=== PATIENT | female | born 1950 | race Caucasian/White ===

== ENCOUNTER 2017-01-29 11:48 | Emergency (ER) | payer OTHER ==
[~2017-01-29] VITALS: Ht 152.4 cm; Wt 36.3 kg
[~2017-01-29 11:48] MED LIST: /METO25TAB PO; /PANT40TA OR; /SUCR1TA OR; /WARF25TA PO; ACET50TAOT PO; AMLO5TAB2 PO; AVEL1TAB PO; CALC PO; CALC20SPR; COLA100C3 PO; COZA50TA18 OR; FLAG500T OR; KETO10TAB PO; LEVOXYL25 MCG OR; LOPR50TA OR; METO25TAB PO; MILKSUS PO; MIRA255PW PO; NORCOTAB PO; OMEP40CA2 PO; PAIN325T OR; PERCOCET PO; PREV30CA6 PO; STOMACH PILL PO; SUCR1TA PO; SYNT112T2 PO; TRAM50TA2 PO; TRAN1.5D2 TOP; ZOFR20TA PO; [UNRECOGNIZED DRUG - CODE] PO; [UNRECOGNIZED DRUG - OTHER] PO
[2017-01-29] MEDS ORDERED: TRAM50TA2 PO (12:06)
[2017-01-29] MEDS ORDERED: LEVO88TA3 PO (12:06)
[2017-01-29] MEDS ORDERED: NS 1,000 ML IV ONE (12:15)
[2017-01-29] MEDS ORDERED: FAMOTIDINE IV BAG 20 MG in APPROPRIATE DILUENT 1 EA IV ONE (12:15)
[2017-01-29] MEDS ORDERED: ONDANSETRON 4MG/2ML VIAL (J2405) IV ONE (12:15)
[2017-01-29 12:43] LABS: BASO % 0.3 % (0.0-1.0); EOS # 0.2 K/mm3 (0.0-0.50); EOS % 1.1 % (0.0-3.0); LARGE UNSTAINED CELL # 0.1 K/mm3 (0.0-0.4); LARGE UNSTAINED CELL % 0.8 % (0.0-4.0); LYMPH % 7.2 % (24.0-44.0); MEAN CORPUSCULAR HEMOGLOBIN 30.4 pg (27.0-33.0); MEAN CORPUSCULAR HGB CONC 33.1 g/dl (32.0-36.5); MEAN CORPUSCULAR VOLUME 91.8 fl (80.0-96.0); MONO # 0.6 K/mm3 (0.0-0.8); MONO % 3.9 % (0.0-5.0); NEUTROPHILS # 12.2 K/mm3 (1.8-7.7); NEUTROPHILS % 86.7 % (36.0-66.0); PLATELET COUNT, AUTOMATED 248 k/mm3 (150-450); RED CELL DISTRIBUTION WIDTH 11.9 % (11.5-14.5); WHITE BLOOD COUNT 14.1 K/mm3 (4.0-10.0)
--- NOTE | 2017-01-29 12:50 | REP ---
Clinical: Abdominal pain. Technique: Upright view of the chest with supine and upright views of the abdomen and pelvis. Comparison: 05/17/2016. Findings: Frontal view of the chest demonstrates chronic changes without free air below the diaphragm to suspect pneumoperitoneum. Supine and upright views of the abdomen and pelvis demonstrate surgical changes. Nonspecific bowel gas pattern without obstruction or perforation. No organomegaly. Skeletal structures demonstrate osteopenia and degenerative change. Right hip replacement. Impression: Nonspecific bowel gas pattern. Signed by Dejan Ledbetter MD 01/29/2017 12:41 P
[2017-01-29 12:51] LABS: INR 1.01
[2017-01-29 13:04] LABS: ALBUMIN 3.6 GM/DL (3.2-5.2); ALBUMIN/GLOBULIN RATIO 1.29 (1.00-1.93); ALKALINE PHOSPHATASE 106 U/L (45-117); ALT/SGPT 22 U/L (12-78); ANION GAP 8 MEQ/L (8-16); AST/SGOT 25 U/L (15-37); BILIRUBIN,DIRECT 0.1 MG/DL (0.0-0.2); BILIRUBIN,TOTAL 0.5 MG/DL (0.2-1.0); BLOOD UREA NITROGEN 13 MG/DL (7-18); CALCIUM LEVEL 8.2 MG/DL (8.8-10.2); CARBON DIOXIDE LEVEL 29 MEQ/L (21-32); CHLORIDE LEVEL 103 MEQ/L (98-107); CREATININE FOR GFR 0.71 MG/DL (0.55-1.02); GLOMERULAR FILTRATION RATE > 60.0 (>45); GLUCOSE, FASTING 101 MG/DL (80-110); SODIUM LEVEL 140 MEQ/L (136-145); TOTAL PROTEIN 6.4 GM/DL (6.4-8.2)
[2017-01-29] MEDS ORDERED: NORC1TAB4 PO (14:24)
[2017-01-29] MEDS ORDERED: ASAC800T2 PO (14:24)
[2017-01-29 14:34] VITALS: BP 140/76
== END 2017-01-29 14:45 | disposition home or self-care (01) ==
LOC: EDBD 11:48 → M ED 12:40
DX: K52.9 Noninfective gastroenteritis and colitis, unspecified (principal); Z87.891 Personal history of nicotine dependence; Z88.8 Allergy status to other drugs, medicaments and biological substances; Z79.899 Other long term (current) drug therapy
CPT/HCPCS: 74022; 80048; 80076; 83690; 85025; 85610; 96365; 96375; 99282; J2405

== ENCOUNTER → 2017-02-11 | Outpatient (REF) | payer OTHER ==
[~2017-02-11] MED LIST changes: +ASAC800T2 PO; +LEVO88TA3 PO; +NORC1TAB4 PO
== END ==
LOC: M LAB REF 09:59
PROVIDERS: ATTEND Physician Assistant Medical
DX: R19.7 Diarrhea, unspecified (principal)

== ENCOUNTER → 2017-03-01 | Outpatient (CLI) | payer OTHER ==
[~2017-03-01] VITALS: Ht 152.4 cm; Wt 36.3 kg
[~2017-03-01] MED LIST changes: +LIDOCAINE 2% INJ 100 MG/5 ML SDV (FOR ANES.) As Ordered ONE; +MESA800T PO; +METO12TA PO; +NS 1,000 ML IV SCH; +PROM25TA GT; +PROPOFOL 200 MG/20 ML VIAL As Ordered ONE; +fentaNYL 100 MCG/2 ML INJECTION (J3010) As Ordered ONE
--- NOTE | 2017-03-01 13:20 | ROOR ---
Patient Name: Kelli Garibay Procedure Date: 03/01/2017 1:02 PM Date of : 1950 Age: 66 Room: [facility] Gender: Female Note Status: Finalized Procedure: Upper GI endoscopy Indications: Nausea with vomiting Providers: Chirag GRIER MD Referring MD: VENUS TABOR MD Requesting Provider: Medicines: Monitored Anesthesia Care Complications: No immediate complications. Procedure: Pre-Anesthesia Assessment: - The heart rate, respiratory rate, oxygen saturations, blood pressure, adequacy of pulmonary ventilation, and response to care were monitored throughout the procedure. The Endoscope was introduced through the mouth, and advanced to the jejunum. The upper GI endoscopy was accomplished without difficulty. The patient tolerated the procedure well. Findings: The examined esophagus was normal. 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 The gastrojejunal anastomosis was characterized by healthy appearing mucosa. This was traversed. The ncohrjdm-bc-zjlwarl limb was examined. The exam of the stomach was otherwise normal. The cardia and gastric fundus were normal on retroflexion. The examined jejunum was normal. Impression: - Normal esophagus. - Chacho-en-Y gastrojejunostomy with gastrojejunal anastomosis characterized by healthy appearing mucosa. - Normal examined jejunum. - No specimens collected. Recommendation: - Observe patient's clinical course. - Gastroparesis diet: - Eat smaller, more frequent meals throughout the day. - Low fat diet. - Liquid/soft foods are tolerated better than solid foods. - Low fiber/well cooked vegetables are tolerated better than high fiber/fibrous foods/raw vegetables. - Avoid medications that inhibit gastric/intestinal motility such as narcotic medications. Chirag Grier MD Chirag GRIER MD 03/01/2017 1:20:43 PM This report has been signed electronically. Number of Addenda: 0 Note Initiated On: 03/01/2017 1:02 PM Estimated Blood Loss: Estimated blood loss: none.
--- NOTE | 2017-03-01 13:42 | ROOR ---
Patient Name: Kelli Garibay Procedure Date: 03/01/2017 1:02 PM Date of : 1950 Age: 66 Room: [facility] Gender: Female Note Status: Finalized Procedure: Colonoscopy Indications: Generalized abdominal pain, Change in bowel habits Providers: Chirag GRIER MD Referring MD: VENUS TABOR MD Requesting Provider: Medicines: Monitored Anesthesia Care Complications: No immediate complications. Procedure: Pre-Anesthesia Assessment: - The heart rate, respiratory rate, oxygen saturations, blood pressure, adequacy of pulmonary ventilation, and response to care were monitored throughout the procedure. The Colonoscope was introduced through the anus and advanced to the cecum, identified by appendiceal orifice and ileocecal valve. The colonoscopy was performed without difficulty. The patient tolerated the procedure well. The quality of the bowel preparation was good. Findings: The perianal and digital rectal examinations were normal. Two sessile polyps were found in the ascending colon and cecum. The polyps were diminutive in size. These polyps were removed with a jumbo cold forceps. Resection and retrieval were complete. A localized area of granular mucosa was found at the anus. Biopsies were taken with a cold forceps for histology. The exam was otherwise without abnormality on direct and retroflexion views. Biopsies for histology were taken with a cold forceps from the entire colon for evaluation of microscopic colitis. Impression: - Two diminutive polyps in the ascending colon and in the cecum, removed with a jumbo cold forceps. Resected and retrieved. - Granular mucosa at the anal verge near small internal hemorrhoids. Biopsied. - The colonoscopy was otherwise normal on direct and retroflexion views. - Biopsies were taken with a cold forceps from the entire colon for evaluation of microscopic colitis. Recommendation: - Telephone endoscopist for pathology results in 2 weeks. - If the pathology report reveals adenomatous tissue, then repeat the colonoscopy for surveillance in 5 years. - Await pathology results. Chirag Grier MD Chirag GRIER MD 03/01/2017 1:42:25 PM This report has been signed electronically. Number of Addenda: 0 Note Initiated On: 03/01/2017 1:02 PM Estimated Blood Loss: Estimated blood loss: none.
[2017-03-01 14:20] VITALS: BP 133/81
== END ==
LOC: M OPP 10:41
PROVIDERS: ATTEND Internal Medicine Gastroenterology
DX: R10.84 Generalized abdominal pain (principal); R19.4 Change in bowel habit; Z12.11 Encounter for screening for malignant neoplasm of colon; D12.0 Benign neoplasm of cecum; D12.2 Benign neoplasm of ascending colon; K62.89 Other specified diseases of anus and rectum; R11.2 Nausea with vomiting, unspecified; Z98.0 Intestinal bypass and anastomosis status; E07.9 Disorder of thyroid, unspecified; I10 Essential (primary) hypertension; K31.84 Gastroparesis; K52.9 Noninfective gastroenteritis and colitis, unspecified; Z87.442 Personal history of urinary calculi; Z79.899 Other long term (current) drug therapy
CPT/HCPCS: 43235; 45380; 88305; 99156; 99157; J3010

== ENCOUNTER 2017-03-21 07:01 | Emergency (ER) | payer OTHER ==
[~2017-03-21] VITALS: Ht 152.4 cm; Wt 36.3 kg
[~2017-03-21 07:01] MED LIST changes: -LIDOCAINE 2% INJ 100 MG/5 ML SDV (FOR ANES.) As Ordered ONE; -NS 1,000 ML IV SCH; -PROPOFOL 200 MG/20 ML VIAL As Ordered ONE; -fentaNYL 100 MCG/2 ML INJECTION (J3010) As Ordered ONE
[2017-03-21 08:11] LABS: BASO % 0.6 % (0.0-1.0); EOS # 0.4 K/mm3 (0.0-0.50); LARGE UNSTAINED CELL # 0.1 K/mm3 (0.0-0.4); LARGE UNSTAINED CELL % 1.1 % (0.0-4.0); LYMPH # 0.9 K/mm3 (1.5-4.5); MEAN CORPUSCULAR HEMOGLOBIN 31.2 pg (27.0-33.0); MEAN CORPUSCULAR VOLUME 91.9 fl (80.0-96.0); MONO # 0.4 K/mm3 (0.0-0.8); MONO % 4.3 % (0.0-5.0); NEUTROPHILS # 7.3 K/mm3 (1.8-7.7); NEUTROPHILS % 80.9 % (36.0-66.0); PLATELET COUNT, AUTOMATED 270 k/mm3 (150-450); RED CELL DISTRIBUTION WIDTH 12.4 % (11.5-14.5)
[2017-03-21 08:16] LABS: INR 0.96
--- NOTE | 2017-03-21 08:23 | REP ---
Clinical: Shortness of breath . Comparison: 01/29/2017 . Findings: The mediastinum and cardiac silhouette are stable and within normal limits for portable technique. The lung cash demonstrate chronic changes without acute consolidation, effusion, or pneumothorax. Skeletal structures are intact. Impression: Chronic stable changes. No acute cardiopulmonary process. Signed by Dejan Ledbetter MD 03/21/2017 08:14 A
[2017-03-21 08:27] LABS: ALBUMIN 3.4 GM/DL (3.2-5.2); ALBUMIN/GLOBULIN RATIO 0.87 (1.00-1.93); ALKALINE PHOSPHATASE 110 U/L (45-117); ALT/SGPT 19 U/L (12-78); ANION GAP 5 MEQ/L (8-16); AST/SGOT 20 U/L (15-37); BILIRUBIN,DIRECT 0.1 MG/DL (0.0-0.2); BILIRUBIN,TOTAL 0.4 MG/DL (0.2-1.0); BLOOD UREA NITROGEN 11 MG/DL (7-18); CALCIUM LEVEL 8.7 MG/DL (8.8-10.2); CARBON DIOXIDE LEVEL 32 MEQ/L (21-32); CHLORIDE LEVEL 103 MEQ/L (98-107); CREATININE FOR GFR 0.69 MG/DL (0.55-1.02); GLOMERULAR FILTRATION RATE > 60.0 (>45); GLUCOSE, FASTING 114 MG/DL (80-110); POTASSIUM SERUM 3.8 MEQ/L (3.5-5.1); SODIUM LEVEL 140 MEQ/L (136-145); TOTAL PROTEIN 7.3 GM/DL (6.4-8.2)
[2017-03-21] MEDS ORDERED: ISOVUE-370 76% 100ML VIAL (Q9967) As Ordered ONE (09:03)
--- NOTE | 2017-03-21 09:45 | REP ---
Clinical: Acute chest pain and shortness of breath. Technique: Axial contrast enhanced images from the thoracic inlet to the upper abdomen using 100 ml Isovue 370 intravenous contrast material with coronal and sagittal re-formations. Findings: Satisfactory enhancement of the pulmonary vasculature is achieved and no filling defects are identified to suggest pulmonary embolus. The lung cash demonstrate chronic COPD and emphysematous changes as well as moderate bronchiectasis and scattered scarring. Nodular densities at the base of the right middle lobe remains stable compared to 2015. A 9 mm non solid density in the periphery of the right middle lobe (image 50) as well as small presumed area of atelectasis/pneumonia involving the right lower lobe represent change from prior examination and warrants followup. No effusion. No pneumothorax. Atherosclerotic changes to the thoracic aorta and coronary arteries noted without aortic aneurysm/dissection or cardiomegaly. No pericardial effusion is appreciated. No obvious adenopathy. Surgical clips at the gastroesophageal junction and evidence of prior gastric bypass surgery noted. Musculoskeletal structures demonstrate age-related degenerative changes without focal osseous abnormality. Impression: 1. No evidence for pulmonary embolus. 2. Small areas of right lower lobe atelectasis/pneumonia identified. 3. Chronic COPD/emphysematous changes and bronchiectasis with mild scattered scarring. 4. A 9 mm non solid opacities in the periphery of the right middle lobe warrants followup in 3 months. Signed by Dejan Ledbetter MD 03/21/2017 09:37 A
[2017-03-21] MEDS ORDERED: MOXIFLOXACIN 400 MG TAB PO ONE (10:00)
[2017-03-21] MEDS ORDERED: AVEL1TAB PO ×2 (12:28→12:43)
[2017-03-21] MEDS ORDERED: ZOFR4TAB3 PO (12:29)
[2017-03-21 12:35] VITALS: BP 141/85
--- NOTE | 2017-03-21 21:08 | ECGEPIP ---
Stationary ECG Study 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
--- NOTE | 2017-03-22 06:32 | ECGEPIP ---
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
--- NOTE | 2017-03-22 17:24 | ED PDOC ---
Post-Departure Follow-Up dr dinero faxed formal report of cta for fu Farrah Lazo MD March 22, 2017 17:24
== END 2017-03-21 12:48 | disposition home or self-care (01) ==
LOC: M ED 07:40
DX: R06.00 Dyspnea, unspecified (principal); J18.9 Pneumonia, unspecified organism; R07.89 Other chest pain; R91.8 Other nonspecific abnormal finding of lung field; J47.9 Bronchiectasis, uncomplicated; I10 Essential (primary) hypertension; Z87.19 Personal history of other diseases of the digestive system; E03.9 Hypothyroidism, unspecified; D64.9 Anemia, unspecified; Z79.899 Other long term (current) drug therapy; Z88.8 Allergy status to other drugs, medicaments and biological substances
CPT/HCPCS: 71010; 71275; 80048; 80076; 82550; 82553; 83880; 84484; 85025; 85610; 85730; 93005; 93041; 94760; 99285; Q9967

== ENCOUNTER → 2017-04-07 | Outpatient (REF) | payer OTHER ==
[~2017-04-07] MED LIST changes: +ZOFR4TAB3 PO
== END ==
LOC: M LAB REF 10:45
PROVIDERS: ATTEND Internal Medicine
DX: A09 Infectious gastroenteritis and colitis, unspecified (principal)

== ENCOUNTER → 2018-01-11 | Outpatient (REF) | payer OTHER | LOC: M LAB REF 16:15 | DX: N39.0 Urinary tract infection, site not specified (principal) | CPT/HCPCS: 87088; 87186 ==

== ENCOUNTER → 2018-03-29 | Outpatient (CLI) | payer OTHER | LOC: M WHC 14:42 | DX: Z12.31 Encounter for screening mammogram for malignant neoplasm of breast (principal) | CPT/HCPCS: 77067 ==

== ENCOUNTER → 2018-06-10 | Outpatient (REF) | payer OTHER | LOC: M LAB REF 10:23 | DX: R30.0 Dysuria (principal) | CPT/HCPCS: 87186 ==

== ENCOUNTER → 2018-09-23 | Outpatient (CLI) | payer OTHER | LOC: M WUC 11:24 | DX: J18.1 Lobar pneumonia, unspecified organism (principal); J90 Pleural effusion, not elsewhere classified; R07.1 Chest pain on breathing; R05 Cough | CPT/HCPCS: 71046 ==

== ENCOUNTER → 2018-10-27 | Outpatient (CLI) | payer OTHER ==
[~2018-10-27] MED LIST changes: +ACET500T15 PO; -ACET50TAOT PO; -AMLO5TAB2 PO; +AMLO5TAB6 PO; -ASAC800T2 PO; +ASAC800T3 PO; -AVEL1TAB PO; +AVEL1TAB3 PO; -COLA100C3 PO; +COLA100C5 PO; -METO12TA PO; +METO1TAB87 PO; +MILK120011 PO; -MILKSUS PO; -PROM25TA GT; +PROM25TA12 GT; -ZOFR20TA PO; +ZOFR4TAB14 PO; +ZOFR4TAB16 PO; -ZOFR4TAB3 PO
--- NOTE | 2018-10-27 12:07 | REP ---
Chest two views HISTORY: Pneumonia Comparison: 09/23/2018 The lungs are hyperinflated. The lungs are clear. The heart is normal in size. The pulmonary vasculature is normal in appearance. The bony structure is intact. IMPRESSION: No acute disease. Electronically Signed by Johan Collado MD 10/27/2018 11:59 A
== END ==
LOC: M WUC 10:41
PROVIDERS: ATTEND Internal Medicine
DX: J18.9 Pneumonia, unspecified organism (principal)

== ENCOUNTER 2019-01-20 12:31 | Inpatient (IN) | payer MEDICARE, OTHER ==
[~2019-01-20] VITALS: Ht 152.4 cm; Wt 48.8 kg
[2019-01-20] MEDS ORDERED: AMIT25TA PO (12:50)
[2019-01-20] MEDS ORDERED: PARO1TAB33 PO (12:51)
[2019-01-20] MEDS ORDERED: NS 500 ML IV ONE (13:00)
[2019-01-20] MEDS ORDERED: ONDANSETRON 4MG/2ML VIAL (J2405) IV ONE (13:00)
[2019-01-20] MEDS ORDERED: MORPHINE 4 MG/ML 1ML VIAL/SYRINGE (J2270) IV ONE (13:15)
[2019-01-20 13:49] LABS: BASO % 0.2 % (0.0-1.0); EOS % 0.2 % (0.0-3.0); HEMATOCRIT 39.6 % (36.0-47.0); HEMOGLOBIN 13.3 g/dl (12.0-15.5); LYMPH # 0.7 10^3/uL (1.5-4.5); LYMPH % 5.8 % (24.0-44.0); MEAN CORPUSCULAR HEMOGLOBIN 29.4 pg (27.0-33.0); MEAN CORPUSCULAR HGB CONC 33.6 g/dl (32.0-36.5); MEAN CORPUSCULAR VOLUME 87.4 fl (80.0-96.0); MONO # 0.9 10^3/uL (0.0-0.8); MONO % 6.9 % (0.0-5.0); NEUTROPHILS # 10.8 10^3/uL (1.8-7.7); NEUTROPHILS % 86.2 % (36.0-66.0); PLATELET COUNT, AUTOMATED 178 10^3/uL (150-450); RED BLOOD COUNT 4.53 10^6/uL (4.00-5.40); WHITE BLOOD COUNT 12.5 10^3/uL (4.0-10.0)
[2019-01-20 14:23] LABS: ALBUMIN 3.3 GM/DL (3.2-5.2); ALT/SGPT 11 U/L (12-78); BILIRUBIN,DIRECT 0.3 MG/DL (0.0-0.2); BILIRUBIN,TOTAL 0.9 MG/DL (0.2-1.0); BLOOD UREA NITROGEN 9 MG/DL (7-18); CARBON DIOXIDE LEVEL 26 MEQ/L (21-32); CHLORIDE LEVEL 100 MEQ/L (98-107); CPK CREATINE PHOSPHOKINASE 84 U/L (26-192); CREATININE FOR GFR 0.72 MG/DL (0.55-1.30); GLOMERULAR FILTRATION RATE > 60.0 (>45); GLUCOSE, FASTING 104 MG/DL (70-100); LIPASE 59 U/L (73-393); MB/CK RELATIVE INDEX 4.29 (< OR =4); POTASSIUM SERUM 2.8 MEQ/L (3.5-5.1); SODIUM LEVEL 136 MEQ/L (136-145); TOTAL PROTEIN 7.3 GM/DL (6.4-8.2); TROPONIN I < 0.02 NG/ML (< 0.10)
[2019-01-20] MEDS ORDERED: POTASSIUM CHLORIDE 10 MEQ SR TABLET PO ONE (14:30)
--- NOTE | 2019-01-20 14:33 | REP ---
Abdomen flat upright PA chest three views History: Abdominal pain Comparison: 01/29/2017 Air is present in small and large intestine. There are no air-fluid levels or dilated loops of intestine. There is no pneumoperitoneum. The lungs are clear. Impression: Nonspecific bowel gas pattern. Electronically Signed by Johan Collado MD 01/20/2019 02:25 P
[2019-01-20] MEDS ORDERED: BACTRIM 160MG/800MG DS TAB PO ONE (15:00)
[2019-01-20] MEDS ORDERED: BACT800T5 PO (15:04)
[2019-01-20] MEDS ORDERED: methylPREDNISolone INJ 125 MG/2 ML VIAL (J2930) IV ONE (15:15)
[2019-01-20] MEDS ORDERED: ACETAMINOPHEN 325 MG TAB PO ONE (16:15)
[2019-01-20] MEDS ORDERED: LEVALBUTEROL 1.25 MG/0.5 ML CONCENTRATE NEB NEB ONE (17:30)
[2019-01-20] MEDS ORDERED: LEVO100T54 PO (17:59)
[2019-01-20] MEDS ORDERED: ONDA4TAB6 PO (17:59)
[2019-01-20] MEDS ORDERED: ONDANSETRON 4MG/2ML VIAL (J2405) IV PRN (19:00)
[2019-01-20] MEDS ORDERED: traMADol 50 MG TAB PO PRN (19:00)
[2019-01-20] MEDS ORDERED: ACETAMINOPHEN 500 MG TAB PO PRN (19:00)
[2019-01-20] MEDS: NS 1,000 ML IV SCH (19:31)
--- NOTE | 2019-01-20 20:09 | HPE ---
DATE OF ADMISSION: 01/20/2019 A 68-year-old female with past medical history of chronic gastric ulcers status post partial gastrectomy with Billroth II anastomosis, history of hypertension, hypothyroidism, and a remote history of chronic active tobacco abuse presents to the emergency room with nausea, vomiting, and diarrhea which began last that continued into Tuesday and on into the day of admission today, so she came to the emergency room (ER) for evaluation. In the ER she was found to be hypokalemic and had a potassium of 40 mEq for repletion. Was started on intravenous (IV) fluids. Patient was noted to have a fever of 102. Was given Tylenol and was found to also be hypoxic on room air. Was saturating in the 86th percentile and was started on 2 liters nasal cannula. She was given nebulizer treatment and 125 of Solu-Medrol. She denied any shortness of breath or any upper respiratory symptoms, only the diarrhea and nausea and vomiting. She had no dysuria or frequency or urgency; however, the urinalysis did reveal that she had a urinary tract infection (UTI). Patient was started on intravenous (IV) Cipro. She has never had a history of pulmonary function tests (PFTs), though. She has a 25-year history of tobacco abuse; quit in 1993. She will be admitted for further management. PAST MEDICAL HISTORY: 1. Hypertension. 2. Hypothyroidism. 3. History of intractable ulcers, status post partial gastrectomy with Billroth II anastomosis. 4. History of gastroesophageal reflux disease (GERD). 5. Depression. ALLERGIES: NONSTEROIDAL ANTI-INFLAMMATORY DRUGS (NSAIDS). FAMILY HISTORY: Noncontributory. SOCIAL HISTORY: Patient denies tobacco, alcohol, or illicit drugs. Does have a 25-pack year history. She quit in 1993, though. HOME MEDICATIONS: - Tylenol as needed - amitriptyline 25 mg orally at bedtime - amlodipine 5 mg orally daily - Synthroid 100 mcg orally daily - metoprolol 25 mg orally twice daily - omeprazole 40 mg orally at bedtime - Zofran 4 mg orally every 4 hours as needed - paroxetine 20 mg orally daily - tramadol 50 mg orally three times a day as needed REVIEW OF SYSTEMS: Negative for [id number]-budsm systems except what is mentioned in the history of present illness (HPI). VITAL SIGNS: Blood pressure is 154/80, heart rate is 114, regular, respiratory rate is 20, temperature is currently 98.3, but it was as high as 102.2, oxygen saturation is 92% on 1 liter nasal cannula. HEAD: Atraumatic, normocephalic. NECK: Supple. No jugular venous distention (JVD). LUNGS: Diminished breath sounds bilaterally. HEART: S1, S2 audible. No murmurs appreciated. ABDOMEN: Soft. Positive bowel sounds. No pedal edema. SKIN: Intact. NEUROLOGIC: Patient awake, alert, oriented times three. LABORATORY DATA: WBC 12.5, hemoglobin 13.3, hematocrit 39.6, platelets are 178,000. Sodium 136, potassium 2.8, chloride 100, CO2 of 26, BUN is 9, creatinine 0.72. AST 16, ALT 11, lipase 59. Urinalysis is suggestive of a UTI. IMPRESSION: 1. Urinary tract infection (UTI) 2. Chronic obstructive pulmonary disease (COPD) exacerbation. 3. Hyperkalemia. 4. Viral gastroenteritis. PLAN: Patient will be admitted to the medical/surgical floor. We will continue the patient on intravenous (IV) Zofran for symptomatic relief. We will also start her on IV fluids with normal saline 100 mL an hour. I will put her on IV Cipro 400 every 12 until urine cultures come back and will give her DuoNeb and Solu-Medrol IV 40 mg every 8. She definitely has COPD, but it has not been diagnosed yet through PFTs. Recommending PFTs ordered as an outpatient for further diagnosis and severity of obstruction. Chest x-ray was negative for consolidation, so no antibiotics are necessary for an infectious etiology for the COPD exacerbation. Will continue following her care in the medical/surgical floor.
[2019-01-20 20:45] VITALS: BP 131/66
[2019-01-20] MEDS: METOPROLOL TART 25 MG TABLET PO SCH (21:54)
[2019-01-20] MEDS: AMITRIPTYLINE 25 MG TAB PO SCH (21:54)
[2019-01-20] MEDS: OMEPRAZOLE 20 MG CAP PO SCH (21:54)
[2019-01-20] MEDS: methylPREDNISolone INJ 125 MG/2 ML VIAL (J2930) IV SCH (23:25)
[2019-01-21] MEDS: NS 1,000 ML IV SCH ×3 (05:25→22:30)
[2019-01-21 06:00] VITALS: BP 101/67
[2019-01-21 06:57] LABS: BASO % 0.1 % (0.0-1.0); HEMATOCRIT 37.6 % (36.0-47.0); LYMPH # 0.6 10^3/uL (1.5-4.5); LYMPH % 5.7 % (24.0-44.0); MEAN CORPUSCULAR HEMOGLOBIN 28.7 pg (27.0-33.0); MEAN CORPUSCULAR HGB CONC 31.9 g/dl (32.0-36.5); MONO # 0.4 10^3/uL (0.0-0.8); MONO % 4.2 % (0.0-5.0); NEUTROPHILS # 9.4 10^3/uL (1.8-7.7); PLATELET COUNT, AUTOMATED 179 10^3/uL (150-450); RED BLOOD COUNT 4.18 10^6/uL (4.00-5.40); WHITE BLOOD COUNT 10.5 10^3/uL (4.0-10.0)
[2019-01-21 07:25] LABS: BLOOD UREA NITROGEN 9 MG/DL (7-18); CARBON DIOXIDE LEVEL 27 MEQ/L (21-32); CHLORIDE LEVEL 107 MEQ/L (98-107); CREATININE FOR GFR 0.64 MG/DL (0.55-1.30); GLOMERULAR FILTRATION RATE > 60.0 (>45); GLUCOSE, FASTING 163 MG/DL (70-100); POTASSIUM SERUM 3.8 MEQ/L (3.5-5.1); SODIUM LEVEL 139 MEQ/L (136-145)
[2019-01-21] MEDS: methylPREDNISolone INJ 125 MG/2 ML VIAL (J2930) IV SCH ×2 (08:29→17:29)
[2019-01-21] MEDS: amLODIPine 5 MG TAB PO SCH (08:31)
[2019-01-21] MEDS: METOPROLOL TART 25 MG TABLET PO SCH ×2 (08:31→21:30)
[2019-01-21] MEDS: LEVOTHYROXINE 100MCG TABLET (0.1MG) PO SCH (08:31)
[2019-01-21] MEDS ORDERED: FLUBLOK(EGG FREE)(QUAD)INFLUENZA VACC 0.5ML SYRINGE (90682)18YRS&OLDER IM ONE (09:00)
[2019-01-21 14:00] VITALS: BP 132/83
[2019-01-21] MEDS: ONDANSETRON 4 MG ORAL DISINTEGRATING TAB (Q0162 PER 1MG) PO PRN (14:37)
[2019-01-21] MEDS: LEVALBUTEROL 1.25 MG/0.5 ML CONCENTRATE NEB NEB PRN ×2 (17:28→21:30)
[2019-01-21] MEDS: BENZONATATE 100 MG CAP PO SCH (17:28)
[2019-01-21] MEDS: PARoxetine 20 MG TAB PO SCH (18:02)
--- NOTE | 2019-01-21 18:39 | ECGEPIP ---
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
--- NOTE | 2019-01-21 20:57 | IPN ---
DATE: 01/21/2019 SUBJECTIVE: Patient seen and examined in the room today. Patient states since admission her diarrhea has been improving. No recurrence of diarrhea. At baseline, patient had loose stool approximately three times a day. Prior to admission, patient had severe nausea, vomiting and diarrhea that she says stool streamed out of her. Patient also noted to have increased cough. Patient stated she has never had pulmonary function tests in the past. She did feel some improvement since admission. OBJECTIVE: VITAL SIGNS: Temperature 97.1, pulse 74, respirations 18, blood pressure 101/62, pulse oximetry 96% on 2 liters nasal cannula. GENERAL: Patient is alert and awake, fatigued. HEENT: Normocephalic, atraumatic. CARDIOVASCULAR: Positive S1, S2. Regular rate. LUNGS: Decreased breath sounds bilaterally. I cannot appreciate any significant crackles. No wheezes appreciated at the time of the encounter. ABDOMEN: Soft, nontender. Bowel sounds present. EXTREMITIES: No significant edema appreciated. LABORATORY DATA: WBC 10.5, hemoglobin 12, hematocrit 37.6, platelet count is 179. Sodium is 139, potassium 3.8, chloride 107, carbon dioxide is 27, BUN is 9, creatinine 0.86, GFR greater than 60. Microbiology: Urine culture shows contamination. ASSESSMENT AND PLAN: 1. Severe diarrhea. Gastrointestinal (GI) panel ordered; however, since admission, patient does not have any significant stool output. Continue intravenous (IV) fluids. Continue to monitor patient's GI symptoms. 2. Acute respiratory distress with increased cough. Patient does have a significant smoking history; however, patient never had a pulmonary function test performed in the past. Patient had a chest x-ray on admission. No significant findings noted on the x-ray. Will also follow with a respiratory panel. Empirically, patient was started on ciprofloxacin. It was thought that patient may have chronic obstructive pulmonary disease (COPD) exacerbation. Will continue the steroids and as needed nebulizers this morning. 3. History of intractable ulcer status post partial gastrostomy. Since the procedure, patient has had loose stool and patient has 3-4 loose bowel movements; however, patient stated her current severity and frequency of the diarrhea is not her baseline. 4. Hypothyroidism. On Synthroid. 5. Hypokalemia. Presented with potassium level of 3.8. Most likely due to the severe GI loss. Supplement was given to the patient. Currently, the potassium is in the normal range. Continue to monitor. 6. On amitriptyline and Paxil. 7. Hypertension. On Norvasc. On Lopressor. 8. Deep venous thrombosis (DVT) prophylaxis. On thromboembolitic deterrents (TEDs) and sequentials. MTDD
[2019-01-21] MEDS: OMEPRAZOLE 20 MG CAP PO SCH (21:29)
[2019-01-21] MEDS: CIPROFLOXACIN 400 MG in APPROPRIATE DILUENT 1 EA IV SCH (21:29)
[2019-01-21] MEDS: AMITRIPTYLINE 25 MG TAB PO SCH (21:29)
[2019-01-21 22:00] VITALS: BP 146/70
[2019-01-22] MEDS: methylPREDNISolone INJ 125 MG/2 ML VIAL (J2930) IV SCH ×4 (00:25→23:15)
[2019-01-22] MEDS: BENZONATATE 100 MG CAP PO SCH ×4 (00:26→23:15)
[2019-01-22] MEDS: LEVALBUTEROL 1.25 MG/0.5 ML CONCENTRATE NEB NEB PRN ×4 (04:49→20:54)
[2019-01-22 06:00] VITALS: BP 142/74
[2019-01-22 06:48] LABS: HEMATOCRIT 33.3 % (36.0-47.0); MEAN CORPUSCULAR HEMOGLOBIN 29.4 pg (27.0-33.0); PLATELET COUNT, AUTOMATED 183 10^3/uL (150-450); RED BLOOD COUNT 3.74 10^6/uL (4.00-5.40); WHITE BLOOD COUNT 11.7 10^3/uL (4.0-10.0)
[2019-01-22 07:10] LABS: BLOOD UREA NITROGEN 7 MG/DL (7-18); CALCIUM LEVEL 7.9 MG/DL (8.8-10.2); CARBON DIOXIDE LEVEL 25 MEQ/L (21-32); CHLORIDE LEVEL 112 MEQ/L (98-107); CREATININE FOR GFR 0.64 MG/DL (0.55-1.30); GLOMERULAR FILTRATION RATE > 60.0 (>45); GLUCOSE, FASTING 154 MG/DL (70-100); MAGNESIUM LEVEL 1.8 MG/DL (1.8-2.4); POTASSIUM SERUM 3.1 MEQ/L (3.5-5.1); SODIUM LEVEL 143 MEQ/L (136-145)
[2019-01-22] MEDS ORDERED: POTASSIUM CHLORIDE 10 MEQ SR TABLET PO ONE (07:45)
[2019-01-22] MEDS: LEVOTHYROXINE 100MCG TABLET (0.1MG) PO SCH (08:03)
[2019-01-22] MEDS: amLODIPine 5 MG TAB PO SCH (08:03)
[2019-01-22] MEDS: PARoxetine 20 MG TAB PO SCH (08:03)
[2019-01-22] MEDS: CIPROFLOXACIN 400 MG in APPROPRIATE DILUENT 1 EA IV SCH (08:04)
[2019-01-22] MEDS: NS 1,000 ML IV SCH ×2 (08:04→21:01)
[2019-01-22] MEDS: METOPROLOL TART 25 MG TABLET PO SCH ×2 (08:04→21:00)
[2019-01-22 14:00] VITALS: BP 144/68
[2019-01-22 20:00] VITALS: BP 157/74
--- NOTE | 2019-01-22 20:06 | IPNPDOC ---
Text Note Date of Service The patient was seen on 01/22/19. NOTE SUBJECTIVE: Patient is seen and examined in the room today. Patient states nausea, vomiting and diarrhea improved. Patient notices increased cough with sputum color change especially in the last several days. OBJECTIVE: VITAL SIGNS: Listed below. GENERAL: Patient is alert and awake, fatigued. HEENT: Normocephalic, atraumatic. CARDIOVASCULAR: Positive S1, S2. Regular rate. LUNGS: Decreased breath sounds bilaterally. No significant crackles. No wheezes appreciated at the time of the encounter. ABDOMEN: Soft, nontender. Bowel sounds present. EXTREMITIES: No significant edema appreciated. LABORATORY DATA: Listed below. Microbiology: Urine culture shows contamination. ASSESSMENT AND PLAN: #. Acute respiratory distress with increased cough. - Patient has a significant smoking history. Never had PFT performed. CXR did not show significant finding. - Respiratory panel ordered previously but it was not performed. Will re-order the panel. Will order sputum culture. - Patient complains about increased cough and sputum color change. Breathing is improved with neb treatment. Continue with steroid, Levaquin and PRN neb #. Severe diarrhea. - Gastrointestinal (GI) panel ordered; however, since admission, patient does not have any significant stool output. - Continue intravenous (IV) fluids. Continue to monitor patient's GI symptoms. #. History of gastric ulcer status post partial gastrostomy. - Since the procedure, patient has had loose stool and patient has 3-4 loose bowel movements; however, patient stated her current severity and frequency of the diarrhea is not her baseline. - On PPI. #. Hypokalemia. - Presented with potassium level of 2.8. Most likely due to the severe GI loss prior to admission. Supplement was given to the patient. Will supplement if needed. #. Hypothyroidism. - On Synthroid. #. Depression. - On amitriptyline and Paxil. #. Hypertension. - On Norvasc. On Lopressor. #. Deep venous thrombosis (DVT) prophylaxis. - On thromboembolitic deterrents (TEDs) and sequentials. VS,Fishbone, I+O VS, Fishbone, I+O Laboratory Tests 01/22/19 06:32 Red Blood Count 3.74 L, Mean Corpuscular Volume 89.0, Mean Corpuscular Hemoglobin 29.4, Mean Corpuscular Hemoglobin Concent 33.0, Red Cell Distribution Width 13.3, Calcium Level 7.9 L Vital Signs Date Time Temp Pulse Resp B/P (MAP) Pulse Ox O2 Delivery O2 Flow Rate FiO2 01/22/19 14:00 98.4 115 18 144/68 (93) 94 01/21/19 08:15 2.0 01/20/19 18:16 Nasal Cannula I&O- Last 24 Hours up to 6 AM 01/22/19 06:00 Intake Total 780 ml Output Total 1200 ml Balance -420 ml LIVAN GREY DO Jan 22, 2019 20:06
[2019-01-22] MEDS: AMITRIPTYLINE 25 MG TAB PO SCH (21:00)
[2019-01-22] MEDS: OMEPRAZOLE 20 MG CAP PO SCH (21:00)
[2019-01-23 05:00] VITALS: BP 166/87
[2019-01-23] MEDS: LevoFLOXacin 750 MG TABLET PO SCH (05:17)
[2019-01-23] MEDS: LEVOTHYROXINE 100MCG TABLET (0.1MG) PO SCH (05:17)
[2019-01-23] MEDS: LEVALBUTEROL 1.25 MG/0.5 ML CONCENTRATE NEB NEB PRN ×4 (05:26→20:12)
[2019-01-23] MEDS: NS 1,000 ML IV SCH (06:14)
[2019-01-23 07:04] LABS: HEMATOCRIT 35.3 % (36.0-47.0); HEMOGLOBIN 11.5 g/dl (12.0-15.5); MEAN CORPUSCULAR HEMOGLOBIN 28.8 pg (27.0-33.0); MEAN CORPUSCULAR HGB CONC 32.6 g/dl (32.0-36.5); MEAN CORPUSCULAR VOLUME 88.3 fl (80.0-96.0); PLATELET COUNT, AUTOMATED 222 10^3/uL (150-450); WHITE BLOOD COUNT 12.2 10^3/uL (4.0-10.0)
[2019-01-23 07:25] LABS: BLOOD UREA NITROGEN 5 MG/DL (7-18); CALCIUM LEVEL 7.9 MG/DL (8.8-10.2); CARBON DIOXIDE LEVEL 26 MEQ/L (21-32); CHLORIDE LEVEL 108 MEQ/L (98-107); CREATININE FOR GFR 0.65 MG/DL (0.55-1.30); GLOMERULAR FILTRATION RATE > 60.0 (>45); GLUCOSE, FASTING 124 MG/DL (70-100); MAGNESIUM LEVEL 2.1 MG/DL (1.8-2.4); SODIUM LEVEL 142 MEQ/L (136-145)
[2019-01-23] MEDS: BENZONATATE 100 MG CAP PO SCH ×3 (08:42→23:37)
[2019-01-23] MEDS: PARoxetine 20 MG TAB PO SCH (08:43)
[2019-01-23] MEDS: amLODIPine 5 MG TAB PO SCH (08:43)
[2019-01-23] MEDS ORDERED: POTASSIUM CHLORIDE 10 MEQ SR TABLET PO ONE ×2 (08:45→18:00)
[2019-01-23] MEDS: METOPROLOL TART 25 MG TABLET PO SCH ×2 (08:46→20:43)
[2019-01-23] MEDS: methylPREDNISolone INJ 125 MG/2 ML VIAL (J2930) IV SCH (08:47)
[2019-01-23 14:00] VITALS: BP 148/78
[2019-01-23] MEDS: ONDANSETRON 4 MG ORAL DISINTEGRATING TAB (Q0162 PER 1MG) PO PRN (15:04)
[2019-01-23] MEDS: predniSONE 20 MG TAB PO SCH (16:02)
--- NOTE | 2019-01-23 18:02 | IPNPDOC ---
Subjective Date Seen The patient was seen on 01/23/19. Subjective Chief Complaint/HPI Patient seen and examined at bedside. Reports continued improvement of her respiratory status. Her IV steroids have been transitioned to by mouth. Objective Physical Examination General Exam: Positive: Alert, Cooperative, No Acute Distress ENT Exam: Positive: Atraumatic, Mucous membr. moist/pink Neck Exam: Negative: JVD Chest Exam: Positive: Diminished Heart Exam: Positive: Rate Normal, Normal S1, Normal S2 Abdomen Exam: Positive: Soft; Negative: Tenderness Extremity Exam: Negative: Tenderness, Swelling Psych Exam: Positive: Oriented x 3 Assessment /Plan Plan/VTE VTE Prophylaxis Ordered?: Yes Plan Acute Respiratory Distress possibly 2/2 Pneumonia, underlying COPD CXR did not show significant finding. Respiratory panel negative Patient reports smoking 1.5 PPD of Tobacco for 40+ years, quit 20+ years ago. However denies ever having formal PFTs done Symptoms have improved with Xopenex therapy, Steroids, and Levaquin--we will cont to monitor Patient advised to follow-up as an outpatient for PFTs once she is over her respiratory illness Severe Diarrhea, resolved Gastrointestinal (GI) panel ordered; however, since admission, patient does not have any significant stool output. History of gastric ulcer status post partial gastrostomy. Continue PPI. Hypothyroidism. On Synthroid. Depression. On amitriptyline and Paxil. Hypertension. Continue Norvasc, Lopressor. Deep venous thrombosis (DVT) prophylaxis. (TEDs) and sequentials. Disposition-pending continued clinical improvement. IV SoluMedrol transitioned to by mouth prednisone. Anticipate discharge in 24-48 hours. VS, I&O, 24H, Fishbone Vital Signs/I&O Vital Signs Date Time Temp Pulse Resp B/P (MAP) Pulse Ox O2 Delivery O2 Flow Rate FiO2 01/23/19 14:00 97.8 76 18 148/78 (101) 97 01/21/19 08:15 2.0 01/20/19 18:16 Nasal Cannula I&O- Last 24 Hours up to 6 AM 01/23/19 06:00 Intake Total 2040 ml Output Total 1000 ml Balance 1040 ml Laboratory Data 24H LABS Laboratory Tests 2 01/23/19 06:26: Nucleated Red Blood Cells % (auto) 0.0, Anion Gap 8, Glomerular Filtration Rate > 60.0, Blood Urea Nitrogen 5L, Creatinine 0.65, Sodium Level 142, Potassium Level 3.0L, Chloride Level 108H, Carbon Dioxide Level 26, Calcium Level 7.9L, Magnesium Level 2.1 CBC/BMP Laboratory Tests 01/23/19 06:26 Red Blood Count 4.00, Mean Corpuscular Volume 88.3, Mean Corpuscular Hemoglobin 28.8, Mean Corpuscular Hemoglobin Concent 32.6, Red Cell Distribution Width 13.4, Calcium Level 7.9 L Microbiology Microbiology 01/20/19 Blood Culture - Preliminary, Resulted No Growth after 72 hours. All specime... 01/20/19 Blood Culture - Preliminary, Resulted No Growth after 72 hours. All specime... 01/23/19 Gram Stain - Final, Resulted 01/23/19 Sputum Culture, Resulted Pending 01/22/19 Respiratory Virus Panel (PCR) (KRISTEN) - Final, Complete 01/20/19 Urine Culture - Final, Complete CARRIE ANDINO MD Jan 23, 2019 18:02
[2019-01-23] MEDS: OMEPRAZOLE 20 MG CAP PO SCH (20:43)
[2019-01-23] MEDS: AMITRIPTYLINE 25 MG TAB PO SCH (20:43)
[2019-01-23 22:00] VITALS: BP 144/73
[2019-01-24 06:00] VITALS: BP 140/85
[2019-01-24] MEDS: LevoFLOXacin 750 MG TABLET PO SCH (06:13)
[2019-01-24] MEDS: LEVOTHYROXINE 100MCG TABLET (0.1MG) PO SCH (06:13)
[2019-01-24 07:13] LABS: HEMATOCRIT 39.3 % (36.0-47.0); HEMOGLOBIN 12.7 g/dl (12.0-15.5); MEAN CORPUSCULAR HEMOGLOBIN 28.8 pg (27.0-33.0); MEAN CORPUSCULAR HGB CONC 32.3 g/dl (32.0-36.5); MEAN CORPUSCULAR VOLUME 89.1 fl (80.0-96.0); PLATELET COUNT, AUTOMATED 232 10^3/uL (150-450); RED BLOOD COUNT 4.41 10^6/uL (4.00-5.40); WHITE BLOOD COUNT 13.6 10^3/uL (4.0-10.0)
[2019-01-24 07:45] LABS: BLOOD UREA NITROGEN 8 MG/DL (7-18); CALCIUM LEVEL 8.6 MG/DL (8.8-10.2); CARBON DIOXIDE LEVEL 32 MEQ/L (21-32); CHLORIDE LEVEL 101 MEQ/L (98-107); CREATININE FOR GFR 0.59 MG/DL (0.55-1.30); GLOMERULAR FILTRATION RATE > 60.0 (>45); GLUCOSE, FASTING 100 MG/DL (70-100); MAGNESIUM LEVEL 1.8 MG/DL (1.8-2.4); POTASSIUM SERUM 3.3 MEQ/L (3.5-5.1); SODIUM LEVEL 140 MEQ/L (136-145)
[2019-01-24] MEDS: LEVALBUTEROL 1.25 MG/0.5 ML CONCENTRATE NEB NEB PRN (08:08)
[2019-01-24 08:49] VITALS: BP 140/85
[2019-01-24] MEDS: PARoxetine 20 MG TAB PO SCH (08:49)
[2019-01-24] MEDS: predniSONE 20 MG TAB PO SCH (08:49)
[2019-01-24] MEDS: amLODIPine 5 MG TAB PO SCH (08:49)
[2019-01-24] MEDS: METOPROLOL TART 25 MG TABLET PO SCH (08:49)
[2019-01-24] MEDS: BENZONATATE 100 MG CAP PO SCH (08:49)
[2019-01-24] MEDS ORDERED: PROAAER10 INH (10:24)
[2019-01-24] MEDS ORDERED: PRED10TA2 PO (10:24)
[2019-01-24] MEDS ORDERED: LEVA750T7 PO (10:24)
--- NOTE | 2019-01-24 16:29 | DS.PDOC ---
Discharge Summary General Date of Admission Jan 22, 2019 at 07:36 Date of Discharge 01/24/19 Discharge Summary PROCEDURES PERFORMED DURING STAY: None. ADMITTING/DISCHARGE DIAGNOSES: Acute Respiratory Distress possibly 2/2 Pneumonia, underlying COPD Hypertension. Hypothyroidism. History of intractable ulcers, status post partial gastrectomy with Billroth II anastomosis. History of gastroesophageal reflux disease (GERD). Depression ?COPD COMPLICATIONS/CHIEF COMPLAINT: Hypokalemia, Uti. HISTORY OF PRESENT ILLNESS: . 68-year-old female with past medical history of hypertension, hypothyroidism, GERD, ?COPD, and depression presented to the ER with a chief complaint of worsening shortness of breath. The patient stated that she was having fevers, chills, and a productive cough at home. She denied any complaints of chest pain, palpitations, abdominal pain, or any nausea/vomiting/diarrhea. The patient was admitted to the hospitalist service with a diagnosis of community-acquired pneumonia and possible underlying COPD exacerbation. During hospitalization, the patient was treated with antibiotic therapy and steroids. The patient's respiratory status significantly improved thereafter. The patient has been transitioned to by mouth antibiotic therapy and a prednisone taper. The patient states that she is feeling much better and is eager to return home. I have advised the patient to follow-up with her primary care physician within 7 days. The patient is also to get PFTs done once her respiratory status is optimized. Lastly, the patient is to return to the ER for any acute emergencies. DISCHARGE MEDICATIONS: Please see below. ALLERGIES: Please see below. PHYSICAL EXAMINATION ON DISCHARGE: VITAL SIGNS: Please see below. General Exam: Positive: Alert, Cooperative, No Acute Distress ENT Exam: Positive: Atraumatic, Mucous membr. moist/pink Neck Exam: Negative: JVD Chest Exam: Positive: Diminished Heart Exam: Positive: Rate Normal, Normal S1, Normal S2 Abdomen Exam: Positive: Soft; Negative: Tenderness Extremity Exam: Negative: Tenderness, Swelling Psych Exam: Positive: Oriented x 3 LABORATORY DATA: Please see below. IMAGING: Abdomen flat upright PA chest three views History: Abdominal pain Comparison: 01/29/2017 Air is present in small and large intestine. There are no air-fluid levels or dilated loops of intestine. There is no pneumoperitoneum. The lungs are clear. Impression: Nonspecific bowel gas pattern. PROGNOSIS: Fair ACTIVITY: As tolerated. DIET: 2gm low sodium diet DISCHARGE PLAN: DISPOSITION: 01 Home, Self-Care. DISCHARGE INSTRUCTIONS: I have advised the patient to follow-up with her primary care physician within 7 days. The patient is also to get PFTs done once her respiratory status is optimized. Lastly, the patient is to return to the ER for any acute emergencies. DISCHARGE CONDITION: Stable. TIME SPENT ON DISCHARGE: Greater than 30 minutes. Vital Signs/I&Os Vital Signs Date Time Temp Pulse Resp B/P (MAP) Pulse Ox O2 Delivery O2 Flow Rate FiO2 01/24/19 08:49 99 140/85 01/24/19 06:00 96.9 19 91 01/21/19 08:15 2.0 01/20/19 18:16 Nasal Cannula I&O- Last 24 Hours up to 6 AM 01/24/19 06:00 Intake Total 1110 ml Output Total 1750 ml Balance -640 ml Laboratory Data Labs 24H Laboratory Tests 2 01/24/19 06:32: Nucleated Red Blood Cells % (auto) 0.0, Anion Gap 7L, Glomerular Filtration Rate > 60.0, Blood Urea Nitrogen 8#, Creatinine 0.59, Sodium Level 140, Potassium Level 3.3L, Chloride Level 101, Carbon Dioxide Level 32, Calcium Level 8.6L, Magnesium Level 1.8 CBC/BMP Laboratory Tests 01/24/19 06:32 Red Blood Count 4.41, Mean Corpuscular Volume 89.1, Mean Corpuscular Hemoglobin 28.8, Mean Corpuscular Hemoglobin Concent 32.3, Red Cell Distribution Width 13.3, Calcium Level 8.6 L Microbiology Microbiology 01/20/19 Blood Culture - Preliminary, Resulted No Growth after 72 hours. All specime... 01/20/19 Blood Culture - Preliminary, Resulted No Growth after 72 hours. All specime... 01/23/19 Gram Stain - Final, Resulted 01/23/19 Sputum Culture, Resulted Pending 01/22/19 Respiratory Virus Panel (PCR) (KRISTEN) - Final, Complete 01/20/19 Urine Culture - Final, Complete Discharge Medications Scheduled Amitriptyline HCl (Amitriptyline HCl) 25 Mg Tab, 25 MG PO QHS, (Reported) Amlodipine Besylate (Amlodipine Besylate) 5 Mg Tab, 5 MG PO DAILY, (Reported) Levofloxacin Hemihydrate (Levaquin) 750 Mg Tab, 750 MG PO DAILY@06 Levothyroxine Sodium (Levoxyl) 100 Mcg Tab, 100 MCG PO DAILY, (Reported) Metoprolol Tartrate (Metoprolol Tartrate) 25 Mg Tab, 25 MG PO BID, (Reported) Omeprazole (Omeprazole) 40 Mg Cap, 40 MG PO QHS, (Reported) Paroxetine Hydrochloride (Paroxetine Hydrochloride) 20 Mg Tab, 20 MG PO DAILY, (Reported) Prednisone (Prednisone) 10 Mg Tab, 10 MG PO TAPER Take 4 tabs daily x 3 days, then 3 tabs daily x 3 days, then 2 tabs daily x 3 days, then 1 tab daily x 3 days and stop Scheduled PRN Acetaminophen (Acetaminophen) 500 Mg Tab, 1,000 MG PO Q6H PRN for PAIN OR FEVER, (Reported) Albuterol Sulfate (Proair Hfa) 108 Mcg/Act Aer, 2 PUFF INH Q4-6HP PRN for wheezing Ondansetron (Ondansetron Odt) 4 Mg Tab, 4 MG PO Q4H PRN for NAUSEA OR VOMITING, (Reported) Tramadol HCl (Tramadol HCl) 50 Mg Tab, 50 MG PO TID PRN for PAIN, (Reported) Allergies Coded Allergies: NSAIDs (Verified Adverse Reaction, Intermediate, Hx of Gastric Ulcers and Gastrectomy, 01/29/17) CARRIE ANDINO MD Jan 24, 2019 16:29
== END 2019-01-24 11:29 | disposition home or self-care (01) | DRG 392 ==
LOC: EDBD 12:31 → M ED 12:31 → M ED INP 18:49 → M MS4PR 21:05 → OBSVTOIN 01-22 07:36 → M MS4PR 01-23 12:40
PROVIDERS: ADMIT Internal Medicine; ATTEND Internal Medicine
DX: A08.4 Viral intestinal infection, unspecified (principal); J44.1 Chronic obstructive pulmonary disease with (acute) exacerbation; I10 Essential (primary) hypertension; E03.9 Hypothyroidism, unspecified; K21.9 Gastro-esophageal reflux disease without esophagitis; F32.9 Major depressive disorder, single episode, unspecified; E87.5 Hyperkalemia; Z90.49 Acquired absence of other specified parts of digestive tract; Z88.8 Allergy status to other drugs, medicaments and biological substances; Z98.0 Intestinal bypass and anastomosis status; Z87.891 Personal history of nicotine dependence; Z79.891 Long term (current) use of opiate analgesic; Z79.899 Other long term (current) drug therapy

== ENCOUNTER → 2019-02-08 | Outpatient (CLI) | payer MEDICARE ==
[~2019-02-08] MED LIST changes: -/METO25TAB PO; -/PANT40TA OR; -/SUCR1TA OR; -/WARF25TA PO; +AMIT25TA PO; +BACT800T5 PO; -CALC PO; +COUM1TAB18 PO; +HYDR-3715 PO; +LEVA750T7 PO; +LEVO100T54 PO; -MESA800T PO; +MESA800T8 PO; +METO1TAB63 PO; -METO25TAB PO; -MIRA255PW PO; -NORC1TAB4 PO; +NORC1TAB7 PO; -NORCOTAB PO; +ONDA4TAB6 PO; +OXYC1TAB23 PO; +OYST1TAB PO; +PARO1TAB33 PO; -PERCOCET PO; +POLY1POW4 PO; +PRED10TA2 PO; +PROAAER10 INH; +PROT1TAB2 OR; +SCOP1PAT2 TOP; +SUCR1TAB56 OR; -TRAN1.5D2 TOP
--- NOTE | 2019-02-08 15:21 | REP ---
Clinical: Chest pain. Technique: PA and lateral. Comparison: 10/27/2018. Findings: Mediastinum and cardiac silhouette are within normal limits and stable. Lung cash demonstrate stable chronic COPD/emphysematous changes. No acute consolidation, effusion, or pneumothorax. Skeletal structures demonstrate osteopenia and degenerative change. Impression: Chronic COPD and interstitial changes. No acute cardiopulmonary process or focal consolidation. Electronically Signed by Dejan Ledbetter MD 02/08/2019 03:13 P
== END ==
LOC: M WUC 14:41
PROVIDERS: ATTEND Internal Medicine
DX: J44.9 Chronic obstructive pulmonary disease, unspecified (principal); M85.88 Other specified disorders of bone density and structure, other site; R07.89 Other chest pain

== ENCOUNTER 2019-02-25 09:23 | Inpatient (IN) | payer MEDICARE ==
[~2019-02-25] VITALS: Ht 152.4 cm; Wt 46.1 kg
[~2019-02-25 09:23] MED LIST changes: +PARoxetine 20 MG TAB PO SCH
[2019-02-25] MEDS ORDERED: ONDANSETRON 4MG/2ML VIAL (J2405) IV ONE (10:00)
[2019-02-25] MEDS ORDERED: MORPHINE 2 MG/ML 1ML SYRINGE (J2270) IV PRN (10:00)
[2019-02-25 10:42] LABS: BASO % 0.2 % (0.0-1.0); EOS % 0.1 % (0.0-3.0); HEMATOCRIT 39.3 % (36.0-47.0); HEMOGLOBIN 12.9 g/dl (12.0-15.5); LYMPH # 0.8 10^3/uL (1.5-4.5); LYMPH % 6.1 % (24.0-44.0); MEAN CORPUSCULAR HEMOGLOBIN 29.5 pg (27.0-33.0); MEAN CORPUSCULAR HGB CONC 32.8 g/dl (32.0-36.5); MEAN CORPUSCULAR VOLUME 89.7 fl (80.0-96.0); MONO # 1.8 10^3/uL (0.0-0.8); MONO % 13.3 % (0.0-5.0); NEUTROPHILS # 10.8 10^3/uL (1.8-7.7); NEUTROPHILS % 79.7 % (36.0-66.0); PLATELET COUNT, AUTOMATED 216 10^3/uL (150-450); RED BLOOD COUNT 4.38 10^6/uL (4.00-5.40); WHITE BLOOD COUNT 13.6 10^3/uL (4.0-10.0)
--- NOTE | 2019-02-25 10:53 | REP ---
REASON: Pain. PRIORS: None. There are calcifications seen in both medial and lateral compartments. There is no acute fracture, dislocation, or subluxation. IMPRESSION: Meniscal calcifications likely secondary to either calcified degenerative meniscal changes or calcium pyrophosphate deposition disorder. The distinction needs to be made on a clinical basis. There does appear to be a suprapatellar bursal effusion. Electronically Signed by Bertin Rincon DO 02/25/2019 01:52 P
[2019-02-25] MEDS ORDERED: ACETAMINOPHEN TAB 650MG DOSE (2X325MG) PO ONE (11:00)
[2019-02-25 11:04] LABS: BLOOD UREA NITROGEN 11 MG/DL (7-18); CALCIUM LEVEL 8.2 MG/DL (8.8-10.2); CARBON DIOXIDE LEVEL 29 MEQ/L (21-32); CHLORIDE LEVEL 99 MEQ/L (98-107); CREATININE FOR GFR 0.89 MG/DL (0.55-1.30); GLOMERULAR FILTRATION RATE > 60.0 (>45); GLUCOSE, FASTING 112 MG/DL (70-100); POTASSIUM SERUM 3.7 MEQ/L (3.5-5.1); SODIUM LEVEL 134 MEQ/L (136-145); URIC ACID 4.3 MG/DL (2.6-6.0)
[2019-02-25 13:10] LABS: MUCIN CLOT TEST 4+ (4+)
[2019-02-25 13:14] LABS: BODY FLUID RHEUMATOID SCREEN NEGATIVE (NEGATIVE)
[2019-02-25 13:23] LABS: CRYSTALS, BODY FLUID NONE SEEN (NONE SEEN); SOURCE, BODY FLUID CRYSTALS RT KNEE
[2019-02-25 13:39] LABS: SOURCE, BODY FLUID GLUCOSE RT KNEE; SOURCE, BODY FLUID URIC ACID RT KNEE; URIC ACID, BODY FLUID 4.2 MG/DL (NOT ESTABLISHED)
[2019-02-25 13:57] LABS: SOURCE, BODY FLUID RT KNEE
[2019-02-25 13:58] LABS: SYNOVIAL FLUID COLOR YELLOW (YELLOW)
[2019-02-25] MEDS ORDERED: NS 1,000 ML IV SCH (14:30)
[2019-02-25] MEDS ORDERED: PROAAER10 INH (14:51)
[2019-02-25] MEDS ORDERED: ceFAZolin 1GM INJ (J0690 PER 500MG) As Ordered ONE (15:01)
--- NOTE | 2019-02-25 15:14 | HPEPDOC ---
[facility] Medical History & Physical Date of Admission Feb 25, 2019 History and Physical CHIEF COMPLAINT: Knee pain HISTORY OF PRESENT ILLNESS: 68 yo female presents with 3 day history of worsening knee pain. Denies any falls or trauma to the knee. Denies chest pain, shortness of breath, dyspnea on exertion, headaches, N/V/D. Denies ever having chest pain or any cardiac history. PAST MEDICAL HISTORY: 1. HTN 2. Hypothyroidism secondary to radioactive iodine treatment for hyperparathyroidism 3. Gastric ulcer s/p partial gastrectomy and Biliroth II anastomosis 4. GERD 5. Depression PAST SURGICAL HISTORY: 1. partial gastrectomy, biliroth II anastomosis - 1993 Dr. Gaona 2. subtotal parathyroidectomy 2007 3. right hip fx repair 2012? 4. several upper/lower endoscopies SOCIAL HISTORY: Tobacco use: one ppd/28 years, quit 1993 Lives with daughter ALLERGIES: Please see below. REVIEW OF SYSTEMS: Negative except as per HPI. HOME MEDICATIONS: Please see below. PHYSICAL EXAMINATION: VSS General: NAD, lying comfortably in bed HEENT: NC/AT, EOMI, PERRL Lungs: CTA B/L Heart: +S1S2, RRR Abd: soft, NT, +BS, well healed surgical scars ASSESSMENT/PLAN: 68 yo female for worsening right knee pain, found to have septic joint. #septic joint - orthopedics consultation - NPO/IVF for planned surgical intervention - IV Abx post op #HTN - continue lopressor, norvasc #hypothyroidism - continue synthroid #GERD/gastric ulcers - continue prilosec #Depression - continue paroxetine #DVT prophylaxis - mechanical Disposition: Patient for planned surgical intervention for septic joint. IV antibiotics post op - ceftriaxone/vancomycin Vital Signs Vital Signs Date Time Temp Pulse Resp B/P (MAP) Pulse Ox O2 Delivery O2 Flow Rate FiO2 02/25/19 15:03 98.2 02/25/19 14:47 86 17 115/68 (84) 94 Room Air Laboratory Data Labs 24H Laboratory Tests 2 02/25/19 09:53: Immature Granulocyte % (Auto) 0.6, White Blood Count 13.6H, Red Blood Count 4.38, Hemoglobin 12.9, Hematocrit 39.3, Mean Corpuscular Volume 89.7, Mean Corpuscular Hemoglobin 29.5, Mean Corpuscular Hemoglobin Concent 32.8, Red Cell Distribution Width 12.3, Platelet Count 216, Neutrophils (%) (Auto) 79.7H, Lymphocytes (%) (Auto) 6.1L, Monocytes (%) (Auto) 13.3H, Eosinophils (%) (Auto) 0.1, Basophils (%) (Auto) 0.2, Neutrophils # (Auto) 10.8H, Lymphocytes # (Auto) 0.8L, Monocytes # (Auto) 1.8H, Eosinophils # (Auto) 0.0, Basophils # (Auto) 0.0, Nucleated Red Blood Cells % (auto) 0.0, Anion Gap 6L, Glomerular Filtration Rate > 60.0, Uric Acid 4.3, Blood Urea Nitrogen 11, Creatinine 0.89, Sodium Level 134L, Potassium Level 3.7, Chloride Level 99, Carbon Dioxide Level 29, Calcium Level 8.2L, C-Reactive Protein, Quantitative 13.70H 02/25/19 13:00: Body Fluid Source RT KNEE, Body Fluid WBC (Auto) 56831Y, Body Fluid RBC (Auto) < 2, Body Fluid Mononuclear Cells % Auto 3.8H, Fluid Polymorphonuclear Cell % Auto 96.2H, Body Fluid Crystals NONE SEEN, Body Fluid Crystal Source RT KNEE, Body Fluid Glucose Source RT KNEE, Body Fluid Glucose 5, Body Fluid Uric Acid 4.2, Body Fluid Uric Acid Source RT KNEE, Body Fluid Rheumatoid Factor Screen NEGATIVE, Body Fluid Rheumatoid Factor Source RT KNEE, Synovial Fluid Source RT KNEE, Synovial Fluid Color YELLOW, Synovial Fluid Appearance CLOUDY, Synovial Fluid Mucin Clot 4+ CBC/BMP Laboratory Tests 02/25/19 09:53 Red Blood Count 4.38, Mean Corpuscular Volume 89.7, Mean Corpuscular Hemoglobin 29.5, Mean Corpuscular Hemoglobin Concent 32.8, Red Cell Distribution Width 12.3 , Neutrophils (%) (Auto) 79.7 H, Lymphocytes (%) (Auto) 6.1 L, Monocytes (%) (Auto) 13.3 H, Eosinophils (%) (Auto) 0.1, Basophils (%) (Auto) 0.2, Neutrophils # (Auto) 10.8 H, Lymphocytes # (Auto) 0.8 L, Monocytes # (Auto) 1.8 H, Eosinophils # (Auto) 0.0, Basophils # (Auto) 0.0, Calcium Level 8.2 L Microbiology Microbiology 02/25/19 Blood Culture, Received Pending 02/25/19 Blood Culture, Received Pending 02/25/19 Gram Stain - Final, Resulted 02/25/19 Body Fluid Culture, Resulted Pending Home Medications Scheduled Amitriptyline HCl (Amitriptyline HCl) 25 Mg Tab, 25 MG PO QHS Amlodipine Besylate (Amlodipine Besylate) 5 Mg Tab, 5 MG PO DAILY Levothyroxine Sodium (Levoxyl) 100 Mcg Tab, 100 MCG PO DAILY Metoprolol Tartrate (Metoprolol Tartrate) 25 Mg Tab, 25 MG PO BID Omeprazole (Omeprazole) 40 Mg Cap, 40 MG PO QHS Paroxetine HCl (Paroxetine HCl) 20 Mg Tab, 20 MG PO DAILY Scheduled PRN Acetaminophen (Acetaminophen) 500 Mg Tab, 1,000 MG PO Q6H PRN for PAIN OR FEVER Albuterol Sulfate (Proair Hfa) 8.5 Gm Hfa.aer.ad, 2 PUFF INH Q4H PRN for SHORTNESS OF BREATH Ondansetron (Ondansetron Odt) 4 Mg Tab, 4 MG PO Q4H PRN for NAUSEA OR VOMITING Tramadol HCl (Tramadol HCl) 50 Mg Tab, 50 MG PO TID PRN for PAIN Allergies Coded Allergies: NSAIDS (Non-Steroidal Anti-Inflamma (Verified Allergy, Unknown, 02/25/19) RESHMA CASTANEDA MD Feb 25, 2019 15:14
[2019-02-25] MEDS ORDERED: ALBUTEROL 90 MCG/ACT 8GM HFA INHALER INH PRN (15:15)
[2019-02-25] MEDS ORDERED: ONDANSETRON 4 MG ORAL DISINTEGRATING TAB (Q0162 PER 1MG) PO PRN (15:15)
[2019-02-25] MEDS ORDERED: ceFAZolin 2 GM/D5W 50 ML IV BAG (J0690 PER 500MG) As Ordered ONE (15:19)
[2019-02-25] MEDS ORDERED: LIDOCAINE 2% INJ 100 MG/5 ML SDV (FOR ANES.) As Ordered ONE (15:41)
[2019-02-25] MEDS ORDERED: PROPOFOL 200 MG/20 ML VIAL As Ordered ONE (15:41)
[2019-02-25] MEDS ORDERED: PHENYLephrine HCL 500 MCG/5 ML (100MCG/ML) SYRINGE (J2370) As Ordered ONE (15:41)
[2019-02-25] MEDS ORDERED: METOCLOPRAMIDE INJ 10MG/2ML VIAL (J2765) As Ordered ONE ×2 (15:41→17:21)
[2019-02-25] MEDS ORDERED: fentaNYL 100 MCG/2 ML INJECTION (J3010) As Ordered ONE ×2 (15:41→17:23)
[2019-02-25] MEDS ORDERED: ONDANSETRON 4MG/2ML VIAL (J2405) As Ordered ONE ×2 (15:41→17:21)
[2019-02-25] MEDS ORDERED: dexameTHASONE 4 MG/ML 1ML VIAL (J1100) As Ordered ONE (15:41)
[2019-02-25] MEDS ORDERED: ePHEDrine SULFATE 25 MG/5 ML(5MG/ML) SYRINGE As Ordered ONE (15:55)
[2019-02-25] MEDS: fentaNYL 100 MCG/2 ML INJECTION (J3010) IV PRN ×2 (17:25→17:30)
[2019-02-25] MEDS ORDERED: ONDANSETRON 4MG/2ML VIAL (J2405) IV PRN (17:30)
[2019-02-25] MEDS ORDERED: MEPERIDINE INJ 25 MG/ML VIAL (J2175) IV PRN (17:30)
[2019-02-25] MEDS ORDERED: LR 1,000 ML IV SCH (17:30)
[2019-02-25] MEDS ORDERED: METOCLOPRAMIDE INJ 10MG/2ML VIAL (J2765) IV PRN (17:30)
[2019-02-25] MEDS ORDERED: PERCOCET 5MG/325MG TAB PO PRN (17:30)
[2019-02-25] MEDS ORDERED: PERCOCET 5MG/325MG TAB As Ordered ONE (17:40)
[2019-02-25] MEDS ORDERED: traMADol 50 MG TAB PO PRN (17:45)
[2019-02-25 18:11] LABS: SOURCE, BODY FLUID RT KNEE
[2019-02-25 18:12] LABS: SYNOVIAL FLUID COLOR YELLOW (YELLOW)
[2019-02-25] MEDS ORDERED: VANCOMYCIN HCL 1,000 MG, VIAL MATE ADAPTER 1 EACH in D5W 250 ML IV STA (18:14)
[2019-02-25] MEDS ORDERED: VANCOMYCIN 1000 MG/20 ML VIAL (J3370) As Ordered ONE (18:19)
[2019-02-25 19:40] VITALS: BP 99/58
[2019-02-25 20:10] VITALS: BP 99/58
[2019-02-25] MEDS: AMITRIPTYLINE 25 MG TAB PO SCH (20:47)
[2019-02-25] MEDS: OMEPRAZOLE 20 MG CAP PO SCH (20:47)
[2019-02-25] MEDS: METOPROLOL TART 25 MG TABLET PO SCH (20:48)
--- NOTE | 2019-02-25 21:03 | ECGEPIP ---
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
[2019-02-25 21:10] VITALS: BP 87/48
[2019-02-25 22:10] VITALS: BP 85/48
[2019-02-25 23:10] VITALS: BP 94/53
[2019-02-26] VITALS (7 sets, daily range): BP systolic 90–120; BP diastolic 45–62
--- NOTE | 2019-02-26 04:14 | PHACANCOPD ---
PHARMACY VANCOMYCIN DOSING Pt Demographics Demographics Patient Age:68 , Weight:46.100 , Gender: female Adjusted Body Weight Date: 02/26/19, Adjusted Body Weight: [48.6] Kg-ACTUAL WT Vancomycin Vancomycin indication: SEPTIC ARTHRITIS RT KNEE Vancomycin Target Ranges: 15-20 mcg/ml Vancomycin Load Y/N: No Load Dose Date Time Vancomycin Load Dose: Date: Time: Vancomycin Dose Date: 02/26/19. Current Vancomycin Dose: [1GM Q18H] Intermittent Dosing?: No Labs Labs Laboratory Tests 02/25/19 09:53 Red Blood Count 4.38, Mean Corpuscular Volume 89.7, Mean Corpuscular Hemoglobin 29.5, Mean Corpuscular Hemoglobin Concent 32.8, Red Cell Distribution Width 12.3, Neutrophils (%) (Auto) 79.7 H, Lymphocytes (%) (Auto) 6.1 L, Monocytes (%) (Auto) 13.3 H, Eosinophils (%) (Auto) 0.1, Basophils (%) (Auto) 0.2, Neutrophils # (Auto) 10.8 H, Lymphocytes # (Auto) 0.8 L, Monocytes # (Auto) 1.8 H, Eosinophils # (Auto) 0.0, Basophils # (Auto) 0.0, Calcium Level 8.2 L Micro Microbiology 02/25/19 Blood Culture, Received Pending 02/25/19 Blood Culture, Received Pending 02/25/19 Gram Stain - Final, Resulted 02/25/19 Body Fluid Culture, Resulted Pending 02/25/19 Gram Stain, Received Pending 02/25/19 Wound Culture, Received Pending 02/25/19 Anaerobic Culture, Received Pending 02/25/19 Gram Stain, Received Pending 02/25/19 Abscess Culture, Received Pending 02/25/19 Anaerobic Culture, Received Pending Creatinine Clearance Date:02/26/19. Creatinine Clearance: [44.8].CALCULATED Assessment and Plan Maintaining Current Dose?: Yes Reason for dose change: No Dose Change Pharmacist Note Pharmacist Note Date: 02/26/19. Pharmacist note:[id number] admitted w/septic arthritis rt knee.SCR=0.89,CRCL=44.8 calculated,allergy=nsaids.Receiving Ceftriaxone 1 gm Q24H plus Vancomycin per Pharmacy consult. Vancomycin 1 Gram administered in ED@18;26.Will continue at 1 gram IV n00Mytet to begin 02/26@0600.First trough is scheduled 02/26@2300(prior to 3rd dose)-will continue to follow. ASHKAN [facility] Feb 26, 2019 04:14
[2019-02-26] MEDS: cefTRIAXone SOD 1 GM in D5W MINI-BAG PLUS 50 ML IV SCH (04:32)
[2019-02-26] MEDS: VANCOMYCIN HCL 1,000 MG, VIAL MATE ADAPTER 1 EACH in D5W 250 ML IV SCH ×2 (05:09→23:11)
[2019-02-26] MEDS: LEVOTHYROXINE 100MCG TABLET (0.1MG) PO SCH (05:09)
[2019-02-26 06:37] LABS: BASO % 0.1 % (0.0-1.0); HEMATOCRIT 32.6 % (36.0-47.0); LYMPH # 0.4 10^3/uL (1.5-4.5); LYMPH % 3.6 % (24.0-44.0); MEAN CORPUSCULAR VOLUME 90.6 fl (80.0-96.0); MONO # 0.5 10^3/uL (0.0-0.8); MONO % 4.4 % (0.0-5.0); NEUTROPHILS # 10.3 10^3/uL (1.8-7.7); NEUTROPHILS % 91.1 % (36.0-66.0); PLATELET COUNT, AUTOMATED 200 10^3/uL (150-450); WHITE BLOOD COUNT 11.3 10^3/uL (4.0-10.0)
[2019-02-26 06:44] LABS: MEAN CORPUSCULAR HEMOGLOBIN 29.1 pg (27.0-33.0)
[2019-02-26 06:55] LABS: HEMOGLOBIN 10.5 g/dl (12.0-15.5)
[2019-02-26 07:14] LABS: BLOOD UREA NITROGEN 11 MG/DL (7-18); CALCIUM LEVEL 8.2 MG/DL (8.8-10.2); CARBON DIOXIDE LEVEL 26 MEQ/L (21-32); CHLORIDE LEVEL 104 MEQ/L (98-107); CREATININE FOR GFR 0.73 MG/DL (0.55-1.30); GLOMERULAR FILTRATION RATE > 60.0 (>45); GLUCOSE, FASTING 168 MG/DL (70-100); POTASSIUM SERUM 3.9 MEQ/L (3.5-5.1); SODIUM LEVEL 136 MEQ/L (136-145)
--- NOTE | 2019-02-26 07:58 | REP ---
REASON FOR EXAM: Preoperative evaluation. COMPARISON: Multiple, the latest 02/08/2019 There are chronic lung field changes status quo. The technique utilized in obtaining the radiograph has magnified the cardiac silhouette and accentuated the interstitial markings. The heart is not enlarged. The pleural angles are sharp. There are no new abnormal opacities. The osseous structures are stable and intact. IMPRESSION: No acute cardiopulmonary disease. Electronically Signed by Bertin Rincon DO 02/26/2019 02:01 P
[2019-02-26] MEDS: MIRALAX *UNIT DOSE* 17GM PACKET PO SCH (08:34)
[2019-02-26] MEDS: MOM 30ML SUSPENSION UDC PO SCH (08:34)
[2019-02-26] MEDS: amLODIPine 5 MG TAB PO SCH (08:35)
--- NOTE | 2019-02-26 08:45 | IPNPDOC ---
Text Note Date of Service The patient was seen on 02/26/19. NOTE Subjective: Patient seen and examined at bedside. No acute overnight events reported. Underwent surgical intervention yesterday, tolerated procedure well. Denies chest pain, shortness of breath, headaches, N/V/D. Objective: VSS General: NAD, lying comfortably in bed HEENT: NC/AT, EOMI Lungs: CTA B/L Heart: +S1S2, RRR Abd: soft, NT, +BS, well healed surgical scars Ext: right knee bandages in place, drain in place with serosanguineous fluid ASSESSMENT/PLAN: 68 yo female for worsening right knee pain, found to have septic joint. #septic joint - IV Abx - ceftriaxone/vanco pending cultures - s/p right knee arthroscopic irrigation and drainage from ortho, assistance appreciated #HTN - continue lopressor, norvasc #hypothyroidism - continue synthroid #GERD/gastric ulcers - continue prilosec #Depression - continue paroxetine #DVT prophylaxis - mechanical Disposition: IV Abx, cultures pending, ortho f/u VS,Fishbone, I+O VS, Fishbone, I+O Laboratory Tests 02/25/19 09:53 Red Blood Count 4.38, Mean Corpuscular Volume 89.7, Mean Corpuscular Hemoglobin 29.5, Mean Corpuscular Hemoglobin Concent 32.8, Red Cell Distribution Width 12.3, Neutrophils (%) (Auto) 79.7 H, Lymphocytes (%) (Auto) 6.1 L, Monocytes (%) (Auto) 13.3 H, Eosinophils (%) (Auto) 0.1, Basophils (%) (Auto) 0.2, Neutrophils # (Auto) 10.8 H, Lymphocytes # (Auto) 0.8 L, Monocytes # (Auto) 1.8 H, Eosinophils # (Auto) 0.0, Basophils # (Auto) 0.0, Calcium Level 8.2 L 02/26/19 05:46 Red Blood Count 3.60 L, Mean Corpuscular Volume 90.6, Mean Corpuscular Hemoglobin 29.1, Mean Corpuscular Hemoglobin Concent 0.0 L, Red Cell Distributio n Width 12.2, Neutrophils (%) (Auto) 91.1 H, Lymphocytes (%) (Auto) 3.6 L, Monocytes (%) (Auto) 4.4, Eosinophils (%) (Auto) 0.0, Basophils (%) (Auto) 0.1, Neutrophils # (Auto) 10.3 H, Lymphocytes # (Auto) 0.4 L, Monocytes # (Auto) 0.5, Eosinophils # (Auto) 0.0, Basophils # (Auto) 0.0 02/26/19 05:47 Calcium Level 8.2 L Vital Signs Date Time Temp Pulse Resp B/P (MAP) Pulse Ox O2 Delivery O2 Flow Rate FiO2 02/26/19 08:35 18 02/26/19 08:35 70 120/62 02/26/19 06:00 97.2 99 2.0 02/25/19 14:47 Room Air I&O- Last 24 Hours up to 6 AM 02/26/19 06:00 Intake Total 2360 ml Output Total 255 ml Balance 2105 ml RESHMA CASTANEDA MD Feb 26, 2019 08:45
[2019-02-26] MEDS: METOPROLOL TART 25 MG TABLET PO SCH ×2 (09:00→20:19)
--- NOTE | 2019-02-26 11:48 | RO ---
DATE OF PROCEDURE: 02/25/2019 PREOPERATIVE DIAGNOSIS: Right septic knee arthritis. POSTOPERATIVE DIAGNOSIS: Right septic knee arthritis. PROCEDURE PERFORMED: Right knee arthroscopic irrigation and debridement and synovectomy. SURGEON: Rashaad Cleveland MD TRUCK PACKER: None. ANESTHESIA PROVIDER: Dr. Caldwell ANESTHESIA GIVEN: General laryngeal mask airway (LMA) anesthesia. ESTIMATED BLOOD LOSS: 50 mL. ANTIBIOTICS: 2 grams Ancef given after cultures were taken. MATERIAL SENT TO THE LAB: Right knee aspirate for cell count and culture and synovial tissue for culture. TOURNIQUET TIME: 23 minutes 250 mmHg right thigh. COMPLICATIONS: None. INDICATIONS FOR PROCEDURE: Janet teague is a 68-year-old female who presented to the ED earlier today after an episode where she was treated for shingles about 10 days ago and then 2 days ago developed sudden onset of tense knee effusion and difficulty bearing weight. She did not present to the emergency department until earlier today. She had inflammatory markers that were drawn demonstrating an elevated white cell count and CRP, and radiographs demonstrating chondrocalcinosis and knee effusion. She underwent diagnostic arthrocentesis by the emergency room which revealed a synovial fluid cell count of 74,000 with 96% PMNs. Given these findings the patient has a diagnosis of septic knee arthritis. I discussed with her the nature of her condition, the risks, benefits, indications and alternatives of operative versus nonoperative management, recommended arthroscopic irrigation and debridement. The patient expressed understanding and provided written informed consent for right knee arthroscopic irrigation, debridement, synovectomy and other procedures as indicated based on the arthroscopic findings. Informed consent was obtained. I counseled her that I will be her operating surgeon but her follow-up care will be conducted by [facility]. INTRAOPERATIVE FINDINGS: There was significant synovitis diffusely about the knee. There was also significant chondrocalcinosis with underlying arthritis and degenerative meniscal tears. The anterior cruciate ligament (ACL) and posterior cruciate ligament (PCL) were intact. DESCRIPTION OF PROCEDURE: The patient was positively identified in the preop holding area where the surgical site was marked. She was then brought to the operating room where she was placed under general LMA anesthesia. She was positioned supine on a regular table with all bony prominences appropriately padded. Sequential compression device (SCD) placed on the nonoperative extremity for deep vein thrombosis (DVT) prophylaxis. She was prepped and draped in the usual sterile fashion. A final time out was performed. I began by performing an aspirate under sterile conditions and I aspirated about 40 mL of cloudy yellow fluid from the knee which was sent off for synovial fluid culture and cell count intraoperatively. I then began by making a standard anterolateral viewing portal and anteromedial working portal. I used a pituitary rongeur and took a few samples of inflamed synovium and sent it to the lab for tissue culture. The patient then received her intraoperative antibiotics. I then performed the diagnostic arthroscopy with the above-noted findings. I performed a thorough synovectomy followed by irrigation of 15 liters of normal saline through the knee. After completion of the irrigation and debridement I placed a 10-Croatian round drain into the lateral gutter. Final arthroscopic photos were taken. Instruments were removed from the knee and the effusion was evacuated. The wounds were then closed with simple interrupted #3-0 nylon suture. Sterile dressings were applied. Tourniquet was let down at 23 minutes and this ended the procedure. I was present and scrubbed in for all portions of the case. POSTOPERATIVE PLAN: The patient will be admitted to hospital floor under the hospitalist service. She will undergo physical therapy for ambulation. She will be weightbearing as tolerated. She will get broad-spectrum IV antibiotics pending tissue and fluid cultures, and the drain will remain in place for 48 hours. RIGO
[2019-02-26] MEDS ORDERED: LIDOCAINE 1% MDV 20ML VIAL As Ordered ONE (13:53)
--- NOTE | 2019-02-26 14:57 | CR.PDOC ---
General Date of Consultation: Feb 25, 2019 Referring Provider: Marshal Hamilton M.D. Attending Physician: MANNY ENGLISH MD Consultation REASON FOR CONSULTATION/CHIEF COMPLAINT: R knee pain/swelling. HISTORY OF PRESENT ILLNESS: Patient is a 68 y/o female who was treated for shingles approximately 2 weeks ago who developed a sudden onset R knee pain and inability to bear weight 2 days ago. Patient had subjective fever at home and presented to the ER this morning for evaluation. She underwent diagnostic arthrocentesis by the ER physician with a synovial fluid cell count over 70,000. The patient denies any antecedent knee pain, chest pain, or shortness of breath currently, but was also treated for an upper respiratory infection prior to her treatment for shingles within the last month. ALLERGIES: Please see below. HOME MEDICATIONS: Please see below. PAST MEDICAL HISTORY: 1. Hypertension. 2. Hypothyroidism 3. GERD 4. Depression 5. COPD. PAST SURGICAL HISTORY: 1. 2. Parathyroidectomy 3. Thyroid ablation 4. Gastric bypass FAMILY HISTORY: non contributory SOCIAL HISTORY: Lives with daughter. 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 Former smoker quit in 1994. Independent in all ADLs REVIEW OF SYSTEMS: CONSTITUTIONAL: + fevers in ER. HEENT: no headaches, vision disturbances. CARDIOVASCULAR: No chest pain, palpitations. RESPIRATORY: No cough, wheeze, SOB. + recent URI GENITOURINARY: No pain or burning with urination. MUSCULOSKELETAL: R knee pain per HPI. GASTROINTESTINAL: + GI upset with valtrex treatment. NEUROLOGICAL: + Shingles per HPI. PHYSICAL EXAMINATION: VITAL SIGNS: Please see below. GENERAL APPEARANCE: Well nourished female, NAD. HEENT: Normocephalic, atraumatic. RESPIRATORY: Non labored breathing. CARDIOVASCULAR: RRR, 2+ DP/PT pulses RLE. EXTREMITIES: Focused exam of the R knee demonstrates palpable effusion. Pain on medial and lateral joint line. Pain with passive and active knee ROM, no pain with axial load. NEUROLOGICAL: Sensation and motor intact in all RLE distributions. LABORATORY DATA: Please see below. Knee arthrocentesis demonstrates 57501 WBC with >96% PMN, Elevated WBC, CRP Radiographs demonstrate knee effusion, chondrocalcinosis ASSESSMENT: 68 y/o female with septic knee arthritis right knee PLAN: I counseled the patient on the nature of her condition and the risks, benefits, indications, and alternatives of operative and non operative treatment and recommended R knee arthroscopic irrigation and debridement. She will be admitted to the hospitalist service for IV antibiotics, management of her comorbidities, and infectious disease consultation. I counseled her that I will be her operating surgeon but her follow up care will be conducted by the [facility]opedic [facility]. She expressed understanding with this arrangement and provided written informed consent for R knee arthroscopic I&D. She will be admitted to the OR, be NPO, and perioperative antibiotics will be withheld until intraoperative wound cultures. Patient expressed understanding and all questions were answered. Vital Signs/I&O Vital Signs Date Time Temp Pulse Resp B/P (MAP) Pulse Ox O2 Delivery O2 Flow Rate FiO2 02/25/19 14:47 86 17 115/68 (84) 94 Room Air 02/25/19 12:15 100.0 Laboratory Data Labs 24H Laboratory Tests 2 02/25/19 09:53: Immature Granulocyte % (Auto) 0.6, White Blood Count 13.6H, Red Blood Count 4.38, Hemoglobin 12.9, Hematocrit 39.3, Mean Corpuscular Volume 89.7, Mean Corpuscular Hemoglobin 29.5, Mean Corpuscular Hemoglobin Concent 32.8, Red Cell Distribution Width 12.3, Platelet Count 216, Neutrophils (%) (Auto) 79.7H, Lymphocytes (%) (Auto) 6.1L, Monocytes (%) (Auto) 13.3H, Eosinophils (%) (Auto) 0.1, Basophils (%) (Auto) 0.2, Neutrophils # (Auto) 10.8H, Lymphocytes # (Auto) 0.8L, Monocytes # (Auto) 1.8H, Eosinophils # (Auto) 0.0, Basophils # (Auto) 0.0, Nucleated Red Blood Cells % (auto) 0.0, Anion Gap 6L, Glomerular Filtration Rate > 60.0, Uric Acid 4.3, Blood Urea Nitrogen 11, Creatinine 0.89, Sodium Level 134L, Potassium Level 3.7, Chloride Level 99, Carbon Dioxide Level 29, Calcium Level 8.2L, C-Reactive Protein, Quantitative 13.70H 02/25/19 13:00: Body Fluid Source RT KNEE, Body Fluid WBC (Auto) 94033F, Body Fluid RBC (Auto) < 2, Body Fluid Mononuclear Cells % Auto 3.8H, Fluid Polymorphonuclear Cell % Auto 96.2H, Body Fluid Crystals NONE SEEN, Body Fluid Crystal Source RT KNEE, Body Fluid Glucose Source RT KNEE, Body Fluid Glucose 5, Body Fluid Uric Acid 4.2, Body Fluid Uric Acid Source RT KNEE, Body Fluid Rheumatoid Factor Screen NEGATIVE, Body Fluid Rheumatoid Factor Source RT KNEE, Synovial Fluid Source RT KNEE, Synovial Fluid Color YELLOW, Synovial Fluid Appearance CLOUDY, Synovial Fluid Mucin Clot 4+ CBC/BMP Laboratory Tests 02/25/19 09:53 Red Blood Count 4.38, Mean Corpuscular Volume 89.7, Mean Corpuscular Hemoglobin 29.5, Mean Corpuscular Hemoglobin Concent 32.8, Red Cell Distribution Width 12.3, Neutrophils (%) (Auto) 79.7 H, Lymphocytes (%) (Auto) 6.1 L, Monocytes (%) (Auto) 13.3 H, Eosinophils (%) (Auto) 0.1, Basophils (%) (Auto) 0.2, Neutrophils # (Auto) 10.8 H, Lymphocytes # (Auto) 0.8 L, Monocytes # (Auto) 1.8 H, Eosinophils # (Auto) 0.0, Basophils # (Auto) 0.0, Calcium Level 8.2 L Microbiology Microbiology 02/25/19 Blood Culture, Received Pending 02/25/19 Blood Culture, Received Pending 02/25/19 Gram Stain - Final, Resulted 02/25/19 Body Fluid Culture, Resulted Pending Allergies Coded Allergies: NSAIDS (Non-Steroidal Anti-Inflamma (Verified Allergy, Unknown, 02/25/19) Home Medications Scheduled Amitriptyline HCl (Amitriptyline HCl) 25 Mg Tab, 25 MG PO QHS, (Reported) Amlodipine Besylate (Amlodipine Besylate) 5 Mg Tab, 5 MG PO DAILY, (Reported) Levothyroxine Sodium (Levoxyl) 100 Mcg Tab, 100 MCG PO DAILY, (Reported) Metoprolol Tartrate (Metoprolol Tartrate) 25 Mg Tab, 25 MG PO BID, (Reported) Omeprazole (Omeprazole) 40 Mg Cap, 40 MG PO QHS, (Reported) Paroxetine HCl (Paroxetine HCl) 20 Mg Tab, 20 MG PO DAILY, (Reported) Scheduled PRN Acetaminophen (Acetaminophen) 500 Mg Tab, 1,000 MG PO Q6H PRN for PAIN OR FEVER, (Reported) Albuterol Sulfate (Proair Hfa) 8.5 Gm Hfa.aer.ad, 2 PUFF INH Q4H PRN for SHORTNESS OF BREATH, (Reported) Ondansetron (Ondansetron Odt) 4 Mg Tab, 4 MG PO Q4H PRN for NAUSEA OR VOMITING, (Reported) Tramadol HCl (Tramadol HCl) 50 Mg Tab, 50 MG PO TID PRN for PAIN, (Reported) MANNY ENGLISH MD Feb 25, 2019 15:11
[2019-02-26] MEDS ORDERED: SODIUM CHLORIDE 0.9% INJ 10 ML SYR IV PRN (15:15)
[2019-02-26] MEDS: traMADol 50 MG TAB PO PRN ×2 (16:57→23:12)
[2019-02-26] MEDS: SODIUM CHLORIDE 0.9% INJ 10 ML SYR IV SCH (16:58)
--- NOTE | 2019-02-26 17:30 | REP ---
Procedure: PICC line insertion with Joycelyn The procedure was performed under the direct supervision of Dr. Velez. The risks and benefits of the procedure were explained to the patient and informed consent was obtained. The right basilic vein was localized using ultrasound guidance. The skin was prepped and draped in a sterile fashion. 1% lidocaine was used as a local anesthetic. Using ultrasound guidance the basilic vein was cannulated and a 0.018 guidewire was inserted and advanced to the SVC using fluoroscopic guidance. The needle was removed and a 4.5 Ethiopian dilator and peel-away sheath was inserted over the guide wire. A 4.5 Ethiopian single lumen catheter was cut to length of 36 cm. The dilator was removed and the catheter was inserted over the guide wire with the tip ending in the SVC. The peel-away sheath was removed and the catheter was flushed with heparinized saline as per Hospital protocol. The catheter was affixed to the skin and a sterile dressing was applied. The patient tolerated the procedure well and there were no immediate complications. 0.1 minutes of fluoro time was utilized for this procedure. Reviewed by EMILY Pa 02/26/2019 03:01 P Electronically Signed by Jeffrey Velez MD 02/26/2019 05:21 P
[2019-02-26] MEDS: OMEPRAZOLE 20 MG CAP PO SCH (20:18)
[2019-02-26] MEDS: AMITRIPTYLINE 25 MG TAB PO SCH (20:19)
[2019-02-26] MEDS: PARoxetine 20 MG TAB PO SCH (20:19)
[2019-02-27] MEDS: SODIUM CHLORIDE 0.9% INJ 10 ML SYR IV SCH ×2 (00:27→17:44)
[2019-02-27] MEDS: cefTRIAXone SOD 1 GM in D5W MINI-BAG PLUS 50 ML IV SCH (05:32)
[2019-02-27] MEDS: LEVOTHYROXINE 100MCG TABLET (0.1MG) PO SCH (05:32)
[2019-02-27 06:00] VITALS: BP 114/57
[2019-02-27 06:00] LABS: BASO % 0.1 % (0.0-1.0); HEMATOCRIT 30.5 % (36.0-47.0); HEMOGLOBIN 9.9 g/dl (12.0-15.5); LYMPH % 6.3 % (24.0-44.0); MEAN CORPUSCULAR HEMOGLOBIN 29.5 pg (27.0-33.0); MEAN CORPUSCULAR HGB CONC 32.5 g/dl (32.0-36.5); MEAN CORPUSCULAR VOLUME 90.8 fl (80.0-96.0); MONO # 0.9 10^3/uL (0.0-0.8); MONO % 5.7 % (0.0-5.0); NEUTROPHILS # 13.2 10^3/uL (1.8-7.7); NEUTROPHILS % 87.2 % (36.0-66.0); PLATELET COUNT, AUTOMATED 232 10^3/uL (150-450); RED BLOOD COUNT 3.36 10^6/uL (4.00-5.40); WHITE BLOOD COUNT 15.2 10^3/uL (4.0-10.0)
[2019-02-27 06:16] LABS: BLOOD UREA NITROGEN 9 MG/DL (7-18); CALCIUM LEVEL 8.1 MG/DL (8.8-10.2); CARBON DIOXIDE LEVEL 28 MEQ/L (21-32); CHLORIDE LEVEL 106 MEQ/L (98-107); CREATININE FOR GFR 0.72 MG/DL (0.55-1.30); GLOMERULAR FILTRATION RATE > 60.0 (>45); GLUCOSE, FASTING 98 MG/DL (70-100); POTASSIUM SERUM 3.8 MEQ/L (3.5-5.1); SODIUM LEVEL 139 MEQ/L (136-145)
[2019-02-27] MEDS: MOM 30ML SUSPENSION UDC PO SCH (08:33)
[2019-02-27] MEDS: MIRALAX *UNIT DOSE* 17GM PACKET PO SCH (08:33)
[2019-02-27] MEDS: amLODIPine 5 MG TAB PO SCH (08:33)
[2019-02-27] MEDS: METOPROLOL TART 25 MG TABLET PO SCH ×2 (08:33→20:18)
[2019-02-27] MEDS ORDERED: PREVNAR 13 VACCINE SYRINGE (CPT CODE:90670) IM ONE (09:00)
--- NOTE | 2019-02-27 12:58 | IPNPDOC ---
Text Note Date of Service The patient was seen on 02/27/19. NOTE Subjective: Patient 68-year-old female with a PMHx of HTN, Hypothyroidism, Gastric ulcer s/p partial gastrectomy / Bilroth II anastomosis, Depression and GERD who presented to the ER with complaints of right knee pain. In the ER patient was suspected of having a septic knee. Orthopedic surgery was consulted and joint was aspirated. Hospitalist team were called for evaluation and treatment. Patient was seen and examined at the bedside. Patient reports that her knee pain is doing significantly better. She still reports that it sort denies any fevers or chills. Denies nausea, vomiting, abdominal pain, constipation, diarrhea or discomfort with urination. Objective: Vitals (See below) General: Lying in bed, no acute distress, comfortable, AAOx3 HEENT: NC, AT CVS: RRR, +S1S2 Lungs: Fair air entry b/l, -w/r/r Abdomen: Soft, ND, NT Extremities: - Edema, - Calf tenderness, R knee in dressing and drain with serosanguineous output Assessment and plan: Septic arthritis - s/p right knee arthroscopic irrigation and debridement / synovectomy (02/25/2019) - Patient notes that her pain is doing better - Remains afebrile - Leukocytosis is present; CRP has been improving - Pathology from February 26 reveals mild chronic inflammation - Cultures currently are negative; MRSA screen pending - c/w Ceftriaxone and Vancomycin; if MRSA screen negative - will consider discontinuing Vancomycin - Orthopedic surgery on consult - c/w PT HTN - BP well cotnrolled - c/w Amlodipine and Metoprolol Hypothyroidism - c/w Levothyroxine Depression - c/w Paroxetine and Amitriptyline GERD / Gastric ulcers - c/w Omeprazole DVT prophylaxis - c/w SCDs/PURNIMA Disposition: - Awaiting cultures / MRSA screen - c/w abx - c/w PT VS,Fishbone, I+O VS, Fishbone, I+O Laboratory Tests 02/27/19 05:20 Red Blood Count 3.36 L, Mean Corpuscular Volume 90.8, Mean Corpuscular Hemoglobin 29.5, Mean Corpuscular Hemoglobin Concent 32.5, Red Cell Distribution Width 12.6, Neutrophils (%) (Auto) 87.2 H, Lymphocytes (%) (Auto) 6.3 L, Monocytes (%) (Auto) 5.7 H, Eosinophils (%) (Auto) 0.0, Basophils (%) (Auto) 0.1, Neutrophils # (Auto) 13.2 H, Lymphocytes # (Auto) 1.0 L, Monocytes # (Auto) 0.9 H, Eosinophils # (Auto) 0.0, Basophils # (Auto) 0.0, Calcium Level 8.1 L Vital Signs Date Time Temp Pulse Resp B/P (MAP) Pulse Ox O2 Delivery O2 Flow Rate FiO2 02/27/19 08:33 72 114/57 02/27/19 06:00 97.8 16 97 02/26/19 06:00 2.0 02/25/19 14:47 Room Air I&O- Last 24 Hours up to 6 AM 02/27/19 06:00 Intake Total 2140 ml Output Total 1260 ml Balance 880 ml JASMINA MALONE MD Feb 27, 2019 12:58
[2019-02-27 14:00] VITALS: BP 112/59
[2019-02-27] MEDS: traMADol 50 MG TAB PO PRN ×2 (17:44→23:26)
[2019-02-27] MEDS: VANCOMYCIN HCL 1,000 MG, VIAL MATE ADAPTER 1 EACH in D5W 250 ML IV SCH (17:44)
[2019-02-27] MEDS: PARoxetine 20 MG TAB PO SCH (20:18)
[2019-02-27] MEDS: OMEPRAZOLE 20 MG CAP PO SCH (20:18)
[2019-02-27] MEDS: AMITRIPTYLINE 25 MG TAB PO SCH (20:18)
[2019-02-27 22:00] VITALS: BP 112/55
[2019-02-28] MEDS: cefTRIAXone SOD 1 GM in D5W MINI-BAG PLUS 50 ML IV SCH (04:27)
[2019-02-28] MEDS: LEVOTHYROXINE 100MCG TABLET (0.1MG) PO SCH (05:02)
[2019-02-28] MEDS: VANCOMYCIN HCL 1,000 MG, VIAL MATE ADAPTER 1 EACH in D5W 250 ML IV SCH ×2 (05:02→17:37)
[2019-02-28 06:00] VITALS: BP 140/68
[2019-02-28] MEDS: traMADol 50 MG TAB PO PRN ×3 (06:00→20:01)
[2019-02-28] MEDS: SODIUM CHLORIDE 0.9% INJ 10 ML SYR IV SCH ×2 (06:00→17:37)
[2019-02-28] MEDS: ACETAMINOPHEN TAB 650MG DOSE (2X325MG) PO PRN ×3 (06:00→20:00)
[2019-02-28 06:37] LABS: BASO % 0.2 % (0.0-1.0); EOS % 0.4 % (0.0-3.0); HEMOGLOBIN 9.8 g/dl (12.0-15.5); LYMPH # 1.4 10^3/uL (1.5-4.5); LYMPH % 16.7 % (24.0-44.0); MEAN CORPUSCULAR HEMOGLOBIN 28.7 pg (27.0-33.0); MEAN CORPUSCULAR HGB CONC 31.6 g/dl (32.0-36.5); MEAN CORPUSCULAR VOLUME 90.9 fl (80.0-96.0); MONO # 0.7 10^3/uL (0.0-0.8); MONO % 8.7 % (0.0-5.0); NEUTROPHILS # 6.3 10^3/uL (1.8-7.7); NEUTROPHILS % 73.6 % (36.0-66.0); PLATELET COUNT, AUTOMATED 224 10^3/uL (150-450); RED BLOOD COUNT 3.41 10^6/uL (4.00-5.40); WHITE BLOOD COUNT 8.5 10^3/uL (4.0-10.0)
[2019-02-28 06:51] LABS: BLOOD UREA NITROGEN 6 MG/DL (7-18); C REACTIVE PROTEIN QUANTITATIV 6.17 MG/DL (0.00-0.30); CALCIUM LEVEL 7.5 MG/DL (8.8-10.2); CARBON DIOXIDE LEVEL 26 MEQ/L (21-32); CHLORIDE LEVEL 104 MEQ/L (98-107); GLOMERULAR FILTRATION RATE > 60.0 (>45); GLUCOSE, FASTING 105 MG/DL (70-100); POTASSIUM SERUM 3.5 MEQ/L (3.5-5.1); SODIUM LEVEL 137 MEQ/L (136-145)
--- NOTE | 2019-02-28 07:16 | PHACANCOPD ---
PHARMACY VANCOMYCIN DOSING Pt Demographics Demographics Patient Age:68 , Weight:46.100 , Gender: female Adjusted Body Weight Date: 02/26/19, Adjusted Body Weight: [48.6] Kg-ACTUAL WT Vancomycin Vancomycin indication: SEPTIC ARTHRITIS RT KNEE Vancomycin Target Ranges: 15-20 mcg/ml Vancomycin Load Y/N: No Load Dose Date Time Vancomycin Load Dose: Date: Time: Vancomycin Dose Date: 02/26/19. Current Vancomycin Dose: [1GM Q18H] Intermittent Dosing?: No Labs Micro Microbiology 02/25/19 Blood Culture - Preliminary, Resulted No Growth after 48 hours. All Specime... 02/25/19 Blood Culture - Preliminary, Resulted No Growth after 48 hours. All Specime... 02/25/19 Gram Stain - Final, Complete 02/25/19 Body Fluid Culture - Final, Complete 02/27/19 MRSA Screen, Received Pending 02/25/19 Gram Stain - Final, Complete 02/25/19 Wound Culture - Final, Complete 02/25/19 Anaerobic Culture - Final, Complete 02/25/19 Gram Stain - Final, Complete 02/25/19 Abscess Culture - Final, Complete 02/25/19 Anaerobic Culture - Final, Complete Creatinine Clearance Date:02/26/19. Creatinine Clearance: [44.8].CALCULATED Assessment and Plan Maintaining Current Dose?: Yes Reason for dose change: No Dose Change Pharmacist Note Pharmacist Note 02/28/19: Day #4 empiric vancomycin therapy. Vancomycin trough yesterday resulted at 10.3mcg/ml; therefore, the patients vancomycin regimen was increased from 1g IV Q18H to 1g IV Q12H - aiming for a goal trough of 15-20mcg/ml for the treatment of rt knee septic arthritis. Scr and BUN have remained stable, as has output. All cultures thus far have resulted negative, with an MRSA still pending. A follow-up vancomycin trough level has been scheduled to be drawn tomorrow, 03/01/19, with morning labs. We will continue to monitor and make further dose adjustments if needed. Date: 02/26/19. Pharmacist note:68YOF admitted w/septic arthritis rt knee.SCR=0.89,CRCL=44.8 calculated,allergy=nsaids.Receiving Ceftriaxone 1 gm Q24H plus Vancomycin per Pharmacy consult. Vancomycin 1 Gram administered in ED@18;26.Will continue at 1 gram IV [id number] to begin 02/26@0600.First trough is scheduled 02/26@2300(prior to 3rd dose)-will continue to follow. [facility] Feb 28, 2019 07:16
[2019-02-28] MEDS: MIRALAX *UNIT DOSE* 17GM PACKET PO SCH (09:00)
[2019-02-28] MEDS: MOM 30ML SUSPENSION UDC PO SCH (09:00)
[2019-02-28] MEDS: amLODIPine 5 MG TAB PO SCH (09:17)
[2019-02-28] MEDS: METOPROLOL TART 25 MG TABLET PO SCH ×2 (09:18→20:00)
--- NOTE | 2019-02-28 10:49 | IPNPDOC ---
Text Note Date of Service The patient was seen on 02/28/19. NOTE Subjective: Patient 68-year-old female with a PMHx of HTN, Hypothyroidism, Gastric ulcer s/p partial gastrectomy / Bilroth II anastomosis, Depression and GERD who presented to the ER with complaints of right knee pain. In the ER patient was suspected of having a septic knee. Orthopedic surgery was consulted and joint was aspirated. Hospitalist team were called for evaluation and treatment. Patient was seen and examined at the bedside. Currently, patient is no new complaints. She reports that her right knee is still slightly tender. . She denies lightheadedness, dizziness, chest pain, shortness of breath, palpitations, nausea, vomiting, abdominal pain, consultation, diarrhea or discomfort with urination. Objective: Vitals (See below) General: Lying in bed, no acute distress, comfortable, AAOx3 HEENT: NC, AT CVS: RRR, +S1S2 Lungs: Fair air entry b/l, auscultation is without any wheezing, rales or rhonchi Abdomen: Soft, nondistended, without tenderness Extremities: No evidence of lower extremity edema, - Calf tenderness, R knee dressing has been removed; drain has been removed Assessment and plan: Septic arthritis - s/p right knee arthroscopic irrigation and debridement / synovectomy (02/25/2019) - Patient notes that her pain is doing better - Remains afebrile - s/p Leukocytosis; CRP continues to down trend - Pathology from February 26 reveals mild chronic inflammation - Cultures currently are negative; MRSA screen pending - c/w Ceftriaxone and Vancomycin; if MRSA screen negative - will consider discontinuing Vancomycin - Lyme IgG/IgM pending, Lyme PCR of synovial fluid pending - Orthopedic surgery on consult - c/w PT - Anticipated the patient will require outpatient ceftriaxone for completion of at least 2 weeks minimum - Will have outpatient follow-up with Dr. Teague of infectious disease HTN - BP well controlled - c/w Amlodipine and Metoprolol Hypothyroidism - c/w Levothyroxine Depression - c/w Paroxetine and Amitriptyline GERD / Gastric ulcers - c/w Omeprazole DVT prophylaxis - c/w SCDs/PURNIMA Disposition: - Awaiting MRSA screen - Awaiting Lyme serology / synovial fluid PCR - c/w current antibiotics - c/w PT VS,Fishbone, I+O VS, Fishbone, I+O Laboratory Tests 02/28/19 06:02 Red Blood Count 3.41 L, Mean Corpuscular Volume 90.9, Mean Corpuscular Hemoglobin 28.7, Mean Corpuscular Hemoglobin Concent 31.6 L, Red Cell Distribution Width 12.6, Neutrophils (%) (Auto) 73.6 H, Lymphocytes (%) (Auto) 16.7 L, Monocytes (%) (Auto) 8.7 H, Eosinophils (%) (Auto) 0.4, Basophils (%) (Auto) 0.2, Neutrophils # (Auto) 6.3, Lymphocytes # (Auto) 1.4 L, Monocytes # (Auto) 0.7, Eosinophils # (Auto) 0.0, Basophils # (Auto) 0.0, Calcium Level 7.5 L Vital Signs Date Time Temp Pulse Resp B/P (MAP) Pulse Ox O2 Delivery O2 Flow Rate FiO2 02/28/19 09:18 74 140/68 02/28/19 06:30 16 02/28/19 06:00 98.2 94 02/26/19 06:00 2.0 02/25/19 14:47 Room Air I&O- Last 24 Hours up to 6 AM 02/28/19 06:00 Intake Total 1690 ml Output Total 600 ml Balance 1090 ml JASMINA MALONE MD Feb 28, 2019 10:49
[2019-02-28 14:00] VITALS: BP 106/55
[2019-02-28] MEDS: OMEPRAZOLE 20 MG CAP PO SCH (19:58)
[2019-02-28] MEDS: AMITRIPTYLINE 25 MG TAB PO SCH (19:59)
[2019-02-28] MEDS: PARoxetine 20 MG TAB PO SCH (19:59)
[2019-02-28 22:00] VITALS: BP 138/63
[2019-03-01] MEDS: cefTRIAXone SOD 1 GM in D5W MINI-BAG PLUS 50 ML IV SCH (04:14)
[2019-03-01] MEDS: ACETAMINOPHEN TAB 650MG DOSE (2X325MG) PO PRN (05:25)
[2019-03-01] MEDS: SODIUM CHLORIDE 0.9% INJ 10 ML SYR IV SCH (05:26)
[2019-03-01] MEDS: traMADol 50 MG TAB PO PRN ×2 (05:26→11:44)
[2019-03-01] MEDS: LEVOTHYROXINE 100MCG TABLET (0.1MG) PO SCH (05:26)
[2019-03-01] MEDS: VANCOMYCIN HCL 1,000 MG, VIAL MATE ADAPTER 1 EACH in D5W 250 ML IV SCH (05:27)
[2019-03-01 06:00] VITALS: BP 117/61
[2019-03-01 06:02] LABS: BASO % 0.4 % (0.0-1.0); EOS # 0.1 10^3/uL (0.0-0.50); EOS % 1.5 % (0.0-3.0); HEMATOCRIT 31.2 % (36.0-47.0); HEMOGLOBIN 10.3 g/dl (12.0-15.5); LYMPH # 1.2 10^3/uL (1.5-4.5); MEAN CORPUSCULAR HEMOGLOBIN 29.7 pg (27.0-33.0); MEAN CORPUSCULAR VOLUME 89.9 fl (80.0-96.0); MONO # 0.7 10^3/uL (0.0-0.8); MONO % 9.1 % (0.0-5.0); NEUTROPHILS # 5.5 10^3/uL (1.8-7.7); NEUTROPHILS % 72.3 % (36.0-66.0); PLATELET COUNT, AUTOMATED 223 10^3/uL (150-450); RED BLOOD COUNT 3.47 10^6/uL (4.00-5.40); WHITE BLOOD COUNT 7.6 10^3/uL (4.0-10.0)
[2019-03-01 06:32] LABS: BLOOD UREA NITROGEN 5 MG/DL (7-18); CALCIUM LEVEL 7.7 MG/DL (8.8-10.2); CARBON DIOXIDE LEVEL 32 MEQ/L (21-32); CHLORIDE LEVEL 101 MEQ/L (98-107); CREATININE FOR GFR 0.64 MG/DL (0.55-1.30); GLOMERULAR FILTRATION RATE > 60.0 (>45); GLUCOSE, FASTING 126 MG/DL (70-100); POTASSIUM SERUM 3.2 MEQ/L (3.5-5.1); SODIUM LEVEL 137 MEQ/L (136-145); VANCOMYCIN LEVEL TROUGH 31.4 UG/ML (10.0-20.0)
[2019-03-01] MEDS ORDERED: TRAM50TA2 PO (07:28)
[2019-03-01] MEDS ORDERED: CEFT1INJ5 IV (07:55)
[2019-03-01 09:15] VITALS: BP 125/65
[2019-03-01 09:39] VITALS: BP 125/65
[2019-03-01] MEDS: amLODIPine 5 MG TAB PO SCH (09:39)
[2019-03-01] MEDS: METOPROLOL TART 25 MG TABLET PO SCH (09:39)
[2019-03-01] MEDS: MOM 30ML SUSPENSION UDC PO SCH (09:40)
[2019-03-01] MEDS: MIRALAX *UNIT DOSE* 17GM PACKET PO SCH (09:40)
[2019-03-01] MEDS ORDERED: POTASSIUM CHLORIDE 10 MEQ SR TABLET PO ONE (10:45)
--- NOTE | 2019-03-01 11:03 | IPNPDOC ---
Text Note Date of Service The patient was seen on 03/01/19. NOTE Subjective: Patient 68-year-old female with a PMHx of HTN, Hypothyroidism, Gastric ulcer s/p partial gastrectomy / Bilroth II anastomosis, Depression and GERD who presented to the ER with complaints of right knee pain. In the ER patient was suspected of having a septic knee. Orthopedic surgery was consulted and joint was aspirated. Hospitalist team were called for evaluation and treatment. Patient was seen and examined at the bedside. Patient reports that her knee pain is resolving. She will be working with physical therapy. She denies any nausea, vomiting, abdominal pain, constipation, diarrhea or discomfort with urination. Objective: Vitals (See below) General: Lying in bed, no acute distress, comfortable, AAOx3 HEENT: NC, AT CVS: RRR, +S1S2 Lungs: Fair air entry b/l, no wheezing / rales / rhonchi on auscultation Abdomen: Soft, no distension or tenderness Extremities: No evidence of lower extremity edema, - Calf tenderness, R knee dressing has been removed; s/p drain Assessment and plan: Septic arthritis - s/p right knee arthroscopic irrigation and debridement / synovectomy (02/25/2019) - Patient notes that her pain is doing better - Remains afebrile - s/p Leukocytosis; CRP has fluctuated - Pathology from February 26 reveals mild chronic inflammation - Cultures currently are negative; MRSA screen negative - Lyme IgG/IgM pending, Lyme PCR of synovial fluid pending - Orthopedic surgery on consult; will c/w physical therapy - c/w Ceftriaxone; s/p Vancomycin; will likely c/w Ceftriaxone as an outpatient with home infusions - Will have outpatient follow-up with Dr. Teague of infectious disease and orthopedic surgery HTN - BP well controlled - c/w Amlodipine and Metoprolol Hypothyroidism - c/w Levothyroxine Depression - c/w Paroxetine and Amitriptyline GERD / Gastric ulcers - c/w Omeprazole DVT prophylaxis - c/w SCDs/PURNIMA Disposition: - Awaiting Lyme serology / synovial fluid PCR - c/w Ceftriaxone alone - will provide as outpatient - c/w PT VS,Fishbone, I+O VS, Fishbone, I+O Laboratory Tests 03/01/19 05:51 Red Blood Count 3.47 L, Mean Corpuscular Volume 89.9, Mean Corpuscular Hemo globin 29.7, Mean Corpuscular Hemoglobin Concent 33.0, Red Cell Distribution Width 12.4, Neutrophils (%) (Auto) 72.3 H, Lymphocytes (%) (Auto) 16.0 L, Monocytes (%) (Auto) 9.1 H, Eosinophils (%) (Auto) 1.5, Basophils (%) (Auto) 0.4, Neutrophils # (Auto) 5.5, Lymphocytes # (Auto) 1.2 L, Monocytes # (Auto) 0.7, Eosinophils # (Auto) 0.1, Basophils # (Auto) 0.0, Calcium Level 7.7 L Vital Signs Date Time Temp Pulse Resp B/P (MAP) Pulse Ox O2 Delivery O2 Flow Rate FiO2 03/01/19 09:39 72 125/65 03/01/19 09:15 99.1 18 95 02/26/19 06:00 2.0 02/25/19 14:47 Room Air I&O- Last 24 Hours up to 6 AM 03/01/19 06:00 Intake Total 1320 ml Output Total 750 ml Balance 570 ml JASMINA MALONE MD Mar 01, 2019 11:03
--- NOTE | 2019-03-01 13:13 | DS.PDOC ---
Discharge Summary General Date of Admission Feb 25, 2019 at 14:50 Date of Discharge 03/01/2019 Discharge Summary PROCEDURES PERFORMED DURING STAY: Right knee arthroscopic irrigation and debridement / synovectomy on 02/25/[address] Cleveland ADMITTING DIAGNOSES / DISCHARGE DIAGNOSES: Septic arthritis - s/p right knee arthroscopic irrigation and debridement / synovectomy (02/25/2019) HTN Hypothyroidism Depression GERD / Gastric ulcers DVT prophylaxis COMPLICATIONS/CHIEF COMPLAINT: Right knee pain HISTORY OF PRESENT ILLNESS: Patient 68-year-old female with a PMHx of HTN, Hypothyroidism, Gastric ulcer s/p partial gastrectomy / Bilroth II anastomosis, Depression and GERD who presented to the ER with complaints of right knee pain. In the ER patient was suspected of having a septic knee. Orthopedic surgery was consulted and joint was aspirated. Hospitalist team were called for evaluation and treatment. HOSPITAL COURSE: Septic arthritis - s/p right knee arthroscopic irrigation and debridement / synovectomy (02/25/2019) - Clinically has had significant improvement in pain - Remains afebrile - s/p Leukocytosis; CRP has fluctuated - Pathology from February 26 reveals mild chronic inflammation - Cultures currently are negative; MRSA screen negative - Lyme IgG/IgM pending, Lyme PCR of synovial fluid pending - Orthopedic surgery on consult; will c/w physical therapy - c/w Ceftriaxone; s/p Vancomycin; will c/w Ceftriaxone as an outpatient with home infusions - has been established - Will have outpatient follow-up with Dr. Teague of infectious disease and orthopedic surgery HTN - BP well controlled - c/w Amlodipine and Metoprolol Hypothyroidism - c/w Levothyroxine Depression - c/w Paroxetine and Amitriptyline GERD / Gastric ulcers - c/w Omeprazole DVT prophylaxis - c/w SCDs/PURNIMA DISCHARGE MEDICATIONS: Please see below. ALLERGIES: Please see below. PHYSICAL EXAMINATION ON DISCHARGE: Vitals (See below) General: Lying in bed, no acute distress, comfortable, AAOx3 HEENT: NC, AT CVS: RRR, +S1S2 Lungs: Fair air entry b/l, no wheezing / rales / rhonchi on auscultation Abdomen: Soft, no distension or tenderness Extremities: No evidence of lower extremity edema, - Calf tenderness, R knee dressing has been removed; s/p drain LABORATORY DATA: Please see below. ACTIVITY: [As tolerated]. DISCHARGE PLAN: Follow up with Dr. Srinivas Rodriguez, Dr. Everett and Dr. Teague within 7 days Remain compliant with treatment plan and medications Return to the ER if you experience any problems DISPOSITION: Home with services DISCHARGE CONDITION: [Stable]. TIME SPENT ON DISCHARGE: Greater than [35] minutes. Vital Signs/I&Os Vital Signs Date Time Temp Pulse Resp B/P (MAP) Pulse Ox O2 Delivery O2 Flow Rate FiO2 03/01/19 11:44 16 03/01/19 09:39 72 125/65 03/01/19 09:15 99.1 95 02/26/19 06:00 2.0 02/25/19 14:47 Room Air I&O- Last 24 Hours up to 6 AM 03/01/19 06:00 Intake Total 1320 ml Output Total 750 ml Balance 570 ml Laboratory Data Labs 24H Laboratory Tests 2 03/01/19 05:51: Immature Granulocyte % (Auto) 0.7, White Blood Count 7.6, Red Blood Count 3.47L, Hemoglobin 10.3L, Hematocrit 31.2L, Mean Corpuscular Volume 89.9, Mean Corpuscular Hemoglobin 29.7, Mean Corpuscular Hemoglobin Concent 33.0, Red Cell Distribution Width 12.4, Platelet Count 223, Neutrophils (%) (Auto) 72.3H, L ymphocytes (%) (Auto) 16.0L, Monocytes (%) (Auto) 9.1H, Eosinophils (%) (Auto) 1.5, Basophils (%) (Auto) 0.4, Neutrophils # (Auto) 5.5, Lymphocytes # (Auto) 1.2L, Monocytes # (Auto) 0.7, Eosinophils # (Auto) 0.1, Basophils # (Auto) 0.0, Nucleated Red Blood Cells % (auto) 0.0, Anion Gap 4L, Glomerular Filtration Rate > 60.0, Blood Urea Nitrogen 5L, Creatinine 0.64, Sodium Level 137, Potassium Level 3.2L, Chloride Level 101, Carbon Dioxide Level 32, Calcium Level 7.7L, C- Reactive Protein, Quantitative 11.40H, Vancomycin Level Trough 31.4*H CBC/BMP Laboratory Tests 03/01/19 05:51 Red Blood Count 3.47 L, Mean Corpuscular Volume 89.9, Mean Corpuscular Hemoglobin 29.7, Mean Corpuscular Hemoglobin Concent 33.0, Red Cell Distribution Width 12.4, Neutrophils (%) (Auto) 72.3 H, Lymphocytes (%) (Auto) 16.0 L, Monocytes (%) (Auto) 9.1 H, Eosinophils (%) (Auto) 1.5, Basophils (%) (Auto) 0.4, Neutrophils # (Auto) 5.5, Lymphocytes # (Auto) 1.2 L, Monocytes # (Auto) 0.7, Eosinophils # (Auto) 0.1, Basophils # (Auto) 0.0, Calcium Level 7.7 L Microbiology Microbiology 02/25/19 Blood Culture - Preliminary, Resulted No Growth after 72 hours. All specime... 02/25/19 Blood Culture - Preliminary, Resulted No Growth after 72 hours. All specime... 02/25/19 Gram Stain - Final, Complete 02/25/19 Body Fluid Culture - Final, Complete 02/27/19 MRSA Screen - Final, Complete 02/25/19 Gram Stain - Final, Complete 02/25/19 Wound Culture - Final, Complete 02/25/19 Anaerobic Culture - Final, Complete 02/25/19 Gram Stain - Final, Complete 02/25/19 Abscess Culture - Final, Complete 02/25/19 Anaerobic Culture - Final, Complete Discharge Medications Scheduled Amitriptyline HCl (Amitriptyline HCl) 25 Mg Tab, 25 MG PO QHS, (Reported) Amlodipine Besylate (Amlodipine Besylate) 5 Mg Tab, 5 MG PO DAILY, (Reported) Ceftriaxone Sodium (Ceftriaxone) 1 Gm Vial, 1 GRAM IV DAILY Levothyroxine Sodium (Levoxyl) 100 Mcg Tab, 100 MCG PO DAILY, (Reported) Metoprolol Tartrate (Metoprolol Tartrate) 25 Mg Tab, 25 MG PO BID, (Reported) Omeprazole (Omeprazole) 40 Mg Cap, 40 MG PO QHS, (Reported) Paroxetine HCl (Paroxetine HCl) 20 Mg Tab, 20 MG PO DAILY, (Reported) Scheduled PRN Acetaminophen (Acetaminophen) 500 Mg Tab, 1,000 MG PO Q6H PRN for PAIN OR FEVER, (Reported) Albuterol Sulfate (Proair Hfa) 8.5 Gm Hfa.aer.ad, 2 PUFF INH Q4H PRN for SHORTNESS OF BREATH, (Reported) Ondansetron (Ondansetron Odt) 4 Mg Tab, 4 MG PO Q4H PRN for NAUSEA OR VOMITING, (Reported) Tramadol HCl (Tramadol HCl) 50 Mg Tab, 50 MG PO TID PRN for PAIN, (Reported) Tramadol HCl (Tramadol HCl) 50 Mg Tablet, 1-2 TAB PO Q4H PRN for PAIN Allergies Coded Allergies: NSAIDS (Non-Steroidal Anti-Inflamma (Verified Allergy, Unknown, 02/25/19) JASMINA MALONE MD Mar 01, 2019 13:13
[2019-03-01 14:00] VITALS: BP 133/62
[2019-03-02 14:26] LABS: Lyme Disease IgG Ab 18 kDa Ban Absent (.); Lyme Disease IgG Ab 23 kDa Ban Absent (.); Lyme Disease IgG Ab 28 kDa Ban Absent (.); Lyme Disease IgG Ab 30 kDa Ban Absent (.); Lyme Disease IgG Ab 39 kDa Ban Absent (.); Lyme Disease IgG Ab 41 kDa Ban Absent (.); Lyme Disease IgG Ab 45 kDa Ban Absent (.); Lyme Disease IgG Ab 58 kDa Ban Absent (.); Lyme Disease IgG Ab 66 kDa Ban Absent (.); Lyme Disease IgG Ab 93 kDa Ban Absent (.); Lyme Disease IgG West Blot Int Negative (.); Lyme Disease IgG/IgM Antibodie 1.45 ISR (0.00-0.90); Lyme Disease IgM Ab 23 kDa Ban Present (.); Lyme Disease IgM Ab 39 kDa Ban Absent (.); Lyme Disease IgM Ab 41 kDa Ban Present (.); Lyme Disease IgM West Blot Int Positive (.)
[2019-03-06 14:13] LABS: LYME PCR FOR BODY FLUID Negative (Negative)
== END 2019-03-01 15:40 | disposition home health service (06) | DRG 489 ==
LOC: M ED 09:23 → EDBD 09:23 → M ED INP 14:50 → M MS5PR 19:30
PROVIDERS: ADMIT Internal Medicine; ATTEND Internal Medicine
PROC: 0S9C3ZX Drainage of Right Knee Joint, Percutaneous Approach, Diagnostic (ICD-10-PCS; 2019-02-25)
PROC: 0SBC4ZZ Excision of Right Knee Joint, Percutaneous Endoscopic Approach (ICD-10-PCS; principal; 2019-02-25 14:45)
DX: M00.9 Pyogenic arthritis, unspecified (principal); E89.0 Postprocedural hypothyroidism; K21.9 Gastro-esophageal reflux disease without esophagitis; F32.9 Major depressive disorder, single episode, unspecified; I10 Essential (primary) hypertension; Z79.899 Other long term (current) drug therapy; Z98.0 Intestinal bypass and anastomosis status; Z90.49 Acquired absence of other specified parts of digestive tract; Z88.6 Allergy status to analgesic agent

== ENCOUNTER → 2019-03-05 | Outpatient (REF) | payer MEDICARE ==
[~2019-03-05] MED LIST changes: +CEFT1INJ5 IV; -PARoxetine 20 MG TAB PO SCH
== END ==
LOC: M LAB REF 16:35
PROVIDERS: ATTEND Orthopaedic Surgery
DX: M00.9 Pyogenic arthritis, unspecified (principal)

== ENCOUNTER → 2019-03-13 | Outpatient (REF) | payer MEDICARE | LOC: M SHH 14:27 | PROVIDERS: ATTEND Internal Medicine Infectious Disease | DX: M00.861 Arthritis due to other bacteria, right knee (principal); I10 Essential (primary) hypertension; F32.9 Major depressive disorder, single episode, unspecified; E03.2 Hypothyroidism due to medicaments and other exogenous substances; T50.8X5D Adverse effect of diagnostic agents, subsequent encounter; K21.9 Gastro-esophageal reflux disease without esophagitis; F17.210 Nicotine dependence, cigarettes, uncomplicated; Z79.2 Long term (current) use of antibiotics; Z45.2 Encounter for adjustment and management of vascular access device; Z79.891 Long term (current) use of opiate analgesic; Z51.81 Encounter for therapeutic drug level monitoring; Z98.84 Bariatric surgery status | CPT/HCPCS: 85652; 86140; G0463 ==

== ENCOUNTER → 2019-03-20 | Outpatient (REF) | payer MEDICARE | LOC: M SHH 14:45 | PROVIDERS: ATTEND Internal Medicine Infectious Disease | DX: M00.9 Pyogenic arthritis, unspecified (principal) ==

== ENCOUNTER → 2019-04-03 | Outpatient (CLI) | payer MEDICARE ==
[2019-04-03 16:31] LABS: HEMATOCRIT 41.2 % (36.0-47.0); HEMOGLOBIN 12.9 g/dl (12.0-15.5); MEAN CORPUSCULAR HGB CONC 31.3 g/dl (32.0-36.5); MEAN CORPUSCULAR VOLUME 92.6 fl (80.0-96.0); PLATELET COUNT, AUTOMATED 300 10^3/uL (150-450); RED BLOOD COUNT 4.45 10^6/uL (4.00-5.40)
[2019-04-03 16:56] LABS: ERYTHROCYTE SEDIMENTATION RATE 20 mm/hr (0-30)
== END ==
LOC: M WUC 13:29
PROVIDERS: ATTEND Internal Medicine Infectious Disease
DX: M00.9 Pyogenic arthritis, unspecified (principal)

== ENCOUNTER 2019-05-07 08:55 | Emergency (ER) | payer MEDICARE ==
[~2019-05-07] VITALS: Ht 152.4 cm; Wt 107.0 kg
[~2019-05-07 08:55] MED LIST changes: -OMEP40CA2 PO; +OMEP40CA97 PO
[2019-05-07] MEDS ORDERED: CYCL5TAB PO (09:07)
[2019-05-07] MEDS ORDERED: NS 1,000 ML IV SCH (09:34)
[2019-05-07] MEDS ORDERED: PROMETHAZINE INJ 25 MG/ML VIAL (J2550) IV ONE (09:45)
[2019-05-07 09:49] LABS: BASO % 0.3 % (0.0-1.0); EOS # 0.1 10^3/uL (0.0-0.50); EOS % 0.6 % (0.0-3.0); HEMATOCRIT 41.3 % (36.0-47.0); HEMOGLOBIN 13.4 g/dl (12.0-15.5); LYMPH # 0.8 10^3/uL (1.5-4.5); LYMPH % 6.5 % (24.0-44.0); MEAN CORPUSCULAR HEMOGLOBIN 27.6 pg (27.0-33.0); MEAN CORPUSCULAR HGB CONC 32.4 g/dl (32.0-36.5); MEAN CORPUSCULAR VOLUME 85.2 fl (80.0-96.0); MONO # 0.7 10^3/uL (0.0-0.8); MONO % 5.9 % (0.0-5.0); NEUTROPHILS # 9.9 10^3/uL (1.8-7.7); NEUTROPHILS % 86.1 % (36.0-66.0); PLATELET COUNT, AUTOMATED 313 10^3/uL (150-450); RED BLOOD COUNT 4.85 10^6/uL (4.00-5.40); WHITE BLOOD COUNT 11.5 10^3/uL (4.0-10.0)
[2019-05-07 10:07] LABS: ALBUMIN 3.2 GM/DL (3.2-5.2); ALT/SGPT 13 U/L (12-78); BILIRUBIN,DIRECT 0.2 MG/DL (0.0-0.2); BILIRUBIN,TOTAL 0.5 MG/DL (0.2-1.0); BLOOD UREA NITROGEN 8 MG/DL (7-18); CALCIUM LEVEL 9.6 MG/DL (8.8-10.2); CARBON DIOXIDE LEVEL 28 MEQ/L (21-32); CHLORIDE LEVEL 102 MEQ/L (98-107); CPK CREATINE PHOSPHOKINASE 79 U/L (26-192); GLOMERULAR FILTRATION RATE > 60.0 (>45); GLUCOSE, FASTING 137 MG/DL (70-100); LIPASE 83 U/L (73-393); MB/CK RELATIVE INDEX 5.06 (< OR =4); POTASSIUM SERUM 3.1 MEQ/L (3.5-5.1); SODIUM LEVEL 137 MEQ/L (136-145); TOTAL PROTEIN 8.2 GM/DL (6.4-8.2); TROPONIN I < 0.02 NG/ML (< 0.10)
[2019-05-07] MEDS ORDERED: POTASSIUM CHLORIDE 10 MEQ SR TABLET PO ONE (10:15)
--- NOTE | 2019-05-07 10:21 | REP ---
Clinical: Vomiting and constipation. Technique: Single supine view of the abdomen and pelvis. Findings: Bowel gas pattern is nonspecific. No organomegaly. No abnormal calcifications. Surgical changes are appreciated. Skeletal structures demonstrate age-related osteopenia and degenerative change. Right hip replacement. Impression: Nonspecific abdominal radiograph. Electronically Signed by Dejan Ledbetter MD 05/07/2019 10:12 A
[2019-05-07 12:00] VITALS: BP 131/74
--- NOTE | 2019-05-07 21:56 | ECGEPIP ---
[facility] - ED Test Date: 2019-05-07 Pat Name: JEFF DEL ANGEL Department: Room: - Gender: Female Prevention Coordinator: : 1950 Requested By: RICHA Cerda Order Number: [id number] Reading MD: Marshal Hamilton Measurements Intervals [place] Rate: 98 P: 76 [place]: 143 QRS: 46 QRSD: 81 T: 50 QT: 352 QTc: 450 Interpretive Statements SINUS RHYTHM NONSPECIFIC T-WAVE ABNORMALITY BASELINE ARTIFACT AFFECTS INTERPRETATION SIMILAR TO 02/25/19 Electronically Signed on 05-07-2019 21:56:46 EDT by Marshal Hamilton
[2019-06-21] MEDS ORDERED: PROM25TA12 PO (10:58)
[2019-10-12] MEDS ORDERED: BREO1INH INH (08:46)
[2019-11-17] MEDS ORDERED: PARO40TA3 PO (14:02)
[2019-11-22] MEDS ORDERED: PERCOCET PO (10:39)
[2019-11-22] MEDS ORDERED: XARE10TA PO (10:39)
== END 2019-05-07 12:16 | disposition home or self-care (01) ==
LOC: EDBD 08:55 → M ED 08:55
DX: R11.2 Nausea with vomiting, unspecified (principal); I10 Essential (primary) hypertension; E03.9 Hypothyroidism, unspecified; F32.9 Major depressive disorder, single episode, unspecified; K21.9 Gastro-esophageal reflux disease without esophagitis; K27.9 Peptic ulcer, site unspecified, unspecified as acute or chronic, without hemorrhage or perforation

== ENCOUNTER 2019-05-07 22:14 | Inpatient (IN) | payer MEDICARE ==
[~2019-05-07] VITALS: Ht 152.4 cm; Wt 48.6 kg
[~2019-05-07 22:14] MED LIST changes: +CYCL5TAB PO; +OMEP40CA2 PO; -OMEP40CA97 PO
[2019-05-07] MEDS ORDERED: NS 1,000 ML IV ONE (22:45)
[2019-05-07] MEDS ORDERED: PROMETHAZINE INJ 25 MG/ML VIAL (J2550) IV ONE (22:45)
[2019-05-07] MEDS ORDERED: ISOVUE-370 76% 100ML VIAL (Q9967) As Ordered ONE (23:18)
[2019-05-07 23:29] LABS: BASO % 0.3 % (0.0-1.0); EOS # 0.1 10^3/uL (0.0-0.50); EOS % 0.8 % (0.0-3.0); HEMATOCRIT 41.5 % (36.0-47.0); HEMOGLOBIN 13.6 g/dl (12.0-15.5); LYMPH % 9.4 % (24.0-44.0); MEAN CORPUSCULAR HEMOGLOBIN 28.6 pg (27.0-33.0); MEAN CORPUSCULAR HGB CONC 32.8 g/dl (32.0-36.5); MEAN CORPUSCULAR VOLUME 87.4 fl (80.0-96.0); MONO # 0.6 10^3/uL (0.0-0.8); NEUTROPHILS # 8.7 10^3/uL (1.8-7.7); PLATELET COUNT, AUTOMATED 345 10^3/uL (150-450); RED BLOOD COUNT 4.75 10^6/uL (4.00-5.40); WHITE BLOOD COUNT 10.5 10^3/uL (4.0-10.0)
[2019-05-07 23:59] LABS: ALBUMIN 3.3 GM/DL (3.2-5.2); ALT/SGPT 16 U/L (12-78); BILIRUBIN,DIRECT < 0.1 MG/DL (0.0-0.2); BILIRUBIN,TOTAL 0.4 MG/DL (0.2-1.0); CK-MB VALUE MASS 5.7 NG/ML (<3.6); CPK CREATINE PHOSPHOKINASE 107 U/L (26-192); LIPASE 97 U/L (73-393); MB/CK RELATIVE INDEX 5.33 (< OR =4); TOTAL PROTEIN 7.3 GM/DL (6.4-8.2); TROPONIN I < 0.02 NG/ML (< 0.10)
[2019-05-08] VITALS (10 sets, daily range): BP systolic 119–162; BP diastolic 64–96
--- NOTE | 2019-05-08 01:03 | REPVR ---
EXAM: CT Abdomen and Pelvis With Contrast EXAM DATE/TIME: 05/07/2019 10:34 PM CLINICAL HISTORY: 68 years old, female; Intractable vomiting TECHNIQUE: Imaging protocol: Axial computed tomography images of the abdomen and pelvis with intravenous contrast. Coronal and sagittal reformatted images were created and reviewed. Radiation optimization: All CT scans at this facility use at least one of these dose optimization techniques: automated exposure control; mA and/or kV adjustment per patient size (includes targeted exams where dose is matched to clinical indication); or iterative reconstruction. Contrast material: ISO; Contrast volume: 100 ml; Contrast route: AC; COMPARISON: CT ABD PELVIS WITH CONTRAST 10/21/2016 10:22 AM FINDINGS: Lungs: There is scarring in the right middle lobe. Heart: No cardiomegaly. No pericardial effusion. Mediastinum: There is a small sliding hiatal hernia. Liver: The attenuation of the liver is more than 40 Hounsfield units lower in attenuation compared to the spleen, which is compatible with fatty liver infiltration. There is a 5 mm cyst in the superior medial segment 4A of the left hepatic lobe and an 11 mm cyst in the posterior inferior segment 6 of the right hepatic lobe, which are unchanged compared to the prior CT scan on 10/21/2016. The liver is otherwise unremarkable. The contour of the liver is smooth. No hepatomegaly is noted. Gallbladder and bile ducts: The gallbladder is distended. There is some high attenuation material layering in the dependent portion of the body of the gallbladder, which may represent calculi and/or sludge (image 49 of the axial series 201 and image 30 of the sagittal series 203). No gallbladder wall thickening, pericholecystic fluid, or pericholecystic inflammatory changes are identified. No dilation of the intrahepatic or extrahepatic bile ducts is noted. Pancreas: Normal. No ductal dilation. Spleen: Normal. No splenomegaly. Adrenals: Normal. No mass. Kidneys and ureters: There is bilateral renal cortical scarring. There are several cysts in the left kidney measuring up to 2 cm with simple characteristics, which are fairly similar in appearance compared to the prior CT scan on 10/21/2016 and for which follow-up is not necessary. No solid renal mass is noted. No calculi are seen in the kidneys or ureters. There is no hydronephrosis or hydroureter. Stomach and bowel: Postoperative changes are noted from a Chacho-en-Y gastric bypass surgery. There is chronic dilation of the proximal jejunum just distal to the anastomotic site, which is similar in appearance compared to the prior CT scan on 10/21/2016. No other dilated loops of bowel are noted. There is sigmoid diverticulosis without evidence for diverticulitis. There is no evidence for colitis, pneumatosis intestinalis, intussusception, volvulus, or perforated viscus. Appendix: Normal. No evidence for appendicitis. Intraperitoneal space: Unremarkable. No free air. No fluid collection. Vasculature: There are moderate atherosclerotic calcifications. The abdominal aorta is patent, normal in caliber, and there is no dissection. The iliac arteries, common femoral arteries, renal arteries, celiac artery, superior mesenteric artery, and inferior mesenteric artery are patent. Lymph nodes: Normal. No enlarged lymph nodes. Bladder: Unremarkable. No calculi are noted in the bladder. Reproductive: There is a 2 cm x 1.8 cm x 3.6 cm cystic lesion in the left ovary with septations, which is similar in size compared to the prior CT scan on 10/21/2016. No calcifications or fatty components are seen in this region. The right ovary is unremarkable. The uterus is anteverted. Bones/joints: Right hip arthroplasty hardware was partially imaged. The imaged bony structures are intact. There is no suspicious osteolytic or osteoblastic lesion. There are degenerative changes in the lumbar spine. Soft tissues: Unremarkable. IMPRESSION: 1. Markedly distended gallbladder with some high attenuation material layering in the dependent portion of the body of the gallbladder, which may represent calculi and/or sludge. 2. 2 cm x 1.8 cm x 3.6 cm cystic lesion in the left ovary with septations, which is similar in size compared to the prior CT scan on 10/21/2016. 3. Sigmoid diverticulosis without evidence for diverticulitis. 4. Fatty liver. Electronically signed by: Vinny Trevino On 05/08/2019 01:03:09 AM
[2019-05-08] MEDS ORDERED: PIPERACILLIN/TAZOBACTAM SOD 3.375 GM in D5W MINI-BAG PLUS 50 ML IV ONE (01:30)
[2019-05-08] MEDS ORDERED: ONDANSETRON 4MG/2ML VIAL (J2405) IV PRN (02:00)
--- NOTE | 2019-05-08 02:10 | HPEPDOC ---
General Date of Admission 05/08/2019 Date of Service: May 08, 2019 Attending Physician: LISSETH BARTLETT MD Chief Complaint The patient is a 68-year-old female admitted with a reason for visit of Elizabet moreno. History of Present Illness Patient is a 68-year-old female, past medical history significant for recurrent gastric ulcer status post gastric bypass surgery, cachexia, fatty liver disease, diverticulosis, presenting to the emergency room on account of intractable nausea, vomiting, diarrhea onset yesterday. Patient states she had not eaten anything because she had been feeling bad with neck pain and had been started on a patch for the neck pain. She suddenly developed nausea with vomiting, which has persisted until presentation to the emergency room tonight. CT abdomen and pelvis completed showed fatty liver, 5 mm cyst and superior medial segment 4A of left hepatic lobe and 11 mm cyst in posterior inferior segment 6 of right hepatic lobe, unchanged from prior CT scan completed 2016. Gallbladder was distended without wall thickening, pericholecystic fluid or pericholecystic inflammatory changes. There was also high attenuation material layering in the dependent part portion of the body of the gallbladder thought to possibly represent calculi, or sludge. Laboratory data was abnormal for white blood count of 10.5. Lipase was 97. Alkaline phosphatase was 129 Home Medications Scheduled Amitriptyline HCl (Amitriptyline HCl) 25 Mg Tab, 25 MG PO QHS, (Reported) Amlodipine Besylate (Amlodipine Besylate) 5 Mg Tab, 5 MG PO DAILY, (Reported) Levothyroxine Sodium (Levoxyl) 100 Mcg Tab, 100 MCG PO DAILY, (Reported) Metoprolol Tartrate (Metoprolol Tartrate) 25 Mg Tab, 25 MG PO BID, (Reported) Omeprazole (Omeprazole) 40 Mg Cap, 40 MG PO QHS, (Reported) Paroxetine HCl (Paroxetine HCl) 20 Mg Tab, 20 MG PO DAILY, (Reported) Scheduled PRN Acetaminophen (Acetaminophen) 500 Mg Tab, 1,000 MG PO Q6H PRN for PAIN OR FEVER, (Reported) Albuterol Sulfate (Proair Hfa) 8.5 Gm Hfa.aer.ad, 2 PUFF INH Q4H PRN for SHORTNESS OF BREATH, (Reported) Ondansetron (Ondansetron Odt) 4 Mg Tab, 4 MG PO Q4H PRN for NAUSEA, (Reported) Tramadol HCl (Tramadol HCl) 50 Mg Tab, 50 MG PO Q6H PRN for PAIN, (Reported) Allergies Coded Allergies: NSAIDS (Non-Steroidal Anti-Inflamma (Verified Adverse Reaction, Intermediate, D/T STOMACH, 05/07/19) Past Medical History Medical History Hypertension COPD Gastric ulcer Hypothyroidism Fatty liver disease Depression Anorexia Surgical History Gastric bypass. Parathyroidectomy. EGD Family History Denies any family history in parents or siblings Social History Denies tobacco, alcohol, polysubstance abuse A-FIB/CHADSVASC A-FIB History Current/History of A-Fib/PAF?: No Current PO Anticoag Therapy: No Review of Systems Other systems A 10 point pertinent review of systems is completed, negative except as stated in history of presenting illness Physical Examination Other physical findings GENERAL: NAD SKIN : Warm, dry intact HEENT: Atraumatic, normocephalic, PERRL, moist mucous membrane CARDIOVASCULAR: Regular rate and rhythm, S1S2, no JVD, no edema, distal pulses + and palpable RESP: CTAB, no accessory muscle use noted ABDOMEN: BS+ non distended non tender MS: no joint deformities NEURO: Alert and oriented x 3, CN2-12 grossly intact PSYCH: no anxiety or agitation, appropriate mood and affect. Vital Signs Vital Signs Date Time Temp Pulse Resp B/P (MAP) Pulse Ox O2 Delivery O2 Flow Rate FiO2 05/08/19 00:00 141/75 (97) 05/07/19 23:45 107 92 05/07/19 22:44 98.1 17 Room Air Laboratory Data Labs 24H Laboratory Tests 2 05/07/19 23:05: Immature Granulocyte % (Auto) 0.5, White Blood Count 10.5H, Red Blood Count 4.75, Hemoglobin 13.6, Hematocrit 41.5, Mean Corpuscular Volume 87.4, Mean Corpuscular Hemoglobin 28.6, Mean Corpuscular Hemoglobin Concent 32.8, Red Cell Distribution Width 12.5, Platelet Count 345, Neutrophils (%) (Auto) 83.0H, Lymphocytes (%) (Auto) 9.4L, Monocytes (%) (Auto) 6.0H, Eosinophils (%) (Auto) 0.8, Basophils (%) (Auto) 0.3, Neutrophils # (Auto) 8.7H, Lymphocytes # (Auto) 1.0L, Monocytes # (Auto) 0.6, Eosinophils # (Auto) 0.1, Basophils # (Auto) 0.0, Nucleated Red Blood Cells % (auto) 0.0, Aspartate Amino Transf (AST/SGOT) 22, Alanine Aminotransferase (ALT/SGPT) 16, Alkaline Phosphatase 129H, Total Bilirubin 0.4, Direct Bilirubin < 0.1, Total Creatine Kinase 107, Creatine Kinase MB 5.7H, Creatine Kinase MB Relative Index 5.33H, Troponin I < 0.02, Total Protein 7.3, Albumin 3.3, Albumin/Globulin Ratio 0.83L, Lipase 97 05/07/19 23:14: POC Glucose (Misc Panel) 114H, POC Sodium (Misc Panel) 139, POC Potassium (Misc Panel) 3.8, POC Chloride (Misc Panel) 101, POC Total CO2 (Misc Panel) 26.0, POC Blood Urea Nitrogen (Misc Panel 7L, POC Ionized Calcium (Misc Panel) 4.6, POC Creatinine (Misc Panel) 0.7, POC Hematocrit (Misc Panel) 40.0 CBC/BMP Laboratory Tests 05/07/19 23:05 Red Blood Count 4.75, Mean Corpuscular Volume 87.4, Mean Corpuscular Hemoglobin 28.6, Mean Corpuscular Hemoglobin Concent 32.8, Red Cell Distribution Width 12.5, Neutrophils (%) (Auto) 83.0 H, Lymphocytes (%) (Auto) 9.4 L, Monocytes (%) (Auto) 6.0 H, Eosinophils (%) (Auto) 0.8, Basophils (%) (Auto) 0.3, Neutrophils # (Auto) 8.7 H, Lymphocytes # (Auto) 1.0 L, Monocytes # (Auto) 0.6, Eosinophils # (Auto) 0.1, Basophils # (Auto) 0.0 Assessment/Plan Acute gastroenteritis -Gastric rest, keep patient nothing by mouth at this time -Abnormal findings with distended gallbladder suggestive of acute cholecystitis by CT scan -Follow ultrasound imaging study -Consult patient's surgeon for evaluation and input if US findings support CT findings -Anti-emetics for symptom control - Check GI panel Hypertension -Uncontrolled -Parenteral medication while nothing by mouth -Blood pressure monitoring per unit protocol Hypothyroidism -Continue Synthroid COPD -continue bronchodilator therapy as need -respiratory support as needed DVT prophylaxis -Antiembolic stockings with SCDs Patient seen and examined at this time. This is a 68-year-old female who since starting cyclobenzaprine on Tuesday she has had continuous nausea vomiting and diarrhea. She was recently admitted for right septic knee and was on antibiotics one month ago. She does much of her vomiting is been dry heaves as she is unable to able to take anything by mouth. Other than right neck pain for which she start the cyclobenzaprine she really does not have any abdominal pain. Exam is fairly benign. Mendoza's is negative. She'll be admitted to the medical surgical floor we'll provide her bowel rest and nothing by mouth IV Zofran IV fluids IV PPI twice a day as well as Carafate and see if some gastritis is alleviated. I will try this for 24 hours and reintroduce diet gradually started with clear liquids and advancing a brat diet as tolerated. We have also ordered a GI PCR panel to exclude any infectious etiologies. If this does not resolve her her symptoms and nausea vomiting persist consider inpatient an upper endoscopy. CT scan did reveal some gallbladder sludge however exam once again is fairly benign will follow up her ultrasound, she is on empiric Zosyn at this time we will check pro-calcitonin as well as blood cultures Plan / VTE VTE Prophylaxis Ordered?: Yes ORALIA ARCE May 08, 2019 02:10 LISSETH BARTLETT MD May 08, 2019 03:50
--- NOTE | 2019-05-08 02:26 | REPVR ---
EXAM: US Abdomen Limited, Right Upper Quadrant EXAM DATE/TIME: 05/08/2019 2:03 AM CLINICAL HISTORY: 68 years old, female; Distended gallbladder and leukocytosis. TECHNIQUE: Imaging protocol: Real-time ultrasound of the abdomen with image documentation. Examination was focused on the right upper quadrant. COMPARISON: CT ABD/PEL W/IV CONTRAST ONLY 05/07/2019 11:25 PM FINDINGS: Liver: The echogenicity of the liver is within normal limits. There is a 5 mm x 4 mm x 7 mm cyst in the right hepatic lobe. The contour of the liver is smooth. No hepatomegaly is noted. Gallbladder: The gallbladder is distended and there are gallstones, biliary sludge, and a sonographic Mendoza's sign, which are findings compatible with acute cholecystitis. No gallbladder wall thickening or pericholecystic fluid is noted. Common bile duct: The common bile duct is dilated and measures 8 mm in diameter at the level of the stacy hepatis. Pancreas: The visualized portion of the pancreas is unremarkable. The tail of the pancreas was obscured by gas in the stomach and bowel. Right kidney: There is thinning of the cortex of the superior third of the right kidney. The renal cortical echogenicity is within normal limits. No renal lesion is seen. There is no hydronephrosis. No obvious stones are seen in the renal collecting system. Intraperitoneal space: No free fluid is seen from the images obtained. IMPRESSION: Acute cholecystitis. Electronically signed by: Vinny Trevino On 05/08/2019 02:26:27 AM
[2019-05-08] MEDS: NS 1,000 ML IV SCH ×3 (02:56→17:25)
[2019-05-08] MEDS ORDERED: diphenhydrAMINE 25 MG CAP PO ONE (04:15)
[2019-05-08] MEDS: LIDOCAINE 5% (LIDODERM) PATCH TD SCH (04:17)
[2019-05-08 05:33] LABS: HEMATOCRIT 35.5 % (36.0-47.0); MEAN CORPUSCULAR HEMOGLOBIN 27.4 pg (27.0-33.0); MEAN CORPUSCULAR HGB CONC 31.8 g/dl (32.0-36.5); MEAN CORPUSCULAR VOLUME 86.2 fl (80.0-96.0); PLATELET COUNT, AUTOMATED 330 10^3/uL (150-450); RED BLOOD COUNT 4.12 10^6/uL (4.00-5.40); WHITE BLOOD COUNT 7.2 10^3/uL (4.0-10.0)
--- NOTE | 2019-05-08 05:41 | ECGEPIP ---
[facility] - ED Test Date: 2019-05-07 Pat Name: JEFF DEL ANGEL Department: Room: - Gender: Female Scow Captain: LOU : 1950 Requested By: YOHANA Gee Order Number: [id number] Reading MD: Marshal Hamilton Measurements Intervals [place] Rate: 96 P: 76 MD: 143 QRS: 67 QRSD: 80 T: 76 QT: 362 QTc: 458 Interpretive Statements SINUS RHYTHM WITH OCCASIONAL VENTRICULAR PREMATURE COMPLEXES BASELINE ARTIFACT AFFECTS INTERPRETATION NSTTW ABNORMALITIES SIMILAR TO PRIOR ON SAME DATE Electronically Signed on 05-08-2019 5:41:33 EDT by Marshal Hamilton
[2019-05-08 05:50] LABS: HEMOGLOBIN 11.3 g/dl (12.0-15.5)
[2019-05-08 05:59] LABS: BLOOD UREA NITROGEN 6 MG/DL (7-18); CALCIUM LEVEL 8.7 MG/DL (8.8-10.2); CARBON DIOXIDE LEVEL 25 MEQ/L (21-32); CHLORIDE LEVEL 108 MEQ/L (98-107); CREATININE FOR GFR 0.69 MG/DL (0.55-1.30); GLOMERULAR FILTRATION RATE > 60.0 (>45); GLUCOSE, FASTING 93 MG/DL (70-100); POTASSIUM SERUM 3.6 MEQ/L (3.5-5.1); SODIUM LEVEL 141 MEQ/L (136-145)
[2019-05-08] MEDS: SUCRALFATE 1 GM TAB PO SCH ×4 (08:29→20:31)
[2019-05-08] MEDS: LEVOTHYROXINE 100MCG TABLET (0.1MG) PO SCH (08:29)
[2019-05-08] MEDS: PANTOPRAZOLE 40MG INJ (PROTONIX) (C9113) IV SCH ×2 (08:29→20:30)
[2019-05-08] MEDS: PIPERACILLIN/TAZOBACTAM SOD 2.25 GM in D5W MINI-BAG PLUS 50 ML IV SCH ×3 (08:29→20:30)
[2019-05-08] MEDS: METOPROLOL TART 25 MG TABLET PO SCH ×3 (08:30→20:31)
[2019-05-08] MEDS: amLODIPine 5 MG TAB PO SCH (08:30)
[2019-05-08] MEDS ORDERED: METOPROLOL 5 MG/5 ML VIAL IV SCH (09:00)
--- NOTE | 2019-05-08 11:16 | IPNPDOC ---
Text Note Date of Service The patient was seen on 05/08/19. NOTE Patient was seen and examined by me this morning. States that she has had a lot of neck pain except for that. States that her abdominal pain has resolved but she still feels very nauseous. PHYSICAL EXAMINATION: General: The patient is awake, alert, oriented x3, sitting up in the bed in no apparent distress. Head and Neck Exam: Extraocular muscles intact. Pupils equally round and reactive to light. Mucous membranes are moist. Patient complaining of right- sided neck pain Neck is supple. There is no jugular venous distention (JVD). Cardiovascular: S1 and S2, regular rate. Trace edema of the bilateral lower extremities. Respiratory: Clear entry bilaterally. No rhonchi, no rales, no wheezing Abdomen: Soft. Mild right upper quadrant tenderness on deep palpation. P ositive bowel sounds. No organomegaly. Genitourinary: Deferred Musculoskeletal: Clubbing of the fingernails, no cyanosis was noted. Central Nervous System : No focal deficit. Power is 5/5 in all extremities. Laboratory Tests 05/07/19 23:05 Red Blood Count 4.75, Mean Corpuscular Volume 87.4, Mean Corpuscular Hemoglobin 28.6, Mean Corpuscular Hemoglobin Concent 32.8, Red Cell Distribution Width 12.5, Neutrophils (%) (Auto) 83.0 H, Lymphocytes (%) (Auto) 9.4 L, Monocytes (%) (Auto) 6.0 H, Eosinophils (%) (Auto) 0.8, Basophils (%) (Auto) 0.3, Neutrophils # (Auto) 8.7 H, Lymphocytes # (Auto) 1.0 L, Monocytes # (Auto) 0.6, Eosinophils # (Auto) 0.1, Basophils # (Auto) 0.0 05/08/19 05:21 Red Blood Count 4.12, Mean Corpuscular Volume 86.2, Mean Corpuscular Hemoglobin 27.4, Mean Corpuscular Hemoglobin Concent 31.8 L, Red Cell Distribution Width 12.8, Calcium Level 8.7 L Vital Sign - Last 24 Hours 05/07/19 05/07/19 05/07/19 05/07/19 22:43 22:44 22:44 22:45 Temp 98.1 Pulse 102 106 Resp 17 B/P (MAP) 149/75 (99) 149/75 (99) 151/76 (101) Pulse Ox 96 96 O2 Delivery Room Air 05/07/19 05/07/19 05/07/19 05/07/19 23:00 23:15 23:45 23:46 Pulse 105 107 107 B/P (MAP) 136/78 (97) Pulse Ox 97 97 92 05/08/19 05/08/19 05/08/19 05/08/19 00:00 00:15 00:30 00:31 B/P (MAP) 141/75 (97) 152/75 (100) 131/79 (96) Pulse Ox 94 05/08/19 05/08/19 05/08/19 05/08/19 00:45 01:00 01:15 01:30 Pulse 103 102 103 101 B/P (MAP) 139/75 (96) 129/70 (89) 140/93 (109) 152/97 (115) Pulse Ox 96 98 98 90 05/08/19 05/08/19 05/08/19 05/08/19 01:45 02:00 02:03 02:15 Pulse 97 97 110 B/P (MAP) 166/104 (124) Pulse Ox 97 95 96 05/08/19 05/08/19 05/08/19 05/08/19 02:30 02:45 02:46 03:13 Temp 97.6 Pulse 104 110 96 Resp 18 B/P (MAP) 152/77 (102) 118/87 (97) 152/93 (112) Pulse Ox 96 97 90 05/08/19 05/08/19 05/08/19 05/08/19 05:30 08:30 08:30 10:10 Temp 97.3 97.9 Pulse 99 99 99 108 Resp 12 16 B/P (MAP) 119/64 (82) 119/64 119/64 162/92 (115) Pulse Ox 97 98 Assessment and plan 1. Acute gastritis: Patient still continues to complain off nausea and retching but has not vomited. Does not complain of any diarrhea. Continue her tonics 40 twice a day. Nothing by mouth except meds at this time. 2. Concerns of acute cholecystitis. The patient got a ultrasound liver as well as CAT scan which shows that the patient has distended cognitive with some sludge and small stones. As the patient was having right upper quadrant pain and has leukocytosis. The patient will be seen by surgery. I spoke with them personally. The patient on IV Zosyn for now. Nothing by mouth except meds. IV fluids at 75 mL/h. On further nausea and vomiting. 3. Hypertension: Continue when necessary medications. We'll optimize her blood pressure. 4. Hypothyroidism: Continue Synthroid 5. COPD. continue with other therapy as needed. 19. Oxygen of 92 by supplemental oxygen. DVT prophylaxis with SCDs. Disposition. Likely home in the next 24-48 hours once surgically cleared and had nausea and vomiting, has resolved VS,Fishbone, I+O VS, Fishbone, I+O Laboratory Tests 05/07/19 23:05 Red Blood Count 4.75, Mean Corpuscular Volume 87.4, Mean Corpuscular Hemoglobin 28.6, Mean Corpuscular Hemoglobin Concent 32.8, Red Cell Distribution Width 12. 5, Neutrophils (%) (Auto) 83.0 H, Lymphocytes (%) (Auto) 9.4 L, Monocytes (%) (Auto) 6.0 H, Eosinophils (%) (Auto) 0.8, Basophils (%) (Auto) 0.3, Neutrophils # (Auto) 8.7 H, Lymphocytes # (Auto) 1.0 L, Monocytes # (Auto) 0.6, Eosinophils # (Auto) 0.1, Basophils # (Auto) 0.0 05/08/19 05:21 Red Blood Count 4.12, Mean Corpuscular Volume 86.2, Mean Corpuscular Hemoglobin 27.4, Mean Corpuscular Hemoglobin Concent 31.8 L, Red Cell Distribution Width 12.8, Calcium Level 8.7 L Vital Signs Date Time Temp Pulse Resp B/P (MAP) Pulse Ox O2 Delivery O2 Flow Rate FiO2 05/08/19 10:10 97.9 108 16 162/92 (115) 98 05/07/19 22:44 Room Air I&O- Last 24 Hours up to 6 AM 05/08/19 06:00 Intake Total 50 ml Output Total 150 ml Balance -100 ml ANGELIQUE LAGUNAS MD May 08, 2019 11:16
[2019-05-08] MEDS: PROMETHAZINE INJ 25 MG/ML VIAL (J2550) IV PRN ×2 (11:22→17:19)
[2019-05-08] MEDS: MORPHINE 4 MG/ML 1ML VIAL/SYRINGE (J2270) IV PRN ×2 (14:39→20:43)
[2019-05-08] MEDS: ACETAMINOPHEN 500 MG TAB PO PRN ×2 (14:43→20:42)
[2019-05-08] MEDS: AMITRIPTYLINE 25 MG TAB PO SCH (20:31)
[2019-05-08] MEDS: **NOTE PATIENT COMMENT** MISC XX SCH (20:32)
[2019-05-09] MEDS: PROMETHAZINE INJ 25 MG/ML VIAL (J2550) IV PRN ×3 (00:33→17:21)
[2019-05-09 02:10] VITALS: BP 116/75
[2019-05-09] MEDS: PIPERACILLIN/TAZOBACTAM SOD 2.25 GM in D5W MINI-BAG PLUS 50 ML IV SCH ×4 (02:51→20:04)
[2019-05-09] MEDS: MORPHINE 4 MG/ML 1ML VIAL/SYRINGE (J2270) IV PRN (04:36)
[2019-05-09] MEDS: ACETAMINOPHEN 500 MG TAB PO PRN ×2 (04:37→18:27)
[2019-05-09] MEDS: NS 1,000 ML IV SCH (04:37)
[2019-05-09 05:37] VITALS: BP 119/74
[2019-05-09 05:46] LABS: BASO % 0.5 % (0.0-1.0); EOS # 0.2 10^3/uL (0.0-0.50); EOS % 2.7 % (0.0-3.0); HEMATOCRIT 35.7 % (36.0-47.0); LYMPH # 0.7 10^3/uL (1.5-4.5); MEAN CORPUSCULAR HEMOGLOBIN 27.7 pg (27.0-33.0); MEAN CORPUSCULAR HGB CONC 30.8 g/dl (32.0-36.5); MEAN CORPUSCULAR VOLUME 89.9 fl (80.0-96.0); MONO # 0.4 10^3/uL (0.0-0.8); MONO % 6.3 % (0.0-5.0); NEUTROPHILS # 4.3 10^3/uL (1.8-7.7); NEUTROPHILS % 77.1 % (36.0-66.0); PLATELET COUNT, AUTOMATED 282 10^3/uL (150-450); RED BLOOD COUNT 3.97 10^6/uL (4.00-5.40); WHITE BLOOD COUNT 5.5 10^3/uL (4.0-10.0)
[2019-05-09 06:05] LABS: BLOOD UREA NITROGEN 7 MG/DL (7-18); CARBON DIOXIDE LEVEL 23 MEQ/L (21-32); CHLORIDE LEVEL 109 MEQ/L (98-107); CREATININE FOR GFR 0.57 MG/DL (0.55-1.30); GLOMERULAR FILTRATION RATE > 60.0 (>45); GLUCOSE, FASTING 50 MG/DL (70-100); MAGNESIUM LEVEL 1.7 MG/DL (1.8-2.4); POTASSIUM SERUM 3.2 MEQ/L (3.5-5.1); SODIUM LEVEL 144 MEQ/L (136-145)
[2019-05-09] MEDS ORDERED: POTASSIUM CHLORIDE 10 MEQ SR TABLET PO ONE (08:00)
--- NOTE | 2019-05-09 08:22 | CR.PDOC ---
General Surgery Consultation Date of Consultation 05/08/19 History and Physical CONSULT REPORT FOR: hospitalist service REASON FOR CONSULTATION: Nausea and vomiting, possible cholecystitis HISTORY OF PRESENT ILLNESS: Patient is a 68-year-old female with significant history for prior gastrectomy with Billroth II gastrojejunostomy for peptic ulcer disease which subsequently needed to be revised to a Chacho-en-Y gastrojejunostomy for mild gastritis in 2017. She presented then with weight loss from intractable nausea and vomiting. At that time she was also being entertained to have gastroparesis though I'm not sure if there is any documented evidence of this. Since that surgery her daughter reports that she has done much better, gained weight and has not had any significant episodes of nausea up until yesterday. She reports sudden onset of nausea, retching, vomiting for which she is currently admitted to the hospital. She was incidentally found to have evidence of gallbladder gallbladder sludge or small choleliths with distention of the gallbladder without associated wall thickening on CT. Discussed the possibility of having biliary colic attack or even cholecystitis. This was followed up with an ultrasound confirming earlier findings. She was documented to have a sonographic Mendoza's sign suspicious for acute cholecystitis. Patient tells me that he hurts for them to jab the ultrasound probe at that time because she was very nauseated and her abdominal wall was hurting from too much retching. She's denying any ongoing abdominal pain or discomfort at the time that I saw her and she remains nauseated. She also had one loose stool prior to her coming to the emergency room but she has had a normal bowel movement following that. She denies any sick contacts or any other members of the family that is similarly ill. She denies any associated fevers or chills. She does not notice any postprandial biliary colic type symptoms before. She remains on omeprazole for ulcer disease. She has not had any endoscopies done after the Chacho-en-Y gastrojejunostomy 2 years ago for any reason. PAST MEDICAL HISTORY: 1. Peptic ulcer disease 2. Hypertension 3. COPD 4. Fatty liver disease 5. Depression 6. Hypothyroidism following radioactive iodine administration PAST SURGICAL HISTORY: INCLUDES: 1. Distal gastrectomy with Billroth II gastrojejunostomy in 1993 2. Revision of the gastrojejunostomy to a Chacho-en-Y gastrojejunostomy in 2017 for bile gastritis 3. EGD and colonoscopy 4. section 5. Repair of right hip fracture PREVIOUS ANESTHESIA REACTIONS: Denies ALLERGIES: Please see below. HOME MEDICATIONS: Please see below. REVIEW OF SYSTEMS: GENERAL: Patient was in her usual state of health prior to start of nausea yesterday. Since 2017 has had gained weight after the Chacho-en-Y gastrojejunostomy surgery. HEENT: Denies blurred vision and double vision. Denies ear symptoms. Denies hoarseness CARDIOVASCULAR: Denies chest pain and palpitations. MUSCULOSKELETAL: Reports history of low back pain, hip pain. SKIN: Denies rash. NEUROLOGIC: Denies headache, stroke and transient ischemic attack.. ENDOCRINE: Prior hyperthyroidism treated with radioactive iodine no with hypothyroidism no clinical symptoms. HEMATOLOGY/ONCOLOGY: Denies bleeding or clotting disorder. HEART: Denies any chest pains, palpitations, paroxysmal dyspnea, orthopnea. PULMONARY: Reports COPD not oxygen dependent no recent exacerbation. GASTROINTESTINAL: See HPI. GENITOURINARY: Denies dysuria, frequency, hematuria and nocturia. ENDOCRINE: Denies polydipsia, polyphagia, polyuria, heat or cold intolerance. INFECTIOUS: Denies any recent upper respiratory tract infection, UTI, need for use of antibiotics. NUTRITION: Reports fair appetite as baseline. PHYSICAL EXAMINATION: VITALS SIGNS: Please see below. GENERAL APPEARANCE: Patient seen laying on the decubitus position on bed, mildly uncomfortable from the nausea, eyes closed. SKIN: Warm and dry. HEENT: Mild pale palpebral conjunctivae time, dry lips. NECK: Supple, no thyromegaly. No obvious jugular venous distention. LUNGS: Clear to auscultation bilaterally. No wheezing appreciated. HEART: No chest wall abnormalities. Regular rate and rhythm with no murmurs appreciated. ABDOMEN: Abdomen is mildly rounded, soft, relatively flat, minimally tympanitic to percussion. She has a midline incision that appears fully healed without any active wounds, mild diastases, no noticeable hernia. She is nontender on palpation throughout her abdomen specifically at the right upper quadrant area. No guarding. EXTREMITIES: Extremities have no deformities. No edema identified ANCILLARIES: . LABORATORY DATA: Please see below. IMAGING STUDIES: CT abdomen and pelvis 1. Markedly distended gallbladder with some high attenuation material layering in the dependent portion of the body of the gallbladder, which may represent calculi and/or sludge. 2. 2 cm x 1.8 cm x 3.6 cm cystic lesion in the left ovary with septations, which is similar in size compared to the prior CT scan on 10/21/2016. 3. Sigmoid diverticulosis without evidence for diverticulitis. 4. Fatty liver. Abdominal ultrasound Liver: The echogenicity of the liver is within normal limits. There is a 5 mm x 4 mm x 7 mm cyst in the right hepatic lobe. The contour of the liver is smooth. No hepatomegaly is noted. Gallbladder: The gallbladder is distended and there are gallstones, biliary sludge, and a sonographic Mendoza's sign, which are findings compatible with acute cholecystitis. No gallbladder wall thickening or pericholecystic fluid is noted. Common bile duct: The common bile duct is dilated and measures 8 mm in diameter at the level of the stacy hepatis. IMPRESSION AND PLAN: Intractable nausea and vomiting on a patient status post partial gastrectomy, initially with Billroth II gastrojejunostomy later revised to Chacho-en-Y gastrojejunostomy in 2017. She was previously suspected of gastroparesis. Cholelithiasis Her presentation is not typical for acute cholecystitis or biliary colic epi sodes. She does not report any significant abdominal discomfort prior to the episode of nausea and vomiting and does not report any prior biliary colic type postprandial discomfort. At that time that I saw her, she is not having any abdominal discomfort nor having any tenderness on examination and abdomen does not look terribly distended. She presented with mild leukocytosis which immediately improved on follow-up. Her LFTs are normal save for a mildly increased alkaline phosphatase. I'm more suspicious of a new ulcer disease at the gastrojejunostomy as a possible cause of her acute onset of nausea and vomiting. She has been placed on sucralfate and on pantoprazole IV. She is maintained on 40 mg of omeprazole orally. I will schedule her for an upper GI endoscopy to evaluate for possible ulcer disease, gastritis to explain her symptoms. Further recommendations after the procedure. Vital Signs Vital Signs Date Time Temp Pulse Resp B/P (MAP) Pulse Ox O2 Delivery O2 Flow Rate FiO2 05/09/19 05:37 97.3 85 12 119/74 (89) 92 05/07/19 22:44 Room Air I&Os I&O- Last 24 Hours up to 6 AM 05/09/19 06:00 Intake Total 1210 ml Output Total 1850 ml Balance -640 ml Laboratory Data Labs 24H Laboratory Tests 2 05/09/19 05:13: Immature Granulocyte % (Auto) 0.4, White Blood Count 5.5, Red Blood Count 3.97L, Hemoglobin 11.0L, Hematocrit 35.7L, Mean Corpuscular Volume 89.9, Mean Corpuscular Hemoglobin 27.7, Mean Corpuscular Hemoglobin Concent 30.8L, Red Cell Distribution Width 12.6, Platelet Count 282, Neutrophils (%) (Auto) 77.1H, Lymphocytes (%) (Auto) 13.0L, Monocytes (%) (Auto) 6.3H, Eosinophils (%) (Auto) 2.7, Basophils (%) (Auto) 0.5, Neutrophils # (Auto) 4.3, Lymphocytes # (Auto) 0.7L, Monocytes # (Auto) 0.4, Eosinophils # (Auto) 0.2, Basophils # (Auto) 0.0, Nucleated Red Blood Cells % (auto) 0.0, Anion Gap 12, Glomerular Filtration Rate > 60.0, Blood Urea Nitrogen 7, Creatinine 0.57, Sodium Level 144, Potassium Level 3.2L, Chloride Level 109H, Carbon Dioxide Level 23, Calcium Level 8.0L, Magnesium Level 1.7L CBC/BMP Laboratory Tests 05/09/19 05:13 Red Blood Count 3.97 L, Mean Corpuscular Volume 89.9, Mean Corpuscular Hemoglobin 27.7, Mean Corpuscular Hemoglobin Concent 30.8 L, Red Cell Distribution Width 12.6, Neutrophils (%) (Auto) 77.1 H, Lymphocytes (%) (Auto) 13.0 L, Monocytes (%) (Auto) 6.3 H, Eosinophils (%) (Auto) 2.7, Basophils (%) (Auto) 0.5, Neutrophils # (Auto) 4.3, Lymphocytes # (Auto) 0.7 L, Monocytes # (Auto) 0.4, Eosinophils # (Auto) 0.2, Basophils # (Auto) 0.0, Calcium Level 8.0 L Microbiology Microbiology 05/08/19 Blood Culture - Preliminary, Resulted No growth after 24 hours . All specim... 05/08/19 Blood Culture - Preliminary, Resulted No growth after 24 hours . All specim... Home Medications Scheduled Amitriptyline HCl (Amitriptyline HCl) 25 Mg Tab, 25 MG PO QHS, (Reported) Amlodipine Besylate (Amlodipine Besylate) 5 Mg Tab, 5 MG PO DAILY, (Reported) Levothyroxine Sodium (Levoxyl) 100 Mcg Tab, 100 MCG PO DAILY, (Reported) Metoprolol Tartrate (Metoprolol Tartrate) 25 Mg Tab, 25 MG PO BID, (Reported) Omeprazole (Omeprazole) 40 Mg Cap, 40 MG PO QHS, (Reported) Paroxetine HCl (Paroxetine HCl) 20 Mg Tab, 20 MG PO DAILY, (Reported) Scheduled PRN Acetaminophen (Acetaminophen) 500 Mg Tab, 1,000 MG PO Q6H PRN for PAIN OR FEVER, (Reported) Albuterol Sulfate (Proair Hfa) 8.5 Gm Hfa.aer.ad, 2 PUFF INH Q4H PRN for SHORTNESS OF BREATH, (Reported) Ondansetron (Ondansetron Odt) 4 Mg Tab, 4 MG PO Q4H PRN for NAUSEA, (Reported) Tramadol HCl (Tramadol HCl) 50 Mg Tab, 50 MG PO Q6H PRN for PAIN, (Reported) Allergies Coded Allergies: NSAIDS (Non-Steroidal Anti-Inflamma (Verified Adverse Reaction, Inter mediate, D/T STOMACH, 05/07/19) ELADIO BALL MD May 09, 2019 08:22
[2019-05-09] MEDS: PANTOPRAZOLE 40MG INJ (PROTONIX) (C9113) IV SCH ×2 (08:37→20:04)
[2019-05-09] MEDS: amLODIPine 5 MG TAB PO SCH (08:38)
[2019-05-09] MEDS: LEVOTHYROXINE 100MCG TABLET (0.1MG) PO SCH (08:38)
[2019-05-09] MEDS: LIDOCAINE 5% (LIDODERM) PATCH TD SCH ×2 (08:39→09:00)
[2019-05-09] MEDS: METOPROLOL TART 25 MG TABLET PO SCH ×2 (08:39→20:05)
[2019-05-09] MEDS: SUCRALFATE 1 GM TAB PO SCH ×4 (09:00→20:05)
[2019-05-09 10:02] VITALS: BP 101/58
--- NOTE | 2019-05-09 11:14 | IPNPDOC ---
Text Note Date of Service The patient was seen on 05/09/19. NOTE Patient was seen and examined by me this morning. States that she's feeling be tter PHYSICAL EXAMINATION: General: The patient is awake, alert, oriented x3, sitting up in the bed in no apparent distress. Head and Neck Exam: Extraocular muscles intact. Pupils equally round and reactive to light. Mucous membranes are moist. Patient complaining of right- sided neck pain Neck is supple. There is no jugular venous distention (JVD). Cardiovascular: S1 and S2, regular rate. Trace edema of the bilateral lower extremities. Respiratory: Clear entry bilaterally. No rhonchi, no rales, no wheezing Abdomen: Soft. Mild right upper quadrant tenderness on deep palpation. Positiv e bowel sounds. No organomegaly. Genitourinary: Deferred Musculoskeletal: Clubbing of the fingernails, no cyanosis was noted. Central Nervous System : No focal deficit. Power is 5/5 in all extremities. Assessment and plan 1. Acute gastritis/peptic ulcer disease: Patient still continues to complain off nausea and retching but has not vomited. Does not complain of any diarrhea. Continue her protonics 40 twice a day. We will escalate her that as she tolerates. Continue sucralfate 2. Concerns of acute cholecystitis. The patient got a ultrasound liver as well as CAT scan which shows that the patient has distended cognitive with some sludge and small stones. As the patient was having right upper quadrant pain and has leukocytosis. The patient has been seen by surgery. I spoke with them per sonally. The patient on IV Zosyn for now. Looks like it'll be only conservative management as the patient's presentation is not typical for cholecystitis 3. Hypertension: Continue when necessary medications. We'll optimize her blood pressure. 4. Hypothyroidism: Continue Synthroid 5. COPD. continue with other therapy as needed. 19. Oxygen of 92 by supplemental oxygen. DVT prophylaxis with SCDs. Disposition. Likely home in the next 24-48 hours once surgically cleared and had nausea and vomiting, has resolved VS,Fishbone, I+O VS, Fishbone, I+O Laboratory Tests 05/09/19 05:13 Red Blood Count 3.97 L, Mean Corpuscular Volume 89.9, Mean Corpuscular Hemoglobin 27.7, Mean Corpuscular Hemoglobin Concent 30.8 L, Red Cell Distribution Width 12.6, Neutrophils (%) (Auto) 77.1 H, Lymphocytes (%) (Auto) 13.0 L, Monocytes (%) (Auto) 6.3 H, Eosinophils (%) (Auto) 2.7, Basophils (%) (Auto) 0.5, Neutrophils # (Auto) 4.3, Lymphocytes # (Auto) 0.7 L, Monocytes # (Auto) 0.4, Eosinophils # (Auto) 0.2, Basophils # (Auto) 0.0, Calcium Level 8.0 L Vital Signs Date Time Temp Pulse Resp B/P (MAP) Pulse Ox O2 Delivery O2 Flow Rate FiO2 05/09/19 10:02 97.4 80 12 101/58 (72) 93 05/07/19 22:44 Room Air I&O- Last 24 Hours up to 6 AM 05/09/19 06:00 Intake Total 1210 ml Output Total 1850 ml Balance -640 ml ANGELIQUE LAGUNAS MD May 09, 2019 11:14
[2019-05-09] MEDS ORDERED: LIDOCAINE 2% INJ 100 MG/5 ML SDV (FOR ANES.) As Ordered ONE (13:29)
[2019-05-09] MEDS ORDERED: PROPOFOL 200 MG/20 ML VIAL As Ordered ONE (13:29)
--- NOTE | 2019-05-09 13:32 | ROOR ---
Patient Name: Kelli Garibay Procedure Date: 05/09/2019 1:04 PM Date of : 1950 Age: 68 Room: [facility] Gender: Female Note Status: Finalized Procedure: Upper GI endoscopy Indications: Nausea with vomiting Providers: Tommy Velásquez MD Referring MD: 2. Inpatient 2. Inpatient Requesting Provider: Medicines: Monitored Anesthesia Care Complications: No immediate complications. Procedure: Pre-Anesthesia Assessment: - Prior to the procedure, a History and Physical was performed, and patient medications and allergies were reviewed. The patient is competent. The risks and benefits of the procedure and the sedation options and risks were discussed with the patient. All questions were answered and informed consent was obtained. Patient identification and proposed procedure were verified by the physician, the nurse and the anesthesiologist in the endoscopy suite. Mental Status Examination: alert and oriented. Airway Examination: normal oropharyngeal airway and neck mobility. Respiratory Examination: clear to auscultation. CV Examination: normal. Prophylactic Antibiotics: The patient does not require prophylactic antibiotics. Prior Anticoagulants: The patient has taken no previous anticoagulant or antiplatelet agents. ASA Grade Assessment: III - A patient with severe systemic disease. After reviewing the risks and benefits, the patient was deemed in satisfactory condition to undergo the procedure. The anesthesia plan was to use monitored anesthesia care (MAC). Immediately prior to administration of medications, the patient was re-assessed for adequacy to receive sedatives. The heart rate, respiratory rate, oxygen saturations, blood pressure, adequacy of pulmonary ventilation, and response to care were monitored throughout the procedure. The physical status of the patient was re-assessed after the procedure. The Endoscope was introduced through the mouth, and advanced to the mid-jejunum. The upper GI endoscopy was accomplished without difficulty. The patient tolerated the procedure well. Findings: There is no endoscopic evidence of bleeding, areas of erosion, esophagitis or inflammation in the entire esophagus. Roughly 150 ml sized stomach (post gastrectomy) No evidence of ulcers, gastritis. No inflammation, Estimated blood loss: none. Impression: - No specimens collected. Recommendation: - Admit the patient to hospital key for ongoing care. Tommy Velásquez MD Tommy Velásquez MD 05/09/2019 1:31:53 PM Electronically signed by Tommy Velásquez MD Number of Addenda: 0 Note Initiated On: 05/09/2019 1:04 PM Estimated Blood Loss: Estimated blood loss: none.
--- NOTE | 2019-05-09 13:33 | IPNPDOC ---
Text Note Date of Service The patient was seen on 05/09/19. NOTE Follow patients course, re-start diet once nausea subsides. If not able to adv ance consider small bowel follow through to rule out distal obstruction. She has been previously considered to have gastroparesis. Dr. Rivera has previously treated patient and familiar with her. If available suggest consultation with Dr. Rivera. She does not have any abdominal discomfort to suggest cholecystitis. would d/c antibiotics and just follow her course. VS,Fishbone, I+O VS, Fishbone, I+O Laboratory Tests 05/09/19 05:13 Red Blood Count 3.97 L, Mean Corpuscular Volume 89.9, Mean Corpuscular Hemoglobin 27.7, Mean Corpuscular Hemoglobin Concent 30.8 L, Red Cell Distribution Width 12.6, Neutrophils (%) (Auto) 77.1 H, Lymphocytes (%) (Auto) 1 3.0 L, Monocytes (%) (Auto) 6.3 H, Eosinophils (%) (Auto) 2.7, Basophils (%) (Auto) 0.5, Neutrophils # (Auto) 4.3, Lymphocytes # (Auto) 0.7 L, Monocytes # (Auto) 0.4, Eosinophils # (Auto) 0.2, Basophils # (Auto) 0.0, Calcium Level 8.0 L Vital Signs Date Time Temp Pulse Resp B/P (MAP) Pulse Ox O2 Delivery O2 Flow Rate FiO2 05/09/19 10:02 97.4 80 12 101/58 (72) 93 05/07/19 22:44 Room Air I&O- Last 24 Hours up to 6 AM 05/09/19 06:00 Intake Total 1210 ml Output Total 1850 ml Balance -640 ml ELADIO BALL MD May 09, 2019 13:33
[2019-05-09 14:15] VITALS: BP 130/71
[2019-05-09 18:11] VITALS: BP 118/60
[2019-05-09] MEDS: AMITRIPTYLINE 25 MG TAB PO SCH (20:05)
[2019-05-09] MEDS: **NOTE PATIENT COMMENT** MISC XX SCH (20:05)
[2019-05-09] MEDS: PARoxetine 20 MG TAB PO SCH (20:13)
[2019-05-09 22:00] VITALS: BP 135/71
[2019-05-09] MEDS ORDERED: diphenhydrAMINE INJ 50MG/ML VIAL (J1200) IV ONE (23:00)
[2019-05-10 02:00] VITALS: BP 136/72
[2019-05-10] MEDS: PIPERACILLIN/TAZOBACTAM SOD 2.25 GM in D5W MINI-BAG PLUS 50 ML IV SCH ×2 (02:01→08:22)
[2019-05-10] MEDS: NS 1,000 ML IV SCH (04:19)
[2019-05-10 06:00] VITALS: BP 134/72
[2019-05-10 07:05] LABS: BASO % 0.6 % (0.0-1.0); EOS # 0.2 10^3/uL (0.0-0.50); EOS % 4.1 % (0.0-3.0); HEMATOCRIT 34.7 % (36.0-47.0); LYMPH # 0.7 10^3/uL (1.5-4.5); LYMPH % 13.6 % (24.0-44.0); MEAN CORPUSCULAR HEMOGLOBIN 27.3 pg (27.0-33.0); MEAN CORPUSCULAR HGB CONC 31.7 g/dl (32.0-36.5); MEAN CORPUSCULAR VOLUME 86.1 fl (80.0-96.0); MONO # 0.4 10^3/uL (0.0-0.8); MONO % 7.7 % (0.0-5.0); NEUTROPHILS # 3.7 10^3/uL (1.8-7.7); NEUTROPHILS % 73.6 % (36.0-66.0); PLATELET COUNT, AUTOMATED 294 10^3/uL (150-450); RED BLOOD COUNT 4.03 10^6/uL (4.00-5.40); WHITE BLOOD COUNT 5.1 10^3/uL (4.0-10.0)
[2019-05-10 08:00] VITALS: BP 143/92
[2019-05-10 08:10] LABS: ALBUMIN 2.7 GM/DL (3.2-5.2); ALT/SGPT 13 U/L (12-78); BILIRUBIN,TOTAL 0.3 MG/DL (0.2-1.0); BLOOD UREA NITROGEN 4 MG/DL (7-18); CALCIUM LEVEL 8.5 MG/DL (8.8-10.2); CARBON DIOXIDE LEVEL 25 MEQ/L (21-32); CHLORIDE LEVEL 110 MEQ/L (98-107); CREATININE FOR GFR 0.68 MG/DL (0.55-1.30); GLOMERULAR FILTRATION RATE > 60.0 (>45); GLUCOSE, FASTING 98 MG/DL (70-100); MAGNESIUM LEVEL 1.7 MG/DL (1.8-2.4); SODIUM LEVEL 143 MEQ/L (136-145); TOTAL PROTEIN 5.8 GM/DL (6.4-8.2)
[2019-05-10 08:22] VITALS: BP 132/70
[2019-05-10] MEDS: METOPROLOL TART 25 MG TABLET PO SCH (08:22)
[2019-05-10] MEDS: PANTOPRAZOLE 40MG INJ (PROTONIX) (C9113) IV SCH (08:22)
[2019-05-10] MEDS: SUCRALFATE 1 GM TAB PO SCH ×2 (08:22→13:00)
[2019-05-10] MEDS: amLODIPine 5 MG TAB PO SCH (08:23)
[2019-05-10] MEDS: LIDOCAINE 5% (LIDODERM) PATCH TD SCH (08:23)
[2019-05-10] MEDS: LEVOTHYROXINE 100MCG TABLET (0.1MG) PO SCH (08:27)
[2019-05-10] MEDS: PARoxetine 20 MG TAB PO SCH (08:27)
[2019-05-10] MEDS: PROMETHAZINE INJ 25 MG/ML VIAL (J2550) IV PRN (10:02)
--- NOTE | 2019-05-10 10:25 | IPNPDOC ---
Text Note Date of Service The patient was seen on 05/10/19. NOTE Patient was seen and examined by me this morning. States that she's feeling be tter PHYSICAL EXAMINATION: General: The patient is awake, alert, oriented x3, sitting up in the bed in no apparent distress. Head and Neck Exam: Extraocular muscles intact. Pupils equally round and reactive to light. Mucous membranes are moist. Patient complaining of right- sided neck pain Neck is supple. There is no jugular venous distention (JVD). Cardiovascular: S1 and S2, regular rate. Trace edema of the bilateral lower extremities. Respiratory: Clear entry bilaterally. No rhonchi, no rales, no wheezing Abdomen: Soft. Mild right upper quadrant tenderness on deep palpation. Positiv e bowel sounds. No organomegaly. Genitourinary: Deferred Musculoskeletal: Clubbing of the fingernails, no cyanosis was noted. Central Nervous System : No focal deficit. Power is 5/5 in all extremities. Assessment and plan 1. Acute gastritis/peptic ulcer disease: Patient still continues to complain off nausea and retching which has now subsided. Does not complain of any diarrhea. Continue her protonics 40 twice a day. She got an endoscopy by surgery yesterday did not reveal any acute pathology or onset. We will escalate her that as she tolerates. Continue sucralfate 2. Concerns of acute cholecystitis. The patient got a ultrasound liver as well as CAT scan which shows that the patient has distended with some sludge and small stones. The patient has been seen by surgery. I spoke with them personally. Antibiotics DC'd Looks like it'll be only conservative management as the patient's presentation is not typical for cholecystitis 3. Hypertension: Continue when necessary medications. We'll optimize her blood pressure. 4. Hypothyroidism: Continue Synthroid 5. COPD. continue with other therapy as needed. 19. Oxygen of 92 by supplemental oxygen. DVT prophylaxis with SCDs. Disposition. Likely home in the next 24-48 hours once surgically cleared and had nausea has resolved and once she is tolerating diet VS,Fishbone, I+O VS, Fishbone, I+O Laboratory Tests 05/10/19 06:46 Red Blood Count 4.03, Mean Corpuscular Volume 86.1, Mean Corpuscular Hemoglobin 27.3, Mean Corpuscular Hemoglobin Concent 31.7 L, Red Cell Distribution Width 12.6, Neutrophils (%) (Auto) 73.6 H, Lymphocytes (%) (Auto) 13.6 L, Monocytes (%) (Auto) 7.7 H, Eosinophils (%) (Auto) 4.1 H, Basophils (%) (Auto) 0.6, Neutrophils # (Auto) 3.7, Lymphocytes # (Auto) 0.7 L, Monocytes # (Auto) 0.4, Eosinophils # (Auto) 0.2, Basophils # (Auto) 0.0, Calcium Level 8.5 L, Aspartate Amino Transf (AST/SGOT) 24, Alanine Aminotransferase (ALT/SGPT) 13, Alkaline Phosphatase 89, Total Bilirubin 0.3, Total Protein 5.8 #L, Albumin 2.7 L Vital Signs Date Time Temp Pulse Resp B/P (MAP) Pulse Ox O2 Delivery O2 Flow Rate FiO2 05/10/19 08:22 80 132/70 05/10/19 08:00 97.9 18 99 05/07/19 22:44 Room Air I&O- Last 24 Hours up to 6 AM 05/10/19 06:00 Intake Total 1780 ml Output Total 3395 ml Balance -1615 ml ANGELIQUE LAGUNAS MD May 10, 2019 10:25
--- NOTE | 2019-05-10 12:05 | DS.PDOC ---
Discharge Summary General Date of Admission May 08, 2019 at 02:33 Date of Discharge Today Discharge Summary Chief Complaint The patient is a 68-year-old female admitted with a reason for visit of Vomiting. History of Present Illness Patient is a 68-year-old female, past medical history significant for recurrent gastric ulcer status post gastric bypass surgery, cachexia, fatty liver disease, diverticulosis, presenting to the emergency room on account of intractable nausea, vomiting, diarrhea. Patient states she had not eaten anything because she had been feeling bad with neck pain and had been started on a patch for the neck pain. She suddenly developed nausea with vomiting, which has persisted unti l presentation to the emergency room tonight. CT abdomen and pelvis completed showed fatty liver, 5 mm cyst and superior medial segment 4A of left hepatic lobe and 11 mm cyst in posterior inferior segment 6 of right hepatic lobe, unchanged from prior CT scan completed 2016. Gallbladder was distended without wall thickening, pericholecystic fluid or pericholecystic inflammatory changes. There was also high attenuation material layering in the dependent part portion of the body of the gallbladder thought to possibly represent calculi, or sludge.she was admitted for possible Acute gastritis/peptic ulcer disease. Does not complain of any diarrhea, nausea and vomiting have subsided and she has been able to tolerate a diet. She got an endoscopy by surgery yesterday did not reveal any acute pathology or onset. Diet was escalated and she did well. For concerns of acute cholecystitis. The patient got a ultrasound liver as well as CAT scan which shows that the patient has distended with some sludge and small stones. The patient has been seen by surgery. I spoke with them personally. Antibiotics DC'd Looks like it'll be only conservative management as the patient's presentation is not typical for cholecystitis. This morning I spoke with the daughter and the patient in detail and they both want as she's feeling fine. Has been able to tolerate the diet and said that she will follow up with surgery and GI as outpatient PHYSICAL EXAMINATION: General: The patient is awake, alert, oriented x3, sitting up in the bed in no apparent distress. Head and Neck Exam: Extraocular muscles intact. Pupils equally round and reactive to light. Mucous membranes are moist. Patient complaining of right- sided neck pain Neck is supple. There is no jugular venous distention (JVD). Cardiovascular: S1 and S2, regular rate. Trace edema of the bilateral lower extremities. Respiratory: Clear entry bilaterally. No rhonchi, no rales, no wheezing Abdomen: Soft. Nontender, nondistended. Positive bowel sounds. No organomegaly. Genitourinary: Deferred Musculoskeletal: Clubbing of the fingernails, no cyanosis was noted. Central Nervous System : No focal deficit. Power is 5/5 in all extremities. Vital Signs Date Time Temp Pulse Resp B/P (MAP) Pulse Ox O2 Delivery O2 Flow Rate FiO2 05/10/19 08:22 80 132/70 05/10/19 08:00 97.9 92 18 143/92 (109) 99 05/10/19 06:00 97.8 84 18 134/72 (92) 94 05/10/19 02:00 97.7 78 18 136/72 (93) 95 05/09/19 22:00 97.9 82 18 135/71 (92) 96 05/09/19 20:05 86 135/71 05/09/19 18:12 97.8 84 99 05/09/19 18:11 97.8 85 16 118/60 (79) 99 05/09/19 14:15 97.4 93 16 130/71 (90) 98 05/09/19 13:30 97.0 88 94/50 (65) 100 Intake & Output 05/10/19 06:00 Intake Total 1780 ml Output Total 3395 ml Balance -1615 ml Laboratory Tests 05/10/19 06:44: Procalcitonin [Pending] 05/10/19 06:46: White Blood Count 5.1, Red Blood Count 4.03, Hemoglobin 11.0L, Hematocrit 34.7L, Mean Corpuscular Volume 86.1, Mean Corpuscular Hemoglobin 27.3, Mean Corpuscular Hemoglobin Concent 31.7L, Red Cell Distribution Width 12.6, Platelet Count 294, Neutrophils (%) (Auto) 73.6H, Lymphocytes (%) (Auto) 13.6L, Monocytes (%) (Auto) 7.7H, Eosinophils (%) (Auto) 4.1H, Basophils (%) (Auto) 0.6, Neutrophils # (Auto) 3.7, Lymphocytes # (Auto) 0.7L, Monocytes # (Auto) 0.4, Eosinophils # (Auto) 0.2, Basophils # (Auto) 0.0, Immature Granulocyte % (Auto) 0.4, Nucleated Red Blood Cells % (auto) 0.0, Blood Urea Nitrogen 4L, Creatinine 0.68, Sodium Level 143, Potassium Level 4.0#, Chloride Level 110H, Carbon Dioxide Level 25, Calcium Level 8.5L, Aspartate Amino Transf (AST/SGOT) 24, Alanine Aminotransferase (ALT/SGPT) 13, Alkaline Phosphatase 89, Total B ilirubin 0.3, Total Protein 5.8#L, Albumin 2.7L, Anion Gap 8, Glomerular Filtration Rate > 60.0, Fasting Glucose 98, Magnesium Level 1.7L, Albumin/Globulin Ratio 0.87L Current Medications Medications (Trade) Dose Ordered Sig/[place] Route PRN Reason Start Time Stop Time Status Last Admin Dose Admin Acetaminophen (Tylenol Tab) 1,000 mg Q6H PRN PO PAIN OR FEVER 05/08/19 02:00 05/09/19 18:27 1,000 MG Amitriptyline HCl (Elavil) 25 mg QHS PO 05/08/19 21:00 05/09/19 20:05 25 MG Amlodipine Besylate (Norvasc) 5 mg DAILY PO 05/08/19 09:00 05/10/19 08:23 5 MG Levothyroxine Sodium (Synthroid) 100 mcg DAILY PO 05/08/19 09:00 05/10/19 08:27 100 MCG Lidocaine (Lidoderm Patch) 1 patch DAILY TD 05/08/19 03:45 05/08/19 04:17 1 PATCH Metoprolol Tartrate (Lopressor) 25 mg BID PO 05/08/19 09:00 05/10/19 08:22 25 MG Morphine Sulfate (Morphine Sulfate Inj) 1 mg Q6HP PRN IV PAIN 05/08/19 14:30 05/09/19 04:36 1 MG Non-Formulary Medication ( See Comment Field Below ) REMOVE LIDODERM PATCH DAILY@21 XX 05/08/19 21:00 05/08/19 20:32 1 Ondansetron HCl (ZOFRAN INJection) 4 mg Q4HP PRN IV NAUSEA OR VOMITING 05/08/19 02:00 05/08/19 07:33 4 MG Pantoprazole Sodium (Protonix) 40 mg BID IV 05/08/19 09:00 05/10/19 08:22 40 MG Paroxetine HCl (PAXil) 20 mg DAILY PO 05/09/19 20:15 05/10/19 08:27 20 MG Piperacillin Sod/ Tazobactam Sod 2.25 gm/Dextrose 50 ml @ 100 mls/hr Q6H IV 05/08/19 08:00 05/10/19 08:22 100 MLS/HR Promethazine HCl (PHENERGAN INJection) 12.5 mg Q6HP PRN IV NAUSEA 05/08/19 11:15 05/10/19 10:02 12.5 MG Sodium Chloride 1,000 ml @ 50 mls/hr Q20H IV 05/08/19 02:19 05/10/19 04:19 50 MLS/HR Sucralfate (Carafate) 1 gm QID PO 05/08/19 09:00 05/10/19 08:22 1 GM Dictations. As per discharge reconciliation medication list Activity as tolerated Diet. BRAT Follow-up appointments. PCP in 1 week, surgery in 1 week. Condition on discharge. Patient is medically optimized for discharge Discharge disposition: Home Total time spent on this discharge including coordination of care, review of chart documentation and extubation contact is around 35 minutes Vital Signs/I&Os Vital Signs Date Time Temp Pulse Resp B/P (MAP) Pulse Ox O2 Delivery O2 Flow Rate FiO2 05/10/19 08:22 80 132/70 05/10/19 08:00 97.9 18 99 05/07/19 22:44 Room Air I&O- Last 24 Hours up to 6 AM 05/10/19 06:00 Intake Total 1780 ml Output Total 3395 ml Balance -1615 ml Laboratory Data Labs 24H Laboratory Tests 2 05/10/19 06:44: 05/10/19 06:46: Immature Granulocyte % (Auto) 0.4, White Blood Count 5.1, Red Blood Count 4.03, Hemoglobin 11.0L, Hematocrit 34.7L, Mean Corpuscular Volume 86.1, Mean Corpuscular Hemoglobin 27.3, Mean Corpuscular Hemoglobin Concent 31.7L, Red Cell Distribution Width 12.6, Platelet Count 294, Neutrophils (%) (Auto) 73.6H, Lymphocytes (%) (Auto) 13.6L, Monocytes (%) (Auto) 7.7H, Eosinophils (%) (Auto) 4.1H, Basophils (%) (Auto) 0.6, Neutrophils # (Auto) 3.7, Lymphocytes # (Auto) 0.7L, Monocytes # (Auto) 0.4, Eosinophils # (Auto) 0.2, Basophils # (Auto) 0.0, Nucleated Red Blood Cells % (auto) 0.0, Anion Gap 8, Glomerular Filtration Rate > 60.0, Blood Urea Nitrogen 4L, Creatinine 0.68, Sodium Level 143, Potassium Level 4.0#, Chloride Level 110H, Carbon Dioxide Level 25, Calcium Level 8.5L, Aspartate Amino Transf (AST/SGOT) 24, Alanine Aminotransferase (ALT/SGPT) 13, Alkaline Phosphatase 89, Total Bilirubin 0.3, Total Protein 5.8#L, Albumin 2.7L, Magnesium Level 1.7L, Albumin/Globulin Ratio 0.87L CBC/BMP Laboratory Tests 05/10/19 06:46 Red Blood Count 4.03, Mean Corpuscular Volume 86.1, Mean Corpuscular Hemoglobin 27.3, Mean Corpuscular Hemoglobin Concent 31.7 L, Red Cell Distribution Width 12.6, Neutrophils (%) (Auto) 73.6 H, Lymphocytes (%) (Auto) 13.6 L, Monocytes (%) (Auto) 7.7 H, Eosinophils (%) (Auto) 4.1 H, Basophils (%) (Auto) 0.6, Neutrophils # (Auto) 3.7, Lymphocytes # (Auto) 0.7 L, Monocytes # (Auto) 0.4, Eosinophils # (Auto) 0.2, Basophils # (Auto) 0.0, Calcium Level 8.5 L, Aspartate Amino Transf (AST/SGOT) 24, Alanine Aminotransferase (ALT/SGPT) 13, Alkaline Phosphatase 89, Total Bilirubin 0.3, Total Protein 5.8 #L, Albumin 2.7 L Microbiology Microbiology 05/08/19 Blood Culture - Preliminary, Resulted No Growth after 48 hours. All Specime... 05/08/19 Blood Culture - Preliminary, Resulted No Growth after 48 hours. All Specime... Discharge Medications Scheduled Amitriptyline HCl (Amitriptyline HCl) 25 Mg Tab, 25 MG PO QHS, (Reported) Amlodipine Besylate (Amlodipine Besylate) 5 Mg Tab, 5 MG PO DAILY, (Reported) Levothyroxine Sodium (Levoxyl) 100 Mcg Tab, 100 MCG PO DAILY, (Reported) Metoprolol Tartrate (Metoprolol Tartrate) 25 Mg Tab, 25 MG PO BID, (Reported) Omeprazole (Omeprazole) 40 Mg Cap, 40 MG PO QHS, (Reported) Paroxetine HCl (Paroxetine HCl) 20 Mg Tab, 20 MG PO DAILY, (Reported) Scheduled PRN Acetaminophen (Acetaminophen) 500 Mg Tab, 1,000 MG PO Q6H PRN for PAIN OR FEVER, (Reported) Albuterol Sulfate (Proair Hfa) 8.5 Gm Hfa.aer.ad, 2 PUFF INH Q4H PRN for SHORTNESS OF BREATH, (Reported) Ondansetron (Ondansetron Odt) 4 Mg Tab, 4 MG PO Q4H PRN for NAUSEA, (Reported) Tramadol HCl (Tramadol HCl) 50 Mg Tab, 50 MG PO Q6H PRN for PAIN, (Reported) Allergies Coded Allergies: NSAIDS (Non-Steroidal Anti-Inflamma (Verified Adverse Reaction, Intermediate, D/T STOMACH, 05/07/19) ANGELIQUE LAGUNAS MD May 10, 2019 12:05
--- NOTE | 2019-05-10 16:48 | IPN ---
DATE: 05/10/2019 HISTORY: Patient was hospitalized on 05/08/2019 with a history of nausea and vomiting. She was seen in consultation by surgery as she is status post significant gastric surgery previously. There was a question of whether her problems may have related to gallbladder issues, but Dr. Velásquez did not feel this was the case. She underwent an upper endoscopy, which showed no evidence of any esophagitis or gastritis. She was subsequently advanced onto a diet which she has tolerated well. Vital signs shows that she has been afebrile over the past 24 hours, with a pulse in the 70s to 80s and a good blood pressure. Intake and output shows that yesterday she had 2190 in, with 2800 out. She has been having a brisk urine output and has had several bowel movements and is voiding well. EXAMINATION: Patient is lying quietly on the hospital bed and looks quite comfortable and denies any pain. IMPRESSION: Patient has apparently resolved her nausea and vomiting. She denies any abdominal pain currently. RECOMMENDATIONS: Patient can be discharged when medically stable. She can follow up in general surgery as needed.
== END 2019-05-10 13:20 | disposition home or self-care (01) | DRG 392 ==
LOC: M ED 22:14 → M ED INP 05-08 02:33 → M MS5PR 05-08 03:10
PROVIDERS: ADMIT Internal Medicine; ATTEND Internal Medicine
PROC: 0DJ08ZZ Inspection of Upper Intestinal Tract, Via Natural or Artificial Opening Endoscopic (ICD-10-PCS; principal; 2019-05-09 12:30)
DX: K29.00 Acute gastritis without bleeding (principal); K80.20 Calculus of gallbladder without cholecystitis without obstruction; J44.9 Chronic obstructive pulmonary disease, unspecified; E89.0 Postprocedural hypothyroidism; K76.0 Fatty (change of) liver, not elsewhere classified; F32.9 Major depressive disorder, single episode, unspecified; I10 Essential (primary) hypertension; R63.0 Anorexia; Z79.899 Other long term (current) drug therapy; Z88.6 Allergy status to analgesic agent

== ENCOUNTER 2019-06-26 07:14 | Day surgery (SDC) | payer MEDICARE ==
[~2019-06-26] VITALS: Ht 152.4 cm; Wt 49.0 kg
[~2019-06-26 07:14] MED LIST changes: +LIDOCAINE 1% MDV 20ML VIAL SQ PRN; +LR 1,000 ML IV ONE; +PROM25TA12 PO
[2019-06-26] MEDS ORDERED: BUPIVACAINE HCL 0.25% 30 ML VIAL As Ordered ONE (08:57)
[2019-06-26] MEDS ORDERED: SCOPOLAMINE 1MG TRANSDERMAL PATCH TOP ONE (09:15)
[2019-06-26] MEDS ORDERED: LIDOCAINE 2% INJ 100 MG/5 ML SDV (FOR ANES.) As Ordered ONE (09:28)
[2019-06-26] MEDS ORDERED: PROPOFOL 200 MG/20 ML VIAL As Ordered ONE (09:28)
[2019-06-26] MEDS ORDERED: dexameTHASONE 4 MG/ML 1ML VIAL (J1100) As Ordered ONE (09:28)
[2019-06-26] MEDS ORDERED: MIDAZOLAM INJ 2 MG/2 ML VIAL (J2250) As Ordered ONE (09:28)
[2019-06-26] MEDS ORDERED: fentaNYL 250 MCG/5 ML INJECTION (J3010) As Ordered ONE (09:28)
[2019-06-26] MEDS ORDERED: PROPOFOL 500 MG/50 ML VIAL As Ordered ONE ×2 (09:28→10:07)
[2019-06-26] MEDS ORDERED: ONDANSETRON 4MG/2ML VIAL (J2405) As Ordered ONE ×2 (09:28→13:04)
[2019-06-26] MEDS ORDERED: ROCURONIUM BROMIDE 50 MG/5 ML VIAL As Ordered ONE ×2 (09:28→10:19)
[2019-06-26] MEDS ORDERED: PHENYLephrine HCL 500 MCG/5 ML (100MCG/ML) SYRINGE (J2370) As Ordered ONE (09:29)
[2019-06-26] MEDS ORDERED: PHENYLEPHRINE INJ 10MG/ML VIAL (J2370) As Ordered ONE (09:39)
[2019-06-26] MEDS ORDERED: ePHEDrine SULFATE 25 MG/5 ML(5MG/ML) SYRINGE As Ordered ONE (09:41)
[2019-06-26] MEDS ORDERED: ACETAMINOPHEN 1000MG 100ML IV BTL (OFIRMEV) (J0131 PER 10MG) As Ordered ONE (09:44)
[2019-06-26] MEDS ORDERED: METOCLOPRAMIDE INJ 10MG/2ML VIAL (J2765) As Ordered ONE (09:58)
[2019-06-26] MEDS ORDERED: SUGAMMADEX SODIUM 500 MG/5 ML VIAL (BRIDION) As Ordered ONE (10:58)
[2019-06-26] MEDS ORDERED: HYDROMORPHONE HCL 0.5 MG/ 0.5 ML SYRINGE (J1170 PER 1) IV PRN (12:00)
[2019-06-26] MEDS ORDERED: LR 1,000 ML IV SCH (12:00)
[2019-06-26] MEDS ORDERED: PERCOCET 5MG/325MG TAB PO PRN (12:00)
[2019-06-26] MEDS ORDERED: ONDANSETRON 4MG/2ML VIAL (J2405) IV PRN (12:00)
[2019-06-26] MEDS: fentaNYL 100 MCG/2 ML INJECTION (J3010) IV PRN ×2 (12:20→13:26)
[2019-06-26] MEDS ORDERED: ACETAMINOPHEN TAB 650MG DOSE (2X325MG) PO PRN (13:01)
[2019-06-26] MEDS ORDERED: NORCO, ANEXSIA 5/325MG TABLET (HYDROcodone/ACETAMINOPHEN) PO PRN (13:01)
[2019-06-26 14:55] VITALS: BP 109/65
--- NOTE | 2019-06-28 13:01 | RO ---
DATE OF PROCEDURE: 06/26/2019 PREOPERATIVE DIAGNOSIS: Symptomatic gallstones. POSTOPERATIVE DIAGNOSIS: Symptomatic gallstones with extensive adhesions. PROCEDURE PERFORMED: Laparoscopic cholecystectomy with extensive lysis of adhesions. SURGEON: Dr. Gaona ANESTHESIA: General. INDICATIONS FOR PROCEDURE: Patient is a 68-year-old woman who had undergone a partial gastrectomy for chronic peptic ulcer disease many years ago. 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 Recently she has had some persistent nausea and some fullness in the upper abdomen. She was found to have cholelithiasis and is now for a laparoscopic cholecystectomy. She was counseled that she might well have extensive adhesions from her prior gastric surgeries and require conversion to an open procedure. OPERATIVE PROCEDURE: The patient was placed supine on the operating table. She was placed under general endotracheal anesthesia. The patient's abdomen was prepped and draped in a sterile fashion. Patient is small framed and quite thin. She had a long midline incision extending from the xyphoid down to the pubis. Initial entry was in the right side of the abdomen, fairly lateral and perhaps 6-8 cm below the costal margin. Local anesthesia was achieved with 0.25% Marcaine and a Veress needle was inserted. After positive hanging drop test, the abdomen was insufflated with carbon dioxide gas. A 5-mm port was placed over the 30 degrees scope and this was advanced through the abdominal wall without difficulty. Initial examination showed some fairly significant adhesions along the midline and adjacent to the falciform ligament. There were fairly extensive adhesions surrounding and what appeared to be a somewhat distended gallbladder. A second 5 mm port was placed slightly more medial and lower in the abdomen in the right lower quadrant. Cauterizing scissors were used to divide the adhesions to the anterior abdominal wall. A loop of small bowel was found adherent into the adhesions at the falciform ligament. A very small superficial burn of the serosa occurred, but on further examination this did not appear to require any treatment. The adhesions were divided along the midline to allow placement of additional trocars. A third 5 mm trocar was placed along the midline higher up toward the epigastrium and a fourth 5 mm trocar was placed between the midline port and the more medial of the lower quadrant ports as well. With these four ports to proceed, the fundus of the gallbladder was identified and grasped and elevated slightly. Adhesions of the omentum were peeled away with care to cauterize any overlying vessels. The gallbladder was gradually peeled up out of the adhesions in the subhepatic space and elevated above the liver. Dissection proceeded. There was a portion of a presumably the duodenum that had become adherent to the region of the neck of the gallbladder and this was carefully peeled away by dividing the adhesions. The neck of the gallbladder was therefore clearly identified. Dissection then proceeded at the neck of the gallbladder. The cystic duct was clearly identified and this was doubly clipped with hemoclips and divided. The dissection proceeded through the surrounding pericholecystic tissues. No definite cholecystic artery was identified. The gallbladder was dissected free from the gallbladder bed using cautery dissection and the gallbladder was not perforated in the course of dissection. The gallbladder was set aside and the right upper quadrant was irrigated and inspected. Several small bleeding points in the adhesions below the liver were identified and these were controlled with cautery. The area was irrigated and inspected and there was no evidence of any further bleeding. There was no bile leak. The medial right lower quadrant port was converted from a number 5 to an 11 and an Endopouch was inserted and the gallbladder placed within the pouch. The abdomen was then deflated and the trocars were all removed. The incision at the removal site was extended somewhat and the anterior fascia of the rectus sheath was opened transversely. The gallbladder was delivered through the muscle by dilating the posterior rectus sheath as well. Gallbladder was passed for permanent pathology. The posterior tissues of the rectus sheath were approximated with 2-0 Vicryl. The anterior sheath was then also closed with interrupted simple sutures of 2-0 Vicryl. The skin incisions were all closed with buried 5-0 Vicryl and Steri-Strips. Light dressings were applied. The patient tolerated the procedure well without apparent complication. She was awakened in the operating room, extubated and moved to the recovery room in stable condition.
== END 2019-06-26 15:17 | disposition home or self-care (01) ==
LOC: M SDC 07:14
PROVIDERS: ATTEND Surgery
DX: K80.10 Calculus of gallbladder with chronic cholecystitis without obstruction (principal); N73.6 Female pelvic peritoneal adhesions (postinfective); I10 Essential (primary) hypertension; M81.0 Age-related osteoporosis without current pathological fracture; J44.9 Chronic obstructive pulmonary disease, unspecified; Z92.3 Personal history of irradiation; E03.9 Hypothyroidism, unspecified; F32.9 Major depressive disorder, single episode, unspecified; Z79.899 Other long term (current) drug therapy
CPT/HCPCS: 47562; 49329; 88304; J0131; J1100; J2250; J2370; J2405; J2765; J3010

== ENCOUNTER 2019-10-12 08:32 | Emergency (ER) | payer MEDICARE ==
[~2019-10-12] VITALS: Ht 152.4 cm; Wt 52.7 kg
[~2019-10-12 08:32] MED LIST changes: -LIDOCAINE 1% MDV 20ML VIAL SQ PRN; -LR 1,000 ML IV ONE; -OMEP40CA2 PO; +OMEP40CA97 PO
[2019-10-12] MEDS ORDERED: BREO1INH (08:46)
[2019-10-12] MEDS ORDERED: predniSONE 20 MG TAB PO ONE (09:45)
[2019-10-12 10:07] LABS: BASO # 0.1 10^3/uL (0.0-0.2); BASO % 0.6 % (0.0-1.0); EOS # 0.5 10^3/uL (0.0-0.5); EOS % 5.4 % (0.0-3.0); HEMATOCRIT 43.4 % (36.0-47.0); HEMOGLOBIN 13.5 g/dl (12.0-15.5); LYMPH # 1.5 10^3/uL (1.5-5.0); LYMPH % 15.1 % (24.0-44.0); MEAN CORPUSCULAR HEMOGLOBIN 27.4 pg (27.0-33.0); MEAN CORPUSCULAR HGB CONC 31.1 g/dl (32.0-36.5); MEAN CORPUSCULAR VOLUME 88.2 fl (80.0-96.0); MONO # 0.9 10^3/uL (0.0-0.8); MONO % 8.8 % (0.0-5.0); NEUTROPHILS # 6.8 10^3/uL (1.5-8.5); NEUTROPHILS % 69.7 % (36.0-66.0); PLATELET COUNT, AUTOMATED 285 10^3/uL (150-450); RED BLOOD COUNT 4.92 10^6/uL (4.00-5.40); WHITE BLOOD COUNT 9.8 10^3/uL (4.0-10.0)
[2019-10-12 10:26] LABS: ERYTHROCYTE SEDIMENTATION RATE 22 mm/hr (0-30)
[2019-10-12 10:38] LABS: BLOOD UREA NITROGEN 15 MG/DL (7-18); C REACTIVE PROTEIN QUANTITATIV 0.35 MG/DL (0.00-0.30); CALCIUM LEVEL 8.7 MG/DL (8.8-10.2); CARBON DIOXIDE LEVEL 32 MEQ/L (21-32); CHLORIDE LEVEL 104 MEQ/L (98-107); CREATININE FOR GFR 0.92 MG/DL (0.55-1.30); GLOMERULAR FILTRATION RATE > 60.0 (>45); GLUCOSE, FASTING 104 MG/DL (70-100); POTASSIUM SERUM 3.9 MEQ/L (3.5-5.1); SODIUM LEVEL 142 MEQ/L (136-145); URIC ACID 5.4 MG/DL (2.6-6.0)
[2019-10-12] MEDS ORDERED: PRED20TA PO (11:27)
[2019-10-12] MEDS ORDERED: NORCO, ANEXSIA 5/325MG TABLET (HYDROcodone/ACETAMINOPHEN) PO ONE (11:30)
[2019-10-12 11:33] VITALS: BP 135/84
== END 2019-10-12 11:35 | disposition home or self-care (01) ==
LOC: M ED 08:32
DX: M10.072 Idiopathic gout, left ankle and foot (principal); Z88.8 Allergy status to other drugs, medicaments and biological substances; Z79.899 Other long term (current) drug therapy

== ENCOUNTER 2020-02-23 22:40 | Emergency (ER) | payer MEDICARE ==
[~2020-02-23] VITALS: Ht 152.4 cm; Wt 55.7 kg
[~2020-02-23 22:40] MED LIST changes: +BREO1INH INH; +PARO40TA3 PO; +PERCOCET PO; +PRED20TA PO; +XARE10TA PO
[2020-02-23 23:01] VITALS: BP 153/67
== END 2020-02-23 23:51 | disposition home or self-care (01) ==
LOC: M ED 22:40 → EDBD 22:40 → EDSEX 22:40 → M ED 23:51
DX: Z46.89 Encounter for fitting and adjustment of other specified devices (principal); I10 Essential (primary) hypertension; K21.9 Gastro-esophageal reflux disease without esophagitis; F32.9 Major depressive disorder, single episode, unspecified; Z88.6 Allergy status to analgesic agent; Z79.899 Other long term (current) drug therapy; Z79.51 Long term (current) use of inhaled steroids

== ENCOUNTER → 2020-06-23 | Outpatient (CLI) | payer MEDICARE ==
[~2020-06-23] MED LIST changes: +AMLO1TAB24 PO; -AMLO5TAB6 PO
--- NOTE | 2020-07-04 16:11 | REP ---
LEFT KNEE SERIES: 5-VIEWS HISTORY: Pain in the left knee. COMPARISON: Left tib-fib radiographs from 11/18/2019. FINDINGS: Five views of the left knee demonstrate medial and lateral chondrocalcinosis. There is diffuse osteopenia. There is no evidence of fracture or subluxation. No erosive change is seen. No evidence of joint effusion. IMPRESSION: Diffuse osteopenia. Chondrocalcinosis. Mild vascular calcification. No acute abnormality. MTDD
== END ==
LOC: M WUC 15:34
PROVIDERS: ATTEND Internal Medicine
DX: M25.562 Pain in left knee (principal); M85.862 Other specified disorders of bone density and structure, left lower leg; M11.162 Familial chondrocalcinosis, left knee

== ENCOUNTER 2021-02-13 10:37 | Emergency (ER) | payer MEDICARE ==
[~2021-02-13] VITALS: Ht 152.4 cm; Wt 55.4 kg
[~2021-02-13 10:37] MED LIST changes: -AMIT25TA PO; +AMIT25TA17 PO
[2021-02-13] MEDS ORDERED: KETOROLAC 60MG 2ML VIAL IM ONE (11:55)
[2021-02-13] MEDS ORDERED: CYCLOBENZAPRINE 5MG TABLET PO ONE (12:15)
--- NOTE | 2021-02-13 12:22 | REP ---
INDICATION: fell/hit head/vomiting. COMPARISON: None. TECHNIQUE: Axial CT images with multiplanar reformations. FINDINGS: No acute bleed or acute large vessel territorial infarct. No fracture. Ventricles, cisterns and sulci within normal limits for age. No mass effect or midline shift. No abnormal fluid collections. Paranasal sinuses and mastoid air cells are clear. IMPRESSION: No acute findings. Age-related volume loss. <Electronically signed by Kyle Smith > 02/13/21 [id number]
--- NOTE | 2021-02-13 12:29 | REP ---
INDICATION: fell/pain. COMPARISON: None. TECHNIQUE: Three views sacrum and coccyx. FINDINGS: There is no radiographic evidence of fracture or dislocation. The visualized osseous structures appear intact. Metallic prosthesis is seen in the proximal right femur. IMPRESSION: No radiographic evidence of acute fracture or dislocation. <Electronically signed by Jeffrey Velez > 02/13/21 [id number]
[2021-02-13] MEDS ORDERED: ROBA750T4 PO (12:43)
[2021-02-13] MEDS ORDERED: PRED20TA PO (12:43)
[2021-02-13 12:48] VITALS: BP 118/82
== END 2021-02-13 12:52 | disposition home or self-care (01) ==
LOC: M ED 10:37
DX: S39.012A Strain of muscle, fascia and tendon of lower back, initial encounter (principal); W10.9XXA Fall (on) (from) unspecified stairs and steps, initial encounter; Y92.9 Unspecified place or not applicable; Y93.9 Activity, unspecified; Y99.9 Unspecified external cause status; I10 Essential (primary) hypertension; F32.9 Major depressive disorder, single episode, unspecified; K21.9 Gastro-esophageal reflux disease without esophagitis; K52.9 Noninfective gastroenteritis and colitis, unspecified; J44.9 Chronic obstructive pulmonary disease, unspecified; E03.9 Hypothyroidism, unspecified; M54.2 Cervicalgia; Z79.899 Other long term (current) drug therapy; Z88.6 Allergy status to analgesic agent
CPT/HCPCS: 70450; 72220; 96372; 99283; J1885

== ENCOUNTER 2021-04-25 16:20 | Emergency (ER) | payer MEDICARE ==
[~2021-04-25] VITALS: Ht 152.4 cm; Wt 54.5 kg
[~2021-04-25 16:20] MED LIST changes: +OMEP40CA4 PO; -OMEP40CA97 PO; +ROBA750T4 PO
--- NOTE | 2021-04-25 17:23 | REP ---
INDICATION: fall, unable to bear weight. COMPARISON: None TECHNIQUE: AP pelvis and two views of the left hip FINDINGS: AP pelvis: There has been a total right hip prosthetic device placement. There is no evidence of an acute fracture, dislocation, or subluxation. Two views left hip show asymmetric hip joint space narrowing with femoral head marginal osteophyte formation. There is no acute fracture, dislocation, or subluxation. IMPRESSION: Chronic changes as described above. <Electronically signed by Bertin Rincon > 04/25/21 [id number]
[2021-04-25] MEDS ORDERED: methocarbamoL 500 MG TAB PO ONE (18:30)
[2021-04-25] MEDS ORDERED: NORCO, ANEXSIA 5/325MG TABLET (HYDROcodone/ACETAMINOPHEN) PO ONE (18:30)
--- NOTE | 2021-04-25 19:41 | REP ---
INDICATION: tripped/pain. Two views of the left femur COMPARISON: None. TECHNIQUE: The proximal portion of the left femur was obtained earlier today on a two view examination of the left hip. FINDINGS: There is no acute fracture or destructive osseous lesion. There are degenerative changes seen at the knee. IMPRESSION: No acute abnormality. <Electronically signed by Bertin Rincon > 04/25/211937
[2021-04-25] MEDS ORDERED: MORPHINE 4 MG/ML 1ML VIAL/SYRINGE (J2270) IV ONE (20:05)
--- NOTE | 2021-04-25 20:55 | REPVR ---
PROCEDURE INFORMATION: Exam: CT Left Lower Extremity Without Contrast; Thigh Exam date and time: 04/25/2021 8:31 PM Age: 70 years old Clinical indication: Pain; Thigh; Left; Additional info: Neg x-ray/pt states cannot stand TECHNIQUE: Imaging protocol: CT of the Left lower extremity without contrast was performed. Exam focused on the thigh. Radiation optimization: All CT scans at this facility use at least one of these dose optimization techniques: automated exposure control; mA and/or kV adjustment per patient size (includes targeted exams where dose is matched to clinical indication); or iterative reconstruction. COMPARISON: 1. CR Femur LEFT 04/25/2021 6:32 PM 2. CR Hip,AP,LAT to include Pelvis LEFT 04/25/2021 4:47:33 PM FINDINGS: Bones/joints: There is an acute, complete, impacted, mildly displaced Garden type 3 fracture of the left femoral head neck junction. There is chondrocalcinosis involving the left hip. Degenerative changes of the pubic symphysis are present. There is tricompartmental osteoarthritis and chondrocalcinosis involving the left knee. A trace amount of fluid is present in the left knee joint. Soft tissues: Unremarkable. No soft tissue fluid collection. No left inguinal hernia. Bowel: There is sigmoid diverticulosis. The bowel was not fully imaged. Reproductive: There are punctate calcifications in anteverted uterus. The reproductive organs were not fully imaged. IMPRESSION: Acute, complete, impacted, mildly displaced Garden type 3 left subcapital femur fracture. Electronically signed by: Vinny Trevino On 04/25/2021 20:55:06 PM
[2021-04-25] MEDS ORDERED: HYDROMORPHONE HCL 0.5 MG/ 0.5 ML SYRINGE (J1170 PER 1) IV ONE (21:35)
[2021-04-25] MEDS ORDERED: METH-1165 PO (21:53)
[2021-04-25 23:32] LABS: RSV AMPLIFICATION NEGATIVE (NEGATIVE)
[2021-04-25 23:50] VITALS: BP 157/100
== END 2021-04-25 23:54 | disposition short-term general hospital (02) ==
LOC: M ED 16:20
DX: S72.012A Unspecified intracapsular fracture of left femur, initial encounter for closed fracture (principal); W01.0XXA Fall on same level from slipping, tripping and stumbling without subsequent striking against object, initial encounter; Y92.019 Unspecified place in single-family (private) house as the place of occurrence of the external cause; Y93.9 Activity, unspecified; Y99.9 Unspecified external cause status; I10 Essential (primary) hypertension; K21.9 Gastro-esophageal reflux disease without esophagitis; J44.9 Chronic obstructive pulmonary disease, unspecified; E03.9 Hypothyroidism, unspecified; E87.6 Hypokalemia; F32.9 Major depressive disorder, single episode, unspecified; M54.2 Cervicalgia; Z88.6 Allergy status to analgesic agent; Z79.899 Other long term (current) drug therapy
CPT/HCPCS: 51702; 73502; 73552; 73700; 87631; 96374; 96375; 99285; J1170; J2270

== ENCOUNTER → 2021-07-01 | Outpatient (CLI) | payer MEDICARE ==
[~2021-07-01] MED LIST changes: +METH-1165 PO
[2021-07-01 16:11] LABS: BASO % 0.7 % (0.0-1.0); EOS # 0.2 10^3/uL (0.0-0.5); HEMOGLOBIN 11.8 g/dl (12.0-15.5); LYMPH # 1.1 10^3/uL (1.5-5.0); LYMPH % 18.3 % (24.0-44.0); MEAN CORPUSCULAR HEMOGLOBIN 28.3 pg (27.0-33.0); MEAN CORPUSCULAR HGB CONC 31.1 g/dl (32.0-36.5); MEAN CORPUSCULAR VOLUME 91.1 fl (80.0-96.0); MONO # 0.6 10^3/uL (0.0-0.8); MONO % 9.3 % (2.0-8.0); NEUTROPHILS % 67.2 % (36.0-66.0); PLATELET COUNT, AUTOMATED 375 10^3/uL (150-450); RED BLOOD COUNT 4.17 10^6/uL (4.00-5.40)
[2021-07-01 17:50] LABS: ERYTHROCYTE SEDIMENTATION RATE 45 mm/hr (0-30)
== END ==
LOC: M WUC 11:40
PROVIDERS: ATTEND Orthopaedic Surgery
DX: S72.002D Fracture of unspecified part of neck of left femur, subsequent encounter for closed fracture with routine healing (principal); W18.30XD Fall on same level, unspecified, subsequent encounter; Y92.009 Unspecified place in unspecified non-institutional (private) residence as the place of occurrence of the external cause

== ENCOUNTER 2021-07-29 14:34 | Inpatient (IN) | payer MEDICARE ==
[~2021-07-29] VITALS: Ht 152.4 cm; Wt 51.0 kg
[~2021-07-29 14:34] MED LIST changes: -SCOP1PAT2 TOP; +TRAN1DIS4 TOP
--- NOTE | 2021-07-29 15:41 | REP ---
INDICATION: fever. COMPARISON: Comparison study November 17, 2019. TECHNIQUE: Portable sitting AP chest x-ray. FINDINGS: EKG electrodes are seen. The lungs are symmetrically aerated. No infiltrate is seen. There is bilateral perihilar linear fibrotic change. Pleural angles are sharp. Right hemidiaphragm is slightly elevated. Pulmonary vasculature is not increased. There is diffuse osteopenia. No acute bony abnormality. IMPRESSION: No focal infiltrate seen. Slightly elevated right hemidiaphragm. Mild perihilar fibrosis. <Electronically signed by Victorino Crow > 07/29/21 [id number]
[2021-07-29 16:06] LABS: BASO % 0.2 % (0.0-1.0); EOS % 0.2 % (0.0-3.0); HEMATOCRIT 38.4 % (36.0-47.0); HEMOGLOBIN 12.3 g/dl (12.0-15.5); LYMPH # 0.7 10^3/uL (1.5-5.0); LYMPH % 3.7 % (24.0-44.0); MEAN CORPUSCULAR HEMOGLOBIN 27.3 pg (27.0-33.0); MEAN CORPUSCULAR VOLUME 85.3 fl (80.0-96.0); MONO # 1.1 10^3/uL (0.0-0.8); NEUTROPHILS # 15.9 10^3/uL (1.5-8.5); NEUTROPHILS % 89.2 % (36.0-66.0); PLATELET COUNT, AUTOMATED 252 10^3/uL (150-450); WHITE BLOOD COUNT 17.8 10^3/uL (4.0-10.0)
[2021-07-29] MEDS ORDERED: ACETAMINOPHEN TAB 650MG DOSE (2X325MG) PO ONE (16:15)
[2021-07-29 16:35] LABS: BLOOD UREA NITROGEN 9 MG/DL (7-18); C REACTIVE PROTEIN QUANTITATIV 6.12 MG/DL (0.00-0.30); CALCIUM LEVEL 8.4 MG/DL (8.8-10.2); CARBON DIOXIDE LEVEL 26 MEQ/L (21-32); CHLORIDE LEVEL 101 MEQ/L (98-107); GLOMERULAR FILTRATION RATE > 60.0 (>39); GLUCOSE, FASTING 113 MG/DL (70-100); POTASSIUM SERUM 3.7 MEQ/L (3.5-5.1); SODIUM LEVEL 135 MEQ/L (136-145)
[2021-07-29] MEDS ORDERED: ISOVUE-370 76% 100ML VIAL As Ordered ONE (19:17)
--- NOTE | 2021-07-29 20:52 | REPVR ---
PROCEDURE INFORMATION: Exam: CT Left Lower Extremity Without Contrast, Hip Exam date and time: 07/29/2021 7:22 PM Age: 70 years old Clinical indication: Pain; Hip; Left; Prior surgery; Surgery date: 1-6 months; Additional info: With contrast: R/O left hip prosthesis infection TECHNIQUE: Imaging protocol: CT of the Left lower extremity without contrast was performed. Exam focused on the hip. Axial, coronal and sagittal reformatted images were created and reviewed. Radiation optimization: All CT scans at this facility use at least one of these dose optimization techniques: automated exposure control; mA and/or kV adjustment per patient size (includes targeted exams where dose is matched to clinical indication); or iterative reconstruction. COMPARISON: CR Hip,AP,LAT to include Pelvis 04/25/2021 4:47 PM FINDINGS: Bones/joints: Left hip hemiarthroplasty in place. No CT evidence of acute fracture or dislocation. Alignment anatomic. No erosive or destructive changes. No lytic or blastic lesion. Suboptimal evaluation for left hip joint effusion due to streak artifact from the patient's orthopedic hardware. Soft tissues: Postsurgical changes along the lateral aspect of hip. IMPRESSION: 1. Left hip hemiarthroplasty in anatomic alignment without evidence of hardware complication. Please note if there is clinical concern for intra-articular infection, joint aspiration may be useful. 2. Additional findings, as above. Electronically signed by: Ramon Headley On 07/29/2021 20:52:00 PM
[2021-07-29] MEDS: METOPROLOL TART 25 MG TABLET PO SCH (21:00)
[2021-07-29] MEDS ORDERED: METO25TA4 PO (23:20)
[2021-07-29] MEDS ORDERED: AMLO1TAB24 PO (23:20)
[2021-07-29] MEDS ORDERED: TREL1AER INH (23:20)
[2021-07-29] MEDS ORDERED: PROM25TA22 PO (23:20)
[2021-07-29] MEDS ORDERED: OMEP-221 PO (23:20)
[2021-07-29] MEDS ORDERED: HOME MED LIST COMPLETE! XX SCH (23:20)
[2021-07-29] MEDS ORDERED: ONDA4TAB6 PO (23:20)
[2021-07-29] MEDS ORDERED: TRAM50TA2 PO (23:20)
[2021-07-29] MEDS ORDERED: ACET-897 PO (23:20)
[2021-07-29] MEDS ORDERED: AMIT25TA17 PO (23:20)
[2021-07-29] MEDS ORDERED: SYNT125T PO (23:20)
[2021-07-30] VITALS: BP 106/65
[2021-07-30] MEDS: ONDANSETRON 4MG/2ML VIAL IV SCH ×4 (00:20→17:59)
[2021-07-30] MEDS ORDERED: IPRATROPIUM 0.5MG/ALBUTEROL 2.5MG INH SOL UD 3ML (DUONEB) NEB PRN (00:25)
[2021-07-30] MEDS ORDERED: ALBUTEROL 90 MCG/ACT 8GM HFA INHALER INH PRN (00:25)
--- NOTE | 2021-07-30 00:35 | HPEPDOC ---
[facility] Medical History & Physical Date of Admission Jul 29, 2021 Date of Service: Jul 29, 2021 Attending Physician: TRUE HEAD MD History and Physical CHIEF COMPLAINT: Fever HISTORY OF PRESENT ILLNESS: This is a 70-year-old elderly female who presents to [facility] ER with a chief complaint of fever and chills. Patient states that the fever and chills started around 4 AM on 07/29/2021 and states that she did not try to take any medications but double layered and tried to go back to sleep. She states that she does not remember much of what happened after that. She was brought to the ER with altered mental status and did have a T-max of 102. Of note she had a left hemiarthroplasty of the hip in April 2021 and upon follow-up with her orthopedic surgeon in [place] there were some lab abnormalities and the surgeon prescribed her doxycycline. Patient cannot tolerate doxycycline due to GI upsets and vomiting is stopped taking it 4 days in. She also states that shortly after stopping doxycycline, she experienced vertigo which lasted about 3 weeks and then resolved on its own. Patient denies any recent travels or having been in contact with anybody sick. She denies any chest pain palpitations abdominal pain headache dizziness. PAST MEDICAL HISTORY: Hypertension Kidney Stone Colitis Gastroparesis/Delayed Gastric Emptying Hypothyroidism - following radioactive iodine for hyperthyroidism Disease of stomach and duodenum, unspecified, Intestinal bypass and anastomosis status, Epigastric pain Gastritis Gastroparesis syndrome PAST SURGICAL HISTORY: Left total hip replacement (04/2021) EGD&Colonoscopy - (06/16/2012) EGD&Colonoscopy - (09/2011) B2 anastomosis, Ischemic colitis Section - 1972 Parathyroid - subtotal 2007 Gastrectomy - with B2 anastamosis 1993 EGD - 2013 , 01/2016-DR 05/08/19 EBB Hip -right to repair fracture in 201204/02/16-revision gastrojejunal anastomosis to [place]-en-Y anastomosis Lap Michelle - 06/26/19 SOCIAL HISTORY: Former smoker. Denies EtOH use or illicit drug use. Denies cocaine use. FAMILY HISTORY: Father: Liver Disease. due to Alcoholic. Mother: Emphysema. due to COPD. Sister 1: Breast Cancer. Sister 2: Colon Cancer - DIAGNOSED AGE 46 AND 60 ALLERGIES: Please see below. REVIEW OF SYSTEMS: General: Fevers and chills and myalgia. Denies any unintentional weight loss HEENT: Denies changes in vision including blurry vision or double vision, or hearing loss nasal congestion or sore throat Heart: Denies chest pain or chest pressure or discomfort, or palpitations, or lower extremity edema Pulm: Denies cough or sputum production or shortness of breath GI: Denies nausea vomiting diarrhea abdominal pain or bloody stools Psych: Denies sadness or loss of interest in doing things, no thoughts of self- harm or suicidal ideation HOME MEDICATIONS: Please see below. PHYSICAL EXAMINATION: VITAL SIGNS: See below GENERAL: Elderly female patient thin appearing no apparent distress. AAOx3 NEURO: No focal neurological deficits. Strength is 4 out of 5 throughout sensation intact. HEENT: Head is normocephalic and atraumatic. Extraocular muscles are intact. Pupils are equal, round, and reactive to light and accommodation. Nares appears normal. Moist mucous membranes. Very poor dentition has rotten teeth. Mallampati score 2 PULM: Decreased breath sounds. No wheezing, rhonchi or rales appreciated. No dullness to percussion or tactile fremitus appreciated. CARDIO: Normal S1, S2. No significant murmurs, gallops, rubs or clicks. Trace peripheral edema. ABDOMEN: Soft, nontender, and nondistended. Normal bowel sounds. There is a large vertical scar from prior abdominal surgery. No significant organomegaly appreciated. EXTREMITIES: No cyanosis, clubbing, rash, lesions. LABORATORY DATA: See below. IMAGING: Chest x-ray impression no focal infiltrate seen. Slightly elevated right hemidiaphragm. Mild perihilar fibrosis CT extremities with contrast impression: Left hip hemiarthroplasty in anatomic alignment without evidence of hardware complication. There is call concern for intra-articular infection, joint aspiration may be useful. MICROBIOLOGY: Blood cultures pending, UA with reflex culture pending ASSESSMENT AND PLAN: This is a 70-year-old elderly female who presents with 1 day history of fever and chills. Patient had a left hip hemiarthroplasty in April 2021 and was given doxycycline to take however patient cannot tolerate due to GI upsets. Imaging of her hip/CT did not reveal any abscess. Patient did have a T-max of 102 and was altered upon arrival to the ER but her mentation has since improved and she is currently ANO x3. Patient was asked by the hospitalist team to admit for further management of her care. Fever, unknown source Patient fever started yesterday with associated chills. She had a T-max of 102. Tylenol as antipyretic; Zofran for nausea We will get a hepatitis panel, follow-up with CBC and a CMP We will get TSH We will get EBV CMV HSV and HIV test We will get a CT abdomen pelvis as patient does have significant GI history A.m. team to consult infectious disease as necessary. Leukocytosis Patient does have elevated white count we will start her on empiric antibiotics pending blood cx COPD, not in exacerbation No formulary for her trelogy. Continue duo nebs DVT prophylaxis teds SCDs Disposition pending clinical improvement Vital Signs Vital Signs Date Time Temp Pulse Resp B/P (MAP) Pulse Ox O2 Delivery O2 Flow Rate FiO2 07/29/21 23:00 94 14 106/57 (73) 94 Room Air 07/29/21 20:45 2.0 07/29/21 19:30 98.7 Laboratory Data Labs 24H Laboratory Tests 2 07/29/21 15:53: Immature Granulocyte % (Auto) 0.7, Neutrophils (%) (Auto) 89.2H, Lymphocytes (%) (Auto) 3.7L, Monocytes (%) (Auto) 6.0, Eosinophils (%) (Auto) 0.2, Basophils (%) (Auto) 0.2, Neutrophils # (Auto) 15.9H, Lymphocytes # (Auto) 0.7L, Monocytes # (Auto) 1.1H, Eosinophils # (Auto) 0.0, Basophils # (Auto) 0.0, Nucleated Red Blood Cells % (auto) 0.0, Anion Gap 8, Glomerular Filtration Rate > 60.0, Calcium Level 8.4L, C-Reactive Protein, Quantitative 6.12H 07/29/21 16:28: Urine Color YELLOW, Urine Appearance CLEAR, Urine pH 8.0, Urine Specific [place] 1.012, Urine Protein NEGATIVE, Urine Glucose (UA) NEGATIVE, Urine Ketones NEGATIVE, Urine Blood NEGATIVE, Urine Nitrite NEGATIVE, Urine Bilirubin NEGATIVE, Urine Urobilinogen 0.2, Urine Leukocyte Esterase NEGATIVE, Urine WBC (Auto) 0, Urine RBC (Auto) 1, Urine Hyaline Casts (Auto) 0, Urine Bacteria (Auto) NEGATIVE, Urine Squamous Epithelial Cells 0, Urine Mucus (Auto) SMALL, Urine Sperm (Auto) CBC/BMP Laboratory Tests 07/29/21 15:53 Microbiology Microbiology 07/29/21 Respiratory Virus Panel (PCR) (KRISTEN) - Final, Complete 07/29/21 Blood Culture, Received Pending 07/29/21 Blood Culture, Received Pending Home Medications Scheduled Amitriptyline HCl (Amitriptyline HCl) 25 Mg Tablet, 25 MG PO QHS Amlodipine Besylate (Amlodipine Besylate) 5 Mg Tablet, 5 MG PO DAILY Azithromycin (Azithromycin) 250 Mg Tablet, 500 MG PO DAILY@1600 Cefdinir (Cefdinir) 300 Mg Capsule, 300 MG PO BID Fluticasone/Umeclidin/Vilanter (Trelegy Ellipta 100-62.5-25) 1 Each Blst.w.dev, 1 PUFF INH DAILY Lactobacillus Acidophilus (Probiotic) 1 Each Capsule, 1 CAP PO DAILY Levothyroxine Sodium (Synthroid) 125 Mcg Tablet, 125 MCG PO DAILY Metoprolol Tartrate (Metoprolol Tartrate) 25 Mg Tablet, 25 MG PO BID Omeprazole (Omeprazole) 40 Mg Capsule.dr, 40 MG PO QHS Scheduled PRN Acetaminophen (Tylenol Extra Strength) 500 Mg Tablet, 500 MG PO Q6H PRN for MILD PAIN or TEMP > 100.4 Ondansetron (Ondansetron Odt) 4 Mg Tab.rapdis, 4 MG PO Q4H PRN for NAUSEA Promethazine HCl (Promethazine HCl) 25 Mg Tablet, 25 MG PO QID PRN for NAUSEA Tramadol HCl (Tramadol HCl) 50 Mg Tablet, 50 MG PO Q6H PRN for MODERATE/SEVERE PAIN (PS 5-10) Allergies Coded Allergies: NSAIDS (Non-Steroidal Anti-Inflamma (Verified Adverse Reaction, Intermediate, D/T STOMACH, 06/26/19) A-FIB/CHADSVASC A-FIB History Current/History of A-Fib/PAF?: No Current PO Anticoag Therapy: No GME ATTESTATION GME ATTESTATION My faculty preceptor for this patient encounter was physically present during the encounter and was fully available. All aspects of the patient interview, examination, medical decision making process, and medical care plan development were reviewed and approved by the faculty preceptor. The faculty preceptor is aware and concurs with the plan as stated in the body of this note and will attest to such by his/her cosignature. ATTENDING NOTE IVirginia, have independently examined this patient and performed my own physical exam, as well as reviewed the documentation and edited where necessary. I have discussed in detail with the resident / student the findings and plan of treatment as documented by the resident / student and edited their note. I agree with their findings and treatment plan and have edited their documentation. I will continue to follow the patient during this hospital stay. Rafia Dougherty DO Jul 29, 2021 23:47 TRUE HEAD MD Aug 02, 2021 06:35
[2021-07-30 01:26] LABS: ALBUMIN 2.7 GM/DL (3.2-5.2); ALT/SGPT 44 U/L (12-78); BILIRUBIN,TOTAL 0.7 MG/DL (0.2-1.0); BLOOD UREA NITROGEN 11 MG/DL (7-18); CALCIUM LEVEL 8.2 MG/DL (8.8-10.2); CARBON DIOXIDE LEVEL 29 MEQ/L (21-32); CHLORIDE LEVEL 101 MEQ/L (98-107); GLOMERULAR FILTRATION RATE > 60.0 (>39); GLUCOSE, FASTING 101 MG/DL (70-100); LDH LACTATE DEHYDROGENASE 178 U/L (84-246); POTASSIUM SERUM 3.8 MEQ/L (3.5-5.1); SODIUM LEVEL 138 MEQ/L (136-145); THYROID STIMULATING HORMONE 0.519 uIU/ML (0.358-3.740); TOTAL PROTEIN 5.9 GM/DL (6.4-8.2)
[2021-07-30] MEDS: PIPERACILLIN/TAZOBACTAM SOD 3.375 GM in D5W MINI-BAG PLUS 50 ML IV SCH ×3 (03:23→14:14)
[2021-07-30 04:00] VITALS: BP 114/64
[2021-07-30 04:29] LABS: HEMATOCRIT 36.6 % (36.0-47.0); HEMOGLOBIN 11.5 g/dl (12.0-15.5); MEAN CORPUSCULAR HEMOGLOBIN 26.9 pg (27.0-33.0); MEAN CORPUSCULAR HGB CONC 31.4 g/dl (32.0-36.5); MEAN CORPUSCULAR VOLUME 85.5 fl (80.0-96.0); PLATELET COUNT, AUTOMATED 240 10^3/uL (150-450); RED BLOOD COUNT 4.28 10^6/uL (4.00-5.40); WHITE BLOOD COUNT 10.3 10^3/uL (4.0-10.0)
[2021-07-30 04:57] LABS: ALBUMIN 2.7 GM/DL (3.2-5.2); ALT/SGPT 41 U/L (12-78); BILIRUBIN,TOTAL 0.8 MG/DL (0.2-1.0); BLOOD UREA NITROGEN 11 MG/DL (7-18); CALCIUM LEVEL 8.4 MG/DL (8.8-10.2); CARBON DIOXIDE LEVEL 28 MEQ/L (21-32); CHLORIDE LEVEL 103 MEQ/L (98-107); CREATININE FOR GFR 0.65 MG/DL (0.55-1.30); GLOMERULAR FILTRATION RATE > 60.0 (>39); GLUCOSE, FASTING 111 MG/DL (70-100); POTASSIUM SERUM 3.6 MEQ/L (3.5-5.1); SODIUM LEVEL 139 MEQ/L (136-145); TOTAL PROTEIN 5.9 GM/DL (6.4-8.2)
[2021-07-30] MEDS: LEVOTHYROXINE 125MCG TABLET (0.125MG) PO SCH (05:09)
[2021-07-30] MEDS: AMITRIPTYLINE 25MG TABLET PO SCH ×2 (05:09→20:37)
[2021-07-30] MEDS: PANTOPRAZOLE 40MG VIAL (C9113 PER 1) IV SCH (07:58)
[2021-07-30] MEDS: amLODIPine 5 MG TAB PO SCH (07:59)
[2021-07-30] MEDS: METOPROLOL TART 25 MG TABLET PO SCH ×2 (07:59→20:37)
[2021-07-30 08:00] VITALS: BP 125/68
[2021-07-30] MEDS ORDERED: FLUBLOK(EGG FREE)(QUAD)INFLUENZA VACC 0.5ML SYRINGE 18YRS & OLDER IM ONE (09:00)
--- NOTE | 2021-07-30 09:11 | REP ---
INDICATION: FEVER. COMPARISON: CT abdomen and pelvis, 05/07/2019. TECHNIQUE: Imaging protocol: Computed tomography of the abdomen and pelvis without IV contrast. Contiguous 3 mm thick axial projection images were obtained through the abdomen and pelvis. 2D sagittal and coronal reconstructions were performed. Radiation optimization: All CT scans at this facility use at least one of these dose optimization techniques: automated exposure control; mA and/or kV adjustment per patient size (includes targeted exams where dose is matched to clinical indication); or iterative reconstruction. FINDINGS: Heart and lung bases: There are multiple foci of nonspecific bronchiolitis in the basilar segments of both lower lobes, the medial segment of the middle lobe of the right lung and the inferior segment of the lingula. There is superimposed consolidation/scarring in the medial segment of the middle lobe the right lung and the inferior segment of the lingula. There are no pleural effusions. The heart size is normal. There is no pericardial effusion. There is calcific vascular disease of the thoracic aorta and coronary arteries. Liver: Normal unenhanced appearance. Gallbladder: Surgically absent. Spleen: Normal unenhanced appearance. Pancreas: Normal unenhanced appearance. Adrenal glands: Normal unenhanced appearance. Kidneys/bladder: There are benign cortical cyst in the left kidney. There is IV contrast in both renal collecting systems, and the urinary bladder. Pelvic structures: Artifact from the bilateral total hip arthroplasties largely obscure the pelvis. There is a stable multiloculated cyst in the left ovary. The uterus has a normal unenhanced appearance. The right ovary is not identified. There is no free fluid the pelvis. There is no pelvic or inguinal lymphadenopathy. GI tract: There are surgical clips in the epigastrium consistent with anti reflux surgery. There are surgical clips in the stomach consistent with gastrojejunostomy. There is a staple line in the mid mesenteric small bowel consistent with partial small bowel resection. Abdominal wall and mesentery: There are no abdominal wall defects. There are multiple reactive mesenteric and retroperitoneal lymph nodes. Abdominal aorta and vascular structures: There is calcific vascular disease of the abdominal aorta. Bony structures: There is central compression of the superior endplate of L2, new since the prior CT exam. There are calcific or metallic foci within the L4-5 intervertebral disc. There is severe degenerative disc disease, L5-S1. There are bilateral total hip arthroplasties. The SI joints are unremarkable. IMPRESSION: 1. Multifocal nonspecific bronchiolitis in both lung bases, not apparent previously. 2. Calcific vascular disease of the thoracoabdominal aorta and coronary arteries. 3. Status post anti reflux surgery, gastrojejunostomy, and partial small-bowel resection. There is no evidence of bowel obstruction. 4. Reactive mesenteric and retroperitoneal lymph nodes, do not appear significantly changed. 5. Interval development of central compression of the superior endplate of L2. 6. Degenerative disc disease, L5-S1, not significantly changed. Other findings as noted. <Electronically signed by Axel Hatfield > 07/30/21 [id number]
[2021-07-30 11:59] LABS: HEPATITIS B SURFACE ANTIGEN NEGATIVE (NEGATIVE)
[2021-07-30 12:00] VITALS: BP 139/66
[2021-07-30 12:26] LABS: HEPATITIS B CORE ANTIBODY IGM NEGATIVE (NEGATIVE); HEPATITIS C VIRUS ABY INDEX 0.1 INDEX (<0.8)
[2021-07-30 12:29] LABS: HEPATITIS A ANTIBODY IGM NEGATIVE (NEGATIVE)
--- NOTE | 2021-07-30 13:24 | IPNPDOC ---
Text Note Date of Service The patient was seen on 07/30/21. NOTE Subjective: -confusion has resolved, she does not remember much from yesterday. Reports recent vertigo with N/V no abdominal pain, chest pain, SOB, COOK, neck stiffness, sensitivity to light, open wound/sore. Objective: VITAL SIGNS: See below GENERAL: Thin, otherwise appears well, AAOx3 NEURO: No focal neurological deficits. CN 3-12 intact, no meningisms on examination with negative Kernig's and Brudzinski's. Strength is 5 out of 5 throughout sensation intact. HEENT: NCAT, EOMI, slight injected sclerae, no discharge, anicteric, MMM, poor dentition PULM: Bibasilar crackles this morning, otherwise moving air well, no wheezing CARDIO: RRR. NO murmurs ABDOMEN: Soft, nontender, and nondistended. Normal bowel sounds. Vertical scar from prior abdominal surgery, well healed. No hepatosplenomegaly EXTREMITIES: WWP SKIN: No rash or lesions. LABORATORY DATA: Reviewed WBC 10.3 Hgb 11.5 platelets 240 AST 42 ALT 41 Na 139 K 3.6 Cr 0.65 ESR 46 UA bland IMAGING: Chest x-ray impression no focal infiltrate seen. Slightly elevated right hemidiaphragm. Mild perihilar fibrosis CT extremities with contrast impression: Left hip hemiarthroplasty in anatomic alignment without evidence of hardware complication. There is call concern for intra-articular infection, joint aspiration may be useful. CT A/P: Heart and lung bases: There are multiple foci of nonspecific bronchiolitis in the basilar segments of both lower lobes, the medial segment of the middle lobe of the right lung and the inferior segment of the lingula. There is superimposed consolidation/scarring in the medial segment of the middle lobe the right lung and the inferior segment of the lingula. There are no pleural effusions. The heart size is normal. There is no pericardial effusion. There is calcific vascular disease of the thoracic aorta and coronary arteries. Liver: Normal unenhanced appearance. Gallbladder: Surgically absent. Spleen: Normal unenhanced appearance. Pancreas: Normal unenhanced appearance. Adrenal glands: Normal unenhanced appearance. Kidneys/bladder: There are benign cortical cyst in the left kidney. There is IV contrast in both renal collecting systems, and the urinary bladder. Pelvic structures: Artifact from the bilateral total hip arthroplasties largely obscure the pelvis. There is a stable multiloculated cyst in the left ovary. The uterus has a normal unenhanced appearance. The right ovary is not identified. There is no free fluid the pelvis. There is no pelvic or inguinal lymphadenopathy. GI tract: There are surgical clips in the epigastrium consistent with anti reflux surgery. There are surgical clips in the stomach consistent with gastroj ejunostomy. There is a staple line in the mid mesenteric small bowel consistent with partial small bowel resection. Abdominal wall and mesentery: There are no abdominal wall defects. There are multiple reactive mesenteric and retroperitoneal lymph nodes. Abdominal aorta and vascular structures: There is calcific vascular disease of the abdominal aorta. Bony structures: There is central compression of the superior endplate of L2, new since the prior CT exam. There are calcific or metallic foci within the L4-5 intervertebral disc. There is severe degenerative disc disease, L5-S1. There are bilateral total hip arthroplasties. The SI joints are unremarkable. IMPRESSION: 1. Multifocal nonspecific bronchiolitis in both lung bases, not apparent previously. 2. Calcific vascular disease of the thoracoabdominal aorta and coronary arteries. 3. Status post anti reflux surgery, gastrojejunostomy, and partial small-bowel resection. There is no evidence of bowel obstruction. 4. Reactive mesenteric and retroperitoneal lymph nodes, do not appear significantly changed. 5. Interval development of central compression of the superior endplate of L2. 6. Degenerative disc disease, L5-S1, not significantly changed. Other findings as noted. MICROBIOLOGY: Blood cultures pending, UA with reflex culture pending ASSESSMENT AND PLAN: 70-year-old W with a history of L hip arthroplasty in 04/2021, who presented wtih fever and AMS reporting recent vertigo with N/V and had a fever to 102 with thus far nonfocal examination and infectious workup but with notable leukocytosis and elevated ESR. Fever, unknown source: reports vertigo, N/V/sweats -acetaminophen PRN for fever -ondansetron for nausea -HAV, HBCV, and HCV negative -pending EBV, CMV and HSV and HIV studies -CT abdomen pelvis and L hip were unrevealing -will get TTE, dry CT chest, and will consult ID -on empiric zosyn -BCx negative -UA was bland COPD, not in exacerbation -Continue duo nebs DVT prophylaxis teds SCDs Disposition pending clinical improvement VS,Karlosbone, I+O VS, Fishbone, I+O Laboratory Tests 07/29/21 15:53 07/30/21 00:36 07/30/21 04:11 Vital Signs Date Time Temp Pulse Resp B/P (MAP) Pulse Ox O2 Delivery O2 Flow Rate FiO2 07/30/21 12:00 98.1 89 18 139/66 (90) 93 Room Air 07/29/21 20:45 2.0 I&O- Last 24 Hours up to 6 AM 07/30/21 06:00 Intake Total 0 ml Balance 0 ml UBALDO HUSAIN MD Jul 30, 2021 13:24
--- NOTE | 2021-07-30 14:12 | REPVR ---
PROCEDURE INFORMATION: Exam: CT Head Without Contrast Exam date and time: 07/30/2021 1:08 PM Age: 70 years old Clinical indication: Other: Fever, vertigo, n/v TECHNIQUE: Imaging protocol: Computed tomography of the head without contrast. Radiation optimization: All CT scans at this facility use at least one of these dose optimization techniques: automated exposure control; mA and/or kV adjustment per patient size (includes targeted exams where dose is matched to clinical indication); or iterative reconstruction. COMPARISON: CT Head without contrast 02/13/2021 12:00 PM FINDINGS: Brain: There is no acute intracranial hemorrhage or mass effect. Mild diffuse volume loss is within the range of normal for patient age. There are small vessel ischemic changes within the periventricular and subcortical white matter, but the normal cox/white matter delineation is maintained. Cerebral ventricles: No ventriculomegaly. Paranasal sinuses: Visualized sinuses are unremarkable. No fluid levels. Mastoid air cells: Visualized mastoid air cells are well aerated. Bones/joints: Unremarkable. No acute fracture. Soft tissues: Unremarkable. IMPRESSION: No acute hemorrhage or edema. Electronically signed by: Cheryl Proctor On 07/30/2021 14:12:27 PM
[2021-07-30] MEDS: ACETAMINOPHEN TAB 650MG DOSE (2X325MG) PO PRN (14:18)
--- NOTE | 2021-07-30 14:35 | REP ---
INDICATION: fever. COMPARISON: Comparison chest x-ray July 29, 2021. TECHNIQUE: Helical scanning is acquired. 3 mm axial images are generated. Coronal and sagittal MPR and coronal MIP images are generated. FINDINGS: Preliminary digital nurses' aide radiograph is unremarkable. Axial CT images demonstrate small areas of patchy predominantly peripheral pulmonary parenchymal consolidation consistent with pneumonia. The largest of these areas is in the left lower lobe posteriorly. There is some tree-in-bud type peribronchovascular nodularity in the periphery of the right lower lobe posterolaterally as well. A small infiltrate is seen in the right upper lobe anteriorly. There is medial atelectasis and consolidation in the right middle lobe. There is no evidence of pleural or pericardial effusion. No hilar or mediastinal mass is seen. No adenopathy is noted. Vascular calcification is noted. The adrenal glands are unremarkable. Gallbladder surgically absent. The there is evidence of a gastrojejunostomy in the left upper quadrant of the abdomen. Renal cortical cysts are noted. IMPRESSION: There are patchy infiltrates in the lung cash bilaterally most notably affecting the left lower lobe and right middle lobe consistent with pneumonia. The lungs are hyperinflated. This consistent with COPD. Vascular calcification is noted. <Electronically signed by Victorino Crow > 07/30/21 [id number]
[2021-07-30 16:00] VITALS: BP 120/64
[2021-07-30 20:00] VITALS: BP 121/63
[2021-07-30] MEDS: cefTRIAXone SOD 2 GM in D5W MINI-BAG PLUS 50 ML IV SCH (20:39)
[2021-07-30] MEDS: traMADol 50 MG TAB PO PRN (23:38)
[2021-07-31] VITALS: BP 106/58
[2021-07-31] MEDS: ACETAMINOPHEN TAB 650MG DOSE (2X325MG) PO PRN ×2 (03:03→12:31)
[2021-07-31] MEDS: PROMETHAZINE 25 MG TAB PO PRN ×3 (03:03→20:11)
[2021-07-31 04:00] VITALS: BP 127/67
[2021-07-31 04:21] LABS: HEMATOCRIT 37.1 % (36.0-47.0); HEMOGLOBIN 11.7 g/dl (12.0-15.5); MEAN CORPUSCULAR HEMOGLOBIN 27.3 pg (27.0-33.0); MEAN CORPUSCULAR HGB CONC 31.5 g/dl (32.0-36.5); MEAN CORPUSCULAR VOLUME 86.7 fl (80.0-96.0); PLATELET COUNT, AUTOMATED 273 10^3/uL (150-450); RED BLOOD COUNT 4.28 10^6/uL (4.00-5.40); WHITE BLOOD COUNT 5.9 10^3/uL (4.0-10.0)
[2021-07-31 04:42] LABS: BLOOD UREA NITROGEN 10 MG/DL (7-18); CALCIUM LEVEL 8.5 MG/DL (8.8-10.2); CARBON DIOXIDE LEVEL 25 MEQ/L (21-32); CHLORIDE LEVEL 104 MEQ/L (98-107); CREATININE FOR GFR 0.78 MG/DL (0.55-1.30); GLOMERULAR FILTRATION RATE > 60.0 (>39); GLUCOSE, FASTING 133 MG/DL (70-100); POTASSIUM SERUM 3.4 MEQ/L (3.5-5.1); SODIUM LEVEL 139 MEQ/L (136-145)
[2021-07-31] MEDS: LEVOTHYROXINE 125MCG TABLET (0.125MG) PO SCH (06:39)
[2021-07-31] MEDS: ONDANSETRON 4MG/2ML VIAL IV SCH ×4 (06:39→17:50)
[2021-07-31 08:00] VITALS: BP 127/79
[2021-07-31] MEDS ORDERED: POTASSIUM CHLORIDE 10MEQ SR TABLET PO ONE (09:15)
[2021-07-31] MEDS: PANTOPRAZOLE 40MG VIAL (C9113 PER 1) IV SCH (09:36)
[2021-07-31] MEDS: METOPROLOL TART 25 MG TABLET PO SCH ×2 (09:37→20:11)
[2021-07-31] MEDS: amLODIPine 5 MG TAB PO SCH (09:38)
--- NOTE | 2021-07-31 11:49 | IPNPDOC ---
Text Note Date of Service The patient was seen on 07/31/21. NOTE Subjective: -No N/V no abdominal pain, chest pain, SOB, COOK, neck stiffness, sensitivity to light -Seen by ID, also reported weeks of chills and night sweats. Objective: VITAL SIGNS: See below GENERAL: Thin, otherwise appears well, AAOx3 NEURO: No focal neurological deficits. CN 3-12 intact, no meningisms on examination with negative Kernig's and Brudzinski's. Strength is 5 out of 5 throughout sensation intact. HEENT: NCAT, EOMI, slight injected sclerae, no discharge, anicteric, MMM, poor dentition PULM: Bibasilar crackles, otherwise moving air well, no wheezing CARDIO: RRR. NO murmurs ABDOMEN: Soft, nontender, and nondistended. Normal bowel sounds. Vertical scar from prior abdominal surgery, well healed. No hepatosplenomegaly EXTREMITIES: WWP SKIN: No rash or lesions. LABORATORY DATA: Reviewed WBC 5.9 Hgb 11.7 K 3.4 Cr 0.78 IMAGING: Chest x-ray impression no focal infiltrate seen. Slightly elevated right hemidiaphragm. Mild perihilar fibrosis CT extremities with contrast impression: Left hip hemiarthroplasty in anatomic alignment without evidence of hardware complication. There is call concern for intra-articular infection, joint aspiration may be useful. CT A/P: Heart and lung bases: There are multiple foci of nonspecific bronchiolitis in the basilar segments of both lower lobes, the medial segment of the middle lobe of the right lung and the inferior segment of the lingula. There is superimposed consolidation/scarring in the medial segment of the middle lobe the right lung and the inferior segment of the lingula. There are no pleural effusions. The heart size is normal. There is no pericardial effusion. There is calcific vascular disease of the thoracic aorta and coronary arteries. Liver: Normal unenhanced appearance. Gallbladder: Surgically absent. Spleen: Normal unenhanced appearance. Pancreas: Normal unenhanced appearance. Adrenal glands: Normal unenhanced appearance. Kidneys/bladder: There are benign cortical cyst in the left kidney. There is IV contrast in both renal collecting systems, and the urinary bladder. Pelvic structures: Artifact from the bilateral total hip arthroplasties largely obscure the pelvis. There is a stable multiloculated cyst in the left ovary. The uterus has a normal unenhanced appearance. The right ovary is not identified. There is no free fluid the pelvis. There is no pelvic or inguinal lymphadenopathy. GI tract: There are surgical clips in the epigastrium consistent with anti reflux surgery. There are surgical clips in the stomach consistent with gastrojejunostomy. There is a staple line in the mid mesenteric small bowel consistent with partial small bowel resection. Abdominal wall and mesentery: There are no abdominal wall defects. There are multiple reactive mesenteric and retroperitoneal lymph nodes. Abdominal aorta and vascular structures: There is calcific vascular disease of the abdominal aorta. Bony structures: There is central compression of the superior endplate of L2, new since the prior CT exam. There are calcific or metallic foci within the L4-5 intervertebral disc. There is severe degenerative disc disease, L5-S1. There are bilateral total hip arthroplasties. The SI joints are unremarkable. IMPRESSION: 1. Multifocal nonspecific bronchiolitis in both lung bases, not apparent previously. 2. Calcific vascular disease of the thoracoabdominal aorta and coronary arteries. 3. Status post anti reflux surgery, gastrojejunostomy, and partial small-bowel resection. There is no evidence of bowel obstruction. 4. Reactive mesenteric and retroperitoneal lymph nodes, do not appear significantly changed. 5. Interval development of central compression of the superior endplate of L2. 6. Degenerative disc disease, L5-S1, not significantly changed. Other findings as noted. Ct chest w/o contrast: Preliminary digital duct cleaner radiograph is unremarkable. Axial CT images demonstrate small areas of patchy predominantly peripheral pulmonary parenchymal consolidation consistent with pneumonia. The largest of these areas is in the left lower lobe posteriorly. There is some tree-in-bud type peribronchovascular nodularity in the periphery of the right lower lobe posterolaterally as well. A small infiltrate is seen in the right upper lobe anteriorly. There is medial atelectasis and consolidation in the right middle lobe. There is no evidence of pleural or pericardial effusion. No hilar or mediastinal mass is seen. No adenopathy is noted. Vascular calcification is noted. The adrenal glands are unremarkable. Gallbladder surgically absent. The there is evidence of a gastrojejunostomy in the left upper quadrant of the abdomen. Renal cortical cysts are noted. IMPRESSION: There are patchy infiltrates in the lung cash bilaterally most notably affecting the left lower lobe and right middle lobe consistent with pneumonia. The lungs are hyperinflated. This consistent with COPD. Vascular calcification is noted. MICROBIOLOGY: Blood cultures pending, UA with reflex culture pending ASSESSMENT AND PLAN: 70-year-old W with a history of L hip arthroplasty in 04/2021, who presented with fever and transient AMS reporting recent vertigo with N/V and had a fever to 102 and now with evidence of CAP with ongoing further infectious workup. Fever, likely 2/2 CAP: -acetaminophen PRN for fever -ondansetron for nausea -HAV, HBCV, and HCV negative -pending EBV, CMV and HSV and HIV studies -CT abdomen pelvis and L hip were unrevealing -CT chest showed multifocal PNA worst in RLL -f/u TTE -ID consulted, appreciate recs, ordered tickborne panel, legionella and strep antigens, and switched antibiotics from zosyn to ceftriaxone -BCx negative -UA was bland COPD, not in exacerbation -Continue duo nebs DVT prophylaxis teds SCDs Disposition pending clinical improvement VS,Maryellen, I+O VS, Javiere, I+O Laboratory Tests 07/31/21 03:42 Vital Signs Date Time Temp Pulse Resp B/P (MAP) Pulse Ox O2 Delivery O2 Flow Rate FiO2 07/31/21 04:00 97.8 81 18 127/67 (87) 96 Room Air 07/29/21 20:45 2.0 I&O- Last 24 Hours up to 6 AM 07/31/21 06:00 Intake Total 700 ml Output Total 450 ml Balance 250 ml UBALDO HUSAIN MD Jul 31, 2021 09:20
--- NOTE | 2021-07-31 14:32 | CR ---
CONSULTATION DATE: 07/30/2021 Asked to consult by Dr. Rowan for evaluation of fever of unknown origin. HISTORY OF PRESENT ILLNESS: Mrs. Garibay is a pleasant 70-year-old female who came into the hospital yesterday after her neighbor noticed that she was confused, incontinent of urine, and was having fever and chills. Patient does not recall much of the events of yesterday that brought her to the hospital but states she had not been feeling well for a couple weeks with fevers on and off, which she did not realize they were fevers, but she was describing them as chills and sweats. The patient had no associated nausea, vomiting, or diarrhea. She has chronic abdominal pain from history of peptic ulcer disease, which was unchanged compared to her usual. She has a history of chronic obstructive pulmonary disease (COPD) and has mild dyspnea on exertion, which was also not any different. Patient had a left hip hemiarthroplasty in April 2021 after a fall and had been seen by the orthopedic surgeon a month later, complaining of some thigh pain. She had blood work done, which showed some elevated inflammation marker, according to patient's history, and she was given doxycycline, which she took for 4 days. Following that, which was somewhere around the end of May, she had significant abdominal pain for 4 days and stopped the medication. She had no recent travel. She has not left [place] and actually lives in [facility] in the [place] [facility] and in the winter she lives with her daughter in [place]. No pets. No tick bites. She did not do much outdoor activity this summer because of her recent hip surgery. MEDICAL HISTORY: Significant for: 1. Hypertension. 2. Kidney stones. 3. Colitis. Endoscopy done May 2019 was benign. 4. History of chronic gastric ulcers, status post partial gastrectomy, Chacho-en-Y surgery. 5. Distal tibia-fibula fracture in November 2019, treated with a cast. 6. History of septic arthritis in February 2019 of the right knee with culture negative, treated with 4 weeks of intravenous (IV) Rocephin. 7. Positive Lyme IgM in 2018. SURGICAL HISTORY: 1. Left total hip replacement April 2021. 2. Esophagogastroduodenoscopy (EGD)/colonoscopy in 2010, 2011, 2018. 3. section. 4. Total parathyroidectomy. 5. Gastrectomy with Billroth II procedure. 6. Laparoscopic cholecystectomy 06/26/2019. 7. March 2016 revision of gastric jejunal anastomosis to Chacho-en-Y anastomosis. SOCIAL HISTORY: She quit smoking in 2011. Denies alcohol or drug use. Denies cocaine use. She is . She has one daughter she lives with in the winter. She does not have any sexual partners. FAMILY HISTORY: Father of alcoholism, mother of emphysema. Sister with breast cancer. Another sister with colon cancer. REVIEW OF SYSTEMS: She has fevers, confusions that have resolved. Shaking chills and myalgia, mostly in thigh but otherwise no nausea, vomiting, diarrhea. No upper or lower extremity weakness. No neck stiffness. No rashes. No tick bites. PHYSICAL EXAMINATION: She is a pleasant, elderly female in no acute distress. Temperature is 97.9, pulse 72, respirations 17, blood pressure 121/63, oxygen saturation 91% on room air. Temperature yesterday was 102.1. HEART: Normal S1, S2. No murmurs, rubs, or gallops. LUNGS: Clear. No wheezes, rales, or rhonchi. Diminished air entry. ABDOMEN: Soft, mildly tender in the epigastric area. Healed midline scar from multiple abdominal surgeries. Healed section scar. No significant tenderness. No rebound. No guarding. Bowel sounds present. BACK: No costovertebral angle (CVA) or lumbosacral tenderness. EXTREMITIES: No clubbing, cyanosis, or edema. No calf tenderness. Bilateral surgical scar, hip replacement, not swollen, well healed. Left hip had slight weakness compared to the right side, but there is no significant swelling of the hip, redness, or tenderness. ALLERGIES: NONSTEROIDAL ANTI-INFLAMMATORY DRUGS (NSAIDs) due to GI issues. MEDICATIONS: - Zosyn 3.375 grams intravenous (IV) every 6 hours - levothyroxine 125 mcg daily - amlodipine 5 mg daily - pantoprazole 40 mg IV daily - albuterol adjuvant nebulizers every 4 as needed - Tramadol 50 mg by mouth every 6 as needed - Zofran 4 mg IV every 6 as needed - Tylenol 650 mg by mouth every 6 as needed - metoprolol 25 mg by mouth twice a day - amitriptyline 25 mg by mouth every night LABORATORY DATA: White count yesterday was 17.8, today was 10.3, hemoglobin 11.5, hematocrit 36.6, platelets 240, ESR 46. Sodium 139, potassium 3.6, chloride 103, bicarbonate 28, BUN 11, creatinine 0.65, glucose 111. Uric acid 4.9. Lactic acid 1.1. Total bilirubin 0.8, AST 42, ALT 41, alkaline phosphatase 120, total protein 5.9, albumin 2.7. Procalcitonin 0.61. TSH 0.519. Blood cultures, two sets, no growth after 24 hours. Respiratory panel was negative. Urinalysis has 0 white cells, 1 red cell. IMAGING STUDIES: Chest CT 07/30/2021 showed patchy infiltrates in the lung cash, most notable affecting the left lower lobe and right middle lobe, consistent with pneumonia, hyperinflated, and chronic obstructive pulmonary disease (COPD). Head CT on 07/30/2021 showed no acute hemorrhage or edema. CT abdomen and pelvis showed a compression of superior endplate of L2, several degenerative disc disease, gastrojejunostomy, reactive mesenteric and retroperitoneal lymph node. Did not appear changed compared to CT abdomen of 2019. Extremity CT, left lower without contrast. Left hip hemiarthroplasty in anatomic alignment without evidence of hardware complication. No erosive destructive changes. No lytic lesions. Suboptimal due to artifact from the arthroplasty. IMPRESSION: This is a 70-year-old female status post left hemiarthroplasty in April 2021 with some residua left thigh pain, although not significantly changed from surgery. Admitted with fever, chills, confusion. Urinalysis did not suggest the presence of urinary tract infection, even though chest CT suggests multifocal pneumonitis. Patient does not have clinical symptoms of pneumonia. She does not have any cough. She does not have increased shortness of breath; however, she may have atypical pneumonia, such as Mycoplasma or chlamydia, which may explain some of her symptoms of fever and CT findings. Other possibilities, although she has not been outdoors, she lives in [facility] and could have had a tick bite, and she could have Lyme disease, anaplasma Babesia. PLAN: Patient has been tested for hepatitis A, B, and C that have been negative. Also an HIV test has been sent, but the wrong test was sent. This is not the appropriate testing for screening. Patient does not have any sexual partners, and this is very unlikely. Eulalio-Wade virus (EBV) DNA was sent. Anaplasma Babesia, Lyme serology was ordered and sent. Discontinue IV Zosyn. There is no need for broad-spectrum coverage. I would switch her to ceftriaxone 2 grams IV every 24 hours that would great the pneumonia plus Lyme disease. Lyme serology is pending. If fever persists, may add Zithromax for atypical coverage for pneumonitis, although I am not convinced about that. I would also obtain a urine Legionnaire and pneumococcal antigen. Case will be discussed with hospitalist tomorrow.
--- NOTE | 2021-07-31 14:59 | IPN ---
PROGRESS NOTE DATE: 07/31/2021 Kelli seems to be doing well. She denies any nausea, vomiting, or diarrhea. She has chronic epigastric pain, which is unchanged. She has no fever or chills. She is no longer confused. LABORATORY DATA: Temperature 97.9, pulse 93, respirations 20, blood pressure 127/79, oxygen saturation 96% on room air. HEART: Normal S1, S2. No murmurs. LUNGS: Distant. No wheezes, rales, or rhonchi. ABDOMEN: Soft, nontender. No hepatosplenomegaly. EXTREMITIES: No clubbing, cyanosis, or edema. Thighs: No tenderness. Left hip: No evidence of infection. No redness. LABORATORY DATA: White count 5.9, hemoglobin 11.7, hematocrit 37.1, platelets 273. ESR 46. Sodium 139, potassium 3.4, chloride 104, bicarbonate 25, BUN 10, creatinine 0.78, glucose 133, calcium 8.5. Procalcitonin 0.61. Blood cultures, two sets, no growth. Respiratory panel is negative. CT chest was reviewed with Dr. Don Crow, who stated that the infiltrates are new compared to a CT angiogram done in 2017. Patchy, bilateral, most notably in the left lower lobe and right middle lobe. IMPRESSION: 1- 70-year-old female admitted with a fever of 102.[address] consistent with pneumonia. The patient is on intravenous (IV) Rocephin. We will also add Zithromax to cover for atypical pathogens. Urine Legionnaire antigen and pneumococcal antigen were obtained. Patient states that she has no cough, and her shortness of breath is at baseline, which is somewhat surprising for somebody with pneumonia. 2. Chronic obstructive pulmonary disease (COPD), on Trilogy, stable. 3. Night sweats and chills for the past 4 weeks. Needs to be further pursued if that persists after treatment of pneumonia. PLAN: Continue with IV Rocephin. Start Zithromax 500 mg by mouth daily. Send urine Legionnaire antigen and pneumococcal antigen. Lyme serology as well as tick-born diseases have been sent and are pending, although patient denies being outdoors much this summer. If patient continues to remain well, she could probably be discharged home over this weekend with cefdinir, Zithromax, or levofloxacin. [facility]
[2021-07-31 19:43] VITALS: BP 124/88
[2021-07-31] MEDS: cefTRIAXone SOD 2 GM in D5W MINI-BAG PLUS 50 ML IV SCH (20:11)
[2021-07-31] MEDS: AMITRIPTYLINE 25MG TABLET PO SCH (20:11)
[2021-08-01] MEDS: ONDANSETRON 4MG/2ML VIAL IV SCH ×2 (00:21→05:29)
[2021-08-01] MEDS: traMADol 50 MG TAB PO PRN (00:23)
[2021-08-01 04:05] VITALS: BP 134/77
[2021-08-01] MEDS: LEVOTHYROXINE 125MCG TABLET (0.125MG) PO SCH (05:29)
[2021-08-01 06:00] LABS: HEMATOCRIT 37.4 % (36.0-47.0); HEMOGLOBIN 11.5 g/dl (12.0-15.5); MEAN CORPUSCULAR HGB CONC 30.7 g/dl (32.0-36.5); MEAN CORPUSCULAR VOLUME 87.8 fl (80.0-96.0); PLATELET COUNT, AUTOMATED 297 10^3/uL (150-450); RED BLOOD COUNT 4.26 10^6/uL (4.00-5.40); WHITE BLOOD COUNT 5.1 10^3/uL (4.0-10.0)
[2021-08-01 06:28] LABS: BLOOD UREA NITROGEN 7 MG/DL (7-18); CALCIUM LEVEL 8.9 MG/DL (8.8-10.2); CARBON DIOXIDE LEVEL 27 MEQ/L (21-32); CHLORIDE LEVEL 107 MEQ/L (98-107); CREATININE FOR GFR 0.68 MG/DL (0.55-1.30); GLOMERULAR FILTRATION RATE > 60.0 (>39); GLUCOSE, FASTING 104 MG/DL (70-100); POTASSIUM SERUM 3.9 MEQ/L (3.5-5.1); SODIUM LEVEL 142 MEQ/L (136-145)
[2021-08-01 08:00] VITALS: BP 140/80
[2021-08-01] MEDS: PANTOPRAZOLE 40MG VIAL (C9113 PER 1) IV SCH (08:20)
[2021-08-01] MEDS: PROMETHAZINE 25 MG TAB PO PRN (08:20)
[2021-08-01 08:21] VITALS: BP 140/80
[2021-08-01] MEDS: amLODIPine 5 MG TAB PO SCH (08:21)
[2021-08-01] MEDS: METOPROLOL TART 25 MG TABLET PO SCH (08:21)
--- NOTE | 2021-08-01 11:18 | ECHO ---
ECHOCARDIOGRAM DATE OF PROCEDURE: 07/31/2021 Age: 70 Gender: Female Height: 60 inches Weight: 112 pounds Body Surface Area: 1.46 m2 PATIENT LOCATION: Inpatient, progressive care unit (PCU), Room 3230. REFERRING PHYSICIAN: No Parikh M.D. INDICATION: Fever, shortness of breath, abnormal EKG. MEASUREMENTS: 2D Measurements: RV - 3.1 cm LV - 3.5 cm Septum 1.0 cm Posterior wall 1.0 cm Aortic root 3.0 cm LA - 3.9 cm LVEF 65% Doppler Measurements: AV - 1.26 m/sec LVOT - 0.8 m/sec LVOT diameter 1.9 cm MV-E 44, A 62, EA ratio 0.7 Early mitral deceleration time 292 msec E prime medial 5.8 A prime medial 8.7 E prime lateral 8.6 PV - 0.8 m/sec Pulmonary artery acceleration time 120 msec RVSP 28 mmHg PVC - 1.7 cm COMMENTS: Normal sinus rhythm without intraventricular conduction disturbance. M-mode and 2-dimensional echocardiography was performed with pulse, continuous wave and color flow Doppler study along with tissue Doppler study. Normal left ventricular size, wall thickness and wall motion. Left atrial size upper limits of normal to slightly dilated with grade 1 left ventricular (LV) diastolic dysfunction with currently normal estimated mean left atrial pressure. Normal right heart chamber sizes and motion and estimated pulmonary arterial pressure. Normal inferior vena cava (IVC) size and collapse against an elevated central venous pressure. Normal aortic dimensions. Mild aortic valvular sclerosis without stenosis and only trace insufficiency. Very mild mitral annular thickening with normal leaflet thickness and excursion with no posterior systolic buckling and only very mild insufficiency. Normal appearing tricuspid valve with only trace insufficiency. No apparent intracardiac mass or pericardial effusion.
[2021-08-01] MEDS ORDERED: CEFD1CAP8 PO (11:29)
[2021-08-01] MEDS ORDERED: AZIT-12 PO (11:29)
[2021-08-01] MEDS ORDERED: PROBCAP14 PO (11:35)
[2021-08-01] MEDS ORDERED: AZITHROMYCIN 250MG TABLET PO SCH (16:00)
--- NOTE | 2021-08-01 19:29 | DS.PDOC ---
Discharge Summary General Date of Admission Jul 29, 2021 at 14:35 Date of Discharge Aug 01, 2021 Specialist/Consultants Involve RAMONITA, Dr. Teague Discharge Summary PROCEDURES PERFORMED DURING STAY: None ADMITTING DIAGNOSES: 1. Fever of unknown source 2. Stable COPD 3. Hypothyroidism 4. Hypertension DISCHARGE DIAGNOSES: 1. Fever secondary to community-acquired pneumonia 2. Stable COPD 3. Hypothyroidism 4. Hypertension COMPLICATIONS/CHIEF COMPLAINT: Fever Of Unkown [place]. HISTORY OF PRESENT ILLNESS: Copied from admitting providers H&P " This is a 70-year-old elderly female who presents to [facility] ER with a chief complaint of fever and chills. Patient states that the fever and chills started around 4 AM on 07/29/2021 and states that she did not try to take any medications but double layered and tried to go back to sleep. She states that she does not remember much of what happened after that. She was brought to the ER with altered mental status and did have a T-max of 102. Of note she had a left hemiarthroplasty of the hip in April 2021 and upon follow-up with her orthopedic surgeon in [place] there were some lab abnormalities and the surgeon prescribed her doxycycline. Patient cannot tolerate doxycycline due to GI upsets and vomiting is stopped taking it 4 days in. She also states that shortly after stopping doxycycline, she experienced vertigo which lasted about 3 weeks and then resolved on its own. Patient denies any recent travels or having been in c ontact with anybody sick. She denies any chest pain palpitations abdominal pain headache dizziness. " HOSPITAL COURSE: Initially, cause of fever was unknown. CXR did not demonstrate any infiltrates. Patient was tested for tick borne disease, EBV, legionella, and S. pneumoniae. Hepatitis panel was negative. ID was consulted. Dry CT chest was obtained. Dry CT chest demonstrated bilateral lower lobe infiltrates, most likely pneumonia. Procalcitonin was elevated. ID started patient on ceftriaxone and azithromycin. CAP was the most likely cause of fever. Patient did well. Last fever was 07/29/21. This morning, patient felt well and felt ready for home. Patient was discharged home with cefdinir and azithromycin to complete a total of 5 days of antibiotics. DISCHARGE MEDICATIONS: Please see below. ALLERGIES: Please see below. PHYSICAL EXAMINATION ON DISCHARGE: VITAL SIGNS: Please see below. GENERAL: Comfortable, in no apparent distress. HEENT: Sclera clear. NECK: Supple. RESPIRATORY: Lungs clear to auscultation bilaterally, no rales, wheeze or rhonchi. CARDIOVASCULAR: Regular rate and rhythm. No murmurs ABDOMEN: Soft, nontender, no guarding or rebound tenderness. Normal bowel sound s. MUSCLE SKELETAL: Muscle strength 5/5 in all extremities. NEUROLOGICAL: No focal deficits noted. PSYCHOLOGICAL: Normal mood and affect LABORATORY DATA: Please see below. IMAGING: Radiology interpretation CT left lower extremity without contrast, hip 1. Left hip hemiarthroplasty in anatomic alignment without evidence of hardware complication. Please note if there is clinical concern for intra-articular infection, joint aspiration may be useful. 2. Additional findings, as above. (Please see radiology report for full findings) CT abdomen pelvis without contrast 1. Multifocal nonspecific bronchiolitis in both lung bases, not apparent previously. 2. Calcific vascular disease of the thoracoabdominal aorta and coronary arteries. 3. Status post anti reflux surgery, gastrojejunostomy, and partial small-bowel resection. There is no evidence of bowel obstruction. 4. Reactive mesenteric and retroperitoneal lymph nodes, do not appear significantly changed. 5. Interval development of central compression of the superior endplate of L2. 6. Degenerative disc disease, L5-S1, not significantly changed. Other findings as noted. (Please see radiology report for full findings) CT head without contrast No acute hemorrhage or edema. CT chest without contrast There are patchy infiltrates in the lung cash bilaterally most notably affecting the left lower lobe and right middle lobe consistent with pneumonia. The lungs are hyperinflated. This consistent with COPD. Vascular calcification is noted. PROGNOSIS: Good ACTIVITY: As tolerated. DIET: As tolerated DISCHARGE PLAN: Home DISPOSITION: Home, Self-Care. DISCHARGE INSTRUCTIONS: 1. Follow up with PCP in 1 week 2. Continue antibiotics to completion ITEMS TO FOLLOWUP ON ON OUTPATIENT: 1. Follow up on tick borne disease panel, EBV, legionella, and strep pneumoniae results DISCHARGE CONDITION: Stable Total time spent on discharge planning, discharge summary, and medication reconciliation: 35 minutes Vital Signs/I&Os Vital Signs Date Time Temp Pulse Resp B/P (MAP) Pulse Ox O2 Delivery O2 Flow Rate FiO2 08/01/21 08:21 98 140/80 08/01/21 08:00 97.9 22 98 Room Air 07/29/21 20:45 2.0 I&O- Last 24 Hours up to 6 AM 08/01/21 06:00 Intake Total 1570 ml Output Total 950 ml Balance 620 ml Laboratory Data Labs 24H Laboratory Tests 2 08/01/21 05:03: Nucleated Red Blood Cells % (auto) 0.0, Anion Gap 8, Glomerular Filtration Rate > 60.0, Calcium Level 8.9 08/01/21 06:53: CBC/BMP Laboratory Tests 08/01/21 05:03 Microbiology Microbiology 07/29/21 Respiratory Virus Panel (PCR) (KRISTEN) - Final, Complete 07/29/21 Blood Culture - Preliminary, Resulted No Growth after 72 hours. All specime... 07/29/21 Blood Culture - Preliminary, Resulted No Growth after 72 hours. All specime... Discharge Medications Scheduled Amitriptyline HCl (Amitriptyline HCl) 25 Mg Tablet, 25 MG PO QHS, (Reported) Amlodipine Besylate (Amlodipine Besylate) 5 Mg Tablet, 5 MG PO DAILY, (Reported) Azithromycin (Azithromycin) 250 Mg Tablet, 500 MG PO DAILY@1600 Cefdinir (Cefdinir) 300 Mg Capsule, 300 MG PO BID Fluticasone/Umeclidin/Vilanter (Trelegy Ellipta 100-62.5-25) 1 Each Blst.w.dev, 1 PUFF INH DAILY, (Reported) Lactobacillus Acidophilus (Probiotic) 1 Each Capsule, 1 CAP PO DAILY Levothyroxine Sodium (Synthroid) 125 Mcg Tablet, 125 MCG PO DAILY, (Reported) Metoprolol Tartrate (Metoprolol Tartrate) 25 Mg Tablet, 25 MG PO BID, (Reported) Omeprazole (Omeprazole) 40 Mg Capsule.dr, 40 MG PO QHS, (Reported) Scheduled PRN Acetaminophen (Tylenol Extra Strength) 500 Mg Tablet, 500 MG PO Q6H PRN for MILD PAIN or TEMP > 100.4, (Reported) Ondansetron (Ondansetron Odt) 4 Mg Tab.rapdis, 4 MG PO Q4H PRN for NAUSEA, (Reported) Promethazine HCl (Promethazine HCl) 25 Mg Tablet, 25 MG PO QID PRN for NAUSEA, (Reported) Tramadol HCl (Tramadol HCl) 50 Mg Tablet, 50 MG PO Q6H PRN for MODERATE/SEVERE PAIN (PS 5-10), (Reported) Allergies Coded Allergies: NSAIDS (Non-Steroidal Anti-Inflamma (Verified Adverse Reaction, Intermediate, D/T STOMACH, 06/26/19) HALEY LIVINGSTON DO Aug 01, 2021 19:29
[2021-08-03 19:07] LABS: HSV-1 DNA Negative (Negative); HSV-2 DNA Negative (Negative)
== END 2021-08-01 12:50 | disposition home or self-care (01) | DRG 194 ==
LOC: M ED 14:34 → EDBD 14:34 → M ED INP 14:35 → M PCU 07-30 00:51
PROVIDERS: ADMIT Family Medicine; ATTEND Internal Medicine
DX: J18.9 Pneumonia, unspecified organism (principal); J44.0 Chronic obstructive pulmonary disease with (acute) lower respiratory infection; D72.829 Elevated white blood cell count, unspecified; I10 Essential (primary) hypertension; E03.9 Hypothyroidism, unspecified; K31.84 Gastroparesis; R11.0 Nausea; E89.2 Postprocedural hypoparathyroidism; Z90.49 Acquired absence of other specified parts of digestive tract; Z87.81 Personal history of (healed) traumatic fracture; Z96.643 Presence of artificial hip joint, bilateral; Z79.899 Other long term (current) drug therapy; Z88.6 Allergy status to analgesic agent

== ENCOUNTER 2021-08-03 10:31 | Emergency (ER) | payer MEDICARE ==
[~2021-08-03] VITALS: Ht 152.4 cm; Wt 52.3 kg
[~2021-08-03 10:31] MED LIST changes: +ACET-897 PO; +AZIT-12 PO; +CEFD1CAP8 PO; +METO25TA4 PO; +OMEP-221 PO; +PROBCAP14 PO; +PROM25TA22 PO; +SYNT125T PO; +TREL1AER INH
[2021-08-03 11:23] LABS: BASO % 0.5 % (0.0-1.0); EOS # 0.1 10^3/uL (0.0-0.5); EOS % 1.3 % (0.0-3.0); HEMATOCRIT 40.4 % (36.0-47.0); HEMOGLOBIN 12.6 g/dl (12.0-15.5); LYMPH # 0.9 10^3/uL (1.5-5.0); LYMPH % 11.6 % (24.0-44.0); MEAN CORPUSCULAR HEMOGLOBIN 27.2 pg (27.0-33.0); MEAN CORPUSCULAR HGB CONC 31.2 g/dl (32.0-36.5); MEAN CORPUSCULAR VOLUME 87.1 fl (80.0-96.0); MONO # 0.5 10^3/uL (0.0-0.8); MONO % 6.6 % (2.0-8.0); NEUTROPHILS # 6.3 10^3/uL (1.5-8.5); NEUTROPHILS % 79.4 % (36.0-66.0); PLATELET COUNT, AUTOMATED 373 10^3/uL (150-450); RED BLOOD COUNT 4.64 10^6/uL (4.00-5.40); WHITE BLOOD COUNT 7.9 10^3/uL (4.0-10.0)
[2021-08-03 11:48] LABS: ALT/SGPT 19 U/L (12-78); BILIRUBIN,DIRECT 0.1 MG/DL (0.0-0.2); BILIRUBIN,TOTAL 0.4 MG/DL (0.2-1.0); BLOOD UREA NITROGEN 8 MG/DL (7-18); CALCIUM LEVEL 8.7 MG/DL (8.8-10.2); CARBON DIOXIDE LEVEL 27 MEQ/L (21-32); CHLORIDE LEVEL 104 MEQ/L (98-107); CREATININE FOR GFR 0.63 MG/DL (0.55-1.30); GLOMERULAR FILTRATION RATE > 60.0 (>39); GLUCOSE, FASTING 122 MG/DL (70-100); POTASSIUM SERUM 4.2 MEQ/L (3.5-5.1); SODIUM LEVEL 137 MEQ/L (136-145); TOTAL PROTEIN 6.5 GM/DL (6.4-8.2)
[2021-08-03] MEDS ORDERED: NS 1,000 ML IV SCH (12:10)
[2021-08-03] MEDS ORDERED: ONDANSETRON 4MG/2ML VIAL IV ONE (12:10)
--- NOTE | 2021-08-03 13:11 | REP ---
INDICATION: cough; vomiting. COMPARISON: Comparison chest x-ray July 29, 2021. TECHNIQUE: Three views including upright chest radiograph. Acute abdominal series. FINDINGS: Upright chest radiograph shows a EKG monitoring electrodes. The lungs are well inflated and clear. There is no evidence of infiltrate or free subdiaphragmatic air. Heart is not enlarged. There is diffuse osteopenia. Supine and erect views of the abdomen demonstrates sutures and clips in the upper abdomen and sutures in the right lower quadrant. Patient is status post bilateral hemiarthroplasty of the hips. The bowel gas pattern is normal. Flank stripes are intact. Psoas margins are symmetric. There is some vascular calcification. IMPRESSION: Postoperative changes in the abdomen and pelvis. Normal bowel gas pattern. No active disease in the chest. <Electronically signed by Victorino Crow > 08/03/21 [id number]
[2021-08-03] MEDS ORDERED: METOCLOPRAMIDE INJ 10MG/2ML VIAL (J2765 PER 1) IV ONE (15:40)
[2021-08-03] MEDS ORDERED: ONDA4TAB6 PO (17:13)
[2021-08-03 17:48] VITALS: BP 179/80
== END 2021-08-03 18:00 | disposition home or self-care (01) ==
LOC: M ED 10:31
DX: R11.2 Nausea with vomiting, unspecified (principal); I10 Essential (primary) hypertension; J44.9 Chronic obstructive pulmonary disease, unspecified; E03.9 Hypothyroidism, unspecified; K21.9 Gastro-esophageal reflux disease without esophagitis; K57.92 Diverticulitis of intestine, part unspecified, without perforation or abscess without bleeding; Z87.442 Personal history of urinary calculi; Z79.899 Other long term (current) drug therapy; Z88.6 Allergy status to analgesic agent
CPT/HCPCS: 74021; 80048; 80076; 83605; 85025; 87505; 96361; 96374; 99285; J2405; J2765

== ENCOUNTER → 2021-08-18 | Outpatient (CLI) | payer MEDICARE ==
--- NOTE | 2021-08-18 12:21 | REP ---
INDICATION: PAIN COMPARISON: None. TECHNIQUE: AP, lateral, bilateral oblique views right wrist. FINDINGS: Osteopenia and advanced degenerative changes are appreciated including jean carpal periarticular sclerosis with joint space narrowing, osteophytosis and chronic subluxation with joint space narrowing primarily noted at the 1st and 2nd carpometacarpal joints, as well as elements of chondrocalcinosis at the TFCC. No obvious acute fracture or dislocation. IMPRESSION: Osteopenia and advanced jean carpal degenerative changes. <Electronically signed by Dejan Ledbetter > 08/18/21 [id number]
== END ==
LOC: M WUC 11:48
PROVIDERS: ATTEND Internal Medicine
DX: M25.531 Pain in right wrist (principal); M19.031 Primary osteoarthritis, right wrist

== ENCOUNTER → 2021-09-03 | Outpatient (CLI) | payer MEDICARE ==
--- NOTE | 2021-09-03 13:21 | REP ---
INDICATION: PNEUMONIA. COMPARISON: Frontal view of the chest of 08/03/2021 latest prior with other priors as well FINDINGS: The superior mediastinal structures are midline. The cardiac silhouette is unremarkable in size, shape, and position. The diaphragmatic surfaces of the lungs are regular, and the costophrenic angles are clear. The pulmonary cash are clear. The imaged osseous structures are intact. IMPRESSION: There is no acute cardiopulmonary disease. <Electronically signed by Bertin Rincon > 09/03/21 [id number]
== END ==
LOC: M WUC 12:29
PROVIDERS: ATTEND Internal Medicine
DX: R79.82 Elevated C-reactive protein (CRP) (principal); J17 Pneumonia in diseases classified elsewhere

== ENCOUNTER 2021-10-14 08:10 | Outpatient (CLI) | payer MEDICARE ==
[~2021-10-14] VITALS: Ht 152.4 cm; Wt 46.5 kg
[~2021-10-14 08:10] MED LIST changes: +ALBUTEROL 90 MCG/ACT 8GM HFA INHALER INH PRN; +ALBUTEROL SULFATE 2.5 MG/0.5 ML INH NEB SOLN INH PRN; +EPINEPHrine INJ 1 MG/ML 1ML AMP IM PRN; +NS 1,000 ML IV SCH; +diphenhydrAMINE 50MG/ML VIAL (J1200) IV PRN; +methylPREDNISolone 125MG 2ML VIAL IV PRN
[2021-10-14] MEDS ORDERED: ACETAMINOPHEN TAB 650MG DOSE (2X325MG) PO ONE (08:30)
[2021-10-14] MEDS ORDERED: CASIRIVIMAB (REGN10933) 600 MG, IMDEVIMAB (REGN10987) 600 MG in NS 250 ML IV ONE (08:30)
[2021-10-14 08:49] VITALS: BP 158/75
[2021-10-14 09:19] VITALS: BP 130/75
[2021-10-14 09:49] VITALS: BP 125/75
[2021-10-14 10:49] VITALS: BP 147/76
== END 2021-10-14 10:49 | disposition home or self-care (01) ==
LOC: M OPCLI4PR 08:10
PROVIDERS: ATTEND Internal Medicine
DX: U07.1 COVID-19 (principal); Z88.6 Allergy status to analgesic agent

== ENCOUNTER → 2022-03-30 | Outpatient (REF) | payer MEDICARE ==
[~2022-03-30] MED LIST changes: -ALBUTEROL 90 MCG/ACT 8GM HFA INHALER INH PRN; -ALBUTEROL SULFATE 2.5 MG/0.5 ML INH NEB SOLN INH PRN; -CEFD1CAP8 PO; +CEFD300C41 PO; -EPINEPHrine INJ 1 MG/ML 1ML AMP IM PRN; +FLUT1BLS8 INH; -NS 1,000 ML IV SCH; +OLAN1TAB20 PO; -OMEP-221 PO; +OMEP40CA5 PO; +PARO20TA3 PO; -diphenhydrAMINE 50MG/ML VIAL (J1200) IV PRN; -methylPREDNISolone 125MG 2ML VIAL IV PRN
[2022-03-30 17:15] LABS: BASO % 0.4 % (0.0-1.0); EOS # 0.2 10^3/uL (0.0-0.5); EOS % 2.8 % (0.0-3.0); HEMATOCRIT 42.9 % (36.0-47.0); HEMOGLOBIN 13.3 g/dl (12.0-15.5); LYMPH # 1.4 10^3/uL (1.5-5.0); LYMPH % 19.2 % (24.0-44.0); MEAN CORPUSCULAR HEMOGLOBIN 27.5 pg (27.0-33.0); MEAN CORPUSCULAR VOLUME 88.8 fl (80.0-96.0); MONO # 0.6 10^3/uL (0.0-0.8); MONO % 8.6 % (2.0-8.0); NEUTROPHILS % 68.6 % (36.0-66.0); PLATELET COUNT, AUTOMATED 321 10^3/uL (150-450); RED BLOOD COUNT 4.83 10^6/uL (4.00-5.40); WHITE BLOOD COUNT 7.2 10^3/uL (4.0-10.0)
[2022-03-30 17:41] LABS: CREATININE,RANDOM URINE 57.9 MG/DL; TOTAL PROTEIN,RANDOM URINE 12.5 MG/DL (0.0-12.0)
[2022-03-30 17:50] LABS: APPEARANCE, URINE CLEAR (CLEAR); BACTERIA, URINE AUTO NEGATIVE (NEGATIVE); BILIRUBIN, URINE AUTO NEGATIVE (NEGATIVE); BLOOD, URINE BLOOD NEGATIVE (NEGATIVE); COLOR, URINE YELLOW (YELLOW); GLUCOSE, URINE (UA) AUTO NEGATIVE (NEGATIVE); KETONE, URINE AUTO NEGATIVE (NEGATIVE); LEUKOCYTE ESTERASE, URINE AUTO NEGATIVE (NEGATIVE); MUCUS, URINE SMALL (NEGATIVE); NITRITE, URINE AUTO NEGATIVE (NEGATIVE); PROTEIN, URINE AUTO NEGATIVE (NEGATIVE); RBC, URINE AUTO 0 /HPF (0-3); SPECIFIC GRAVITY URINE AUTO 1.015 (1.002-1.035); SQUAMOUS EPITHELIAL CELL UR AU 0 /HPF (0-6); UROBILINOGEN, URINE AUTO 0.2 mg/dL (0.0-2.0); WBC, URINE AUTO 1 /HPF (0-3)
[2022-03-30 17:52] LABS: ALBUMIN 3.9 GM/DL (3.2-5.2); ALT/SGPT 27 U/L (12-78); BILIRUBIN,DIRECT < 0.1 MG/DL (0.0-0.2); BILIRUBIN,TOTAL 0.4 MG/DL (0.2-1.0); BLOOD UREA NITROGEN 16 MG/DL (7-18); C REACTIVE PROTEIN QUANTITATIV 0.36 MG/DL (0.00-0.30); CALCIUM LEVEL 9.7 MG/DL (8.8-10.2); CARBON DIOXIDE LEVEL 26 MEQ/L (21-32); CHLORIDE LEVEL 105 MEQ/L (98-107); COMPLEMENT C3 136 MG/DL (90-180); COMPLEMENT C4 39 MG/DL (10-40); CREATININE FOR GFR 0.68 MG/DL (0.55-1.30); GLOMERULAR FILTRATION RATE > 60.0 (>39); GLUCOSE, FASTING 101 MG/DL (70-100); IMMUNOGLOBULIN G 915 MG/DL (681-1648); IMMUNOGLOBULIN M 63.2 MG/DL (40-230); MAGNESIUM LEVEL 1.9 MG/DL (1.8-2.4); PHOSPHORUS LEVEL 3.5 MG/DL (2.5-4.9); POTASSIUM SERUM 4.2 MEQ/L (3.5-5.1); SODIUM LEVEL 134 MEQ/L (136-145); TOTAL PROTEIN 7.5 GM/DL (6.4-8.2)
[2022-03-30 17:59] LABS: TOTAL 25(OH) VITAMIN D 34.5 NG/ML (30.0-100.0)
[2022-03-30 18:00] LABS: PTH INTACT 98.4 PG/ML (18.5-88.0)
[2022-03-30 18:56] LABS: ERYTHROCYTE SEDIMENTATION RATE 18 mm/hr (0-30)
[2022-04-01 09:13] LABS: DRVV SCREEN 39.6 SEC
[2022-04-06 14:17] LABS: ALBUMIN 4.28 GM/DL (3.29-5.55); ALBUMIN % 57.1 % (55.8-66.1); ALPHA-1-GLOBULIN % 5.1 % (2.9-4.9); ALPHA-1-GLOBULINS 0.38 GM/DL (0.17-0.41); ALPHA-2-GLOBULINS % 12.8 % (7.1-11.8); BETA-2-GLOBULINS % 5.8 % (3.2-6.5); GAMMA GLOBULIN % 12.2 % (11.1-18.8)
[2022-04-06 14:18] LABS: ALPHA-2-GLOBULINS 0.96 GM/DL (0.42-0.99); BETA-1-GLOBULINS 0.53 GM/DL (0.28-0.60); BETA-2-GLOBULINS 0.44 GM/DL (0.19-0.55); GAMMA GLOBULINS 0.92 GM/DL (0.65-1.58)
== END ==
LOC: M SFHCRHEU 14:09
PROVIDERS: ATTEND Internal Medicine
DX: M81.0 Age-related osteoporosis without current pathological fracture (principal); R79.82 Elevated C-reactive protein (CRP); M25.50 Pain in unspecified joint; M11.20 Other chondrocalcinosis, unspecified site; D72.810 Lymphocytopenia

== ENCOUNTER → 2022-04-08 | Outpatient (CLI) | payer MEDICARE | LOC: M WHC 12:15 | PROVIDERS: ATTEND Internal Medicine | DX: M81.0 Age-related osteoporosis without current pathological fracture (principal) ==

== ENCOUNTER → 2022-06-03 | Outpatient (CLI) | payer MEDICARE | LOC: M WUC 14:52 | PROVIDERS: ATTEND Internal Medicine | DX: M85.88 Other specified disorders of bone density and structure, other site (principal); M53.86 Other specified dorsopathies, lumbar region; M19.031 Primary osteoarthritis, right wrist; M19.032 Primary osteoarthritis, left wrist; M19.041 Primary osteoarthritis, right hand; M19.042 Primary osteoarthritis, left hand; M85.871 Other specified disorders of bone density and structure, right ankle and foot; M85.872 Other specified disorders of bone density and structure, left ankle and foot; M25.50 Pain in unspecified joint; M54.9 Dorsalgia, unspecified ==

== ENCOUNTER 2023-09-04 16:59 | Emergency (ER) | payer MEDICARE ==
[~2023-09-04] VITALS: Ht 152.4 cm; Wt 56.8 kg
[2023-09-04 16:59] VITALS: TEMP 96
[~2023-09-04 16:59] MED LIST changes: -AMIT25TA17 PO; +AMIT25TA19 PO; +AREDS PO; -CEFD300C41 PO; +CEFD300C42 PO; +D 10CHW PO; +LEVO112T2 PO; +MULT1TAB16 PO
[2023-09-04 17:56] LABS: VENOUS BASE EXCESS 2.9 (-2.0-2.0); VENOUS HCO3 28.2 MMOL/L (23.0-27.0); VENOUS O2 SATURATION 53.7 % (60.0-80.0); VENOUS PARTIAL PRESSURE CO2 45.8 mmHg (38.0-50.0); VENOUS PARTIAL PRESSURE O2 28.1 mmHg (30.0-50.0); VENOUS PH 7.407 UNITS (7.330-7.430); VENOUS STANDARD HCO3 25.9 MMOL/L; VENOUS TOTAL CO2 29.6 MMOL/L (24.0-28.0)
[2023-09-04 18:00] LABS: BASO % 0.3 % (0.0-1.0); EOS # 0.3 10^3/uL (0.0-0.5); EOS % 2.7 % (0.0-3.0); HEMATOCRIT 40.9 % (36.0-47.0); HEMOGLOBIN 13.4 g/dl (12.0-15.5); LYMPH # 1.3 10^3/uL (1.5-5.0); LYMPH % 12.2 % (24.0-44.0); MEAN CORPUSCULAR HEMOGLOBIN 27.9 pg (27.0-33.0); MEAN CORPUSCULAR HGB CONC 32.8 g/dl (32.0-36.5); MEAN CORPUSCULAR VOLUME 85.2 fl (80.0-96.0); MONO # 0.7 10^3/uL (0.0-0.8); MONO % 6.7 % (2.0-8.0); NEUTROPHILS # 8.5 10^3/uL (1.5-8.5); NEUTROPHILS % 77.6 % (36.0-66.0); PLATELET COUNT, AUTOMATED 362 10^3/uL (150-450); WHITE BLOOD COUNT 10.9 10^3/uL (4.0-10.0)
[2023-09-04] MEDS ORDERED: methylPREDNISolone 125MG 2ML VIAL IV ONE (18:00)
[2023-09-04 18:14] VITALS: O2SAT 95
[2023-09-04 18:15] VITALS: BP 144/79
[2023-09-04 18:27] LABS: THYROID STIMULATING HORMONE 2.849 uIU/ML (0.55-4.78)
[2023-09-04 18:28] LABS: THYROXINE (T4) 11.5 UG/DL (4.5-10.9)
[2023-09-04 18:46] LABS: ALBUMIN 3.1 G/DL (3.2-5.2); ALKALINE PHOSPHATASE 166 U/L (46-116); ALT/SGPT 15 U/L (7.0-40); AST/SGOT 15 U/L (<34); BILIRUBIN,DIRECT 0.2 MG/DL (<0.4); BILIRUBIN,TOTAL 0.5 MG/DL (0.3-1.2); BLOOD UREA NITROGEN 6 MG/DL (9-23); CALCIUM LEVEL 9.1 MG/DL (8.3-10.6); CARBON DIOXIDE LEVEL 30 MMOL/L (20-31); CHLORIDE LEVEL 101 MMOL/L (98-107); CREATININE FOR GFR 0.54 MG/DL (0.55-1.30); GLOMERULAR FILTRATION RATE > 60.0 (>39); GLUCOSE, FASTING 144 MG/DL (74-106); POTASSIUM SERUM 2.9 MMOL/L (3.5-5.1); SODIUM LEVEL 141 MMOL/L (136-145)
[2023-09-04] MEDS ORDERED: POTASSIUM CHLORIDE 10MEQ SR TABLET PO ONE (19:25)
[2023-09-04 19:41] LABS: MAGNESIUM LEVEL 1.7 MG/DL (1.8-2.4)
[2023-09-04] MEDS ORDERED: ISOVUE-370 76% 100ML VIAL As Ordered ONE (19:44)
== END 2023-09-04 20:01 | disposition left against medical advice (07) ==
LOC: M ED 16:59
DX: R06.02 Shortness of breath (principal); Z53.9 Procedure and treatment not carried out, unspecified reason; I10 Essential (primary) hypertension; E03.9 Hypothyroidism, unspecified; J44.9 Chronic obstructive pulmonary disease, unspecified; Z87.891 Personal history of nicotine dependence; Z79.899 Other long term (current) drug therapy; Z88.6 Allergy status to analgesic agent
CPT/HCPCS: 71045; 80048; 80076; 81001; 82803; 83735; 83880; 84436; 84443; 85025; 87040; 87486; 87581; 87633; 87798; 93005; 93041; 94760; 96374; 99284; J2930

== ENCOUNTER → 2023-09-15 | Outpatient (CLI) | payer MEDICARE | LOC: M WUC 11:29 | PROVIDERS: ATTEND Internal Medicine | DX: R06.00 Dyspnea, unspecified (principal) ==

== ENCOUNTER 2023-11-10 07:38 | Emergency (ER) | payer MEDICARE ==
[~2023-11-10] VITALS: Ht 152.4 cm; Wt 55.9 kg
[~2023-11-10 07:38] MED LIST changes: +CEFD1CAP9 PO; -CEFD300C42 PO
[2023-11-10 07:46] VITALS: BP 135/65; TEMP 98.1; O2SAT 95
== END 2023-11-10 08:03 | disposition left against medical advice (07) ==
LOC: M ED 07:38 → EDBD 07:38 → M ED 08:03
DX: Z53.21 Procedure and treatment not carried out due to patient leaving prior to being seen by health care provider (principal)

== ENCOUNTER → 2023-11-14 | Outpatient (CLI) | payer MEDICARE ==
[2023-11-14 10:32] LABS: HEMATOCRIT 40.4 % (36.0-47.0); HEMOGLOBIN 12.9 g/dl (12.0-15.5); MEAN CORPUSCULAR HEMOGLOBIN 28.3 pg (27.0-33.0); MEAN CORPUSCULAR HGB CONC 31.9 g/dl (32.0-36.5); MEAN CORPUSCULAR VOLUME 88.6 fl (80.0-96.0); PLATELET COUNT, AUTOMATED 322 10^3/uL (150-450); RED BLOOD COUNT 4.56 10^6/uL (4.00-5.40); WHITE BLOOD COUNT 11.1 10^3/uL (4.0-10.0)
[2023-11-14 10:55] LABS: BLOOD UREA NITROGEN 14 MG/DL (9-23); CALCIUM LEVEL 8.9 MG/DL (8.3-10.6); CARBON DIOXIDE LEVEL 33 MMOL/L (20-31); CHLORIDE LEVEL 101 MMOL/L (98-107); CREATININE FOR GFR 0.66 MG/DL (0.55-1.30); GLOMERULAR FILTRATION RATE > 60.0 (>39); GLUCOSE, FASTING 81 MG/DL (74-106); POTASSIUM SERUM 3.3 MMOL/L (3.5-5.1); SODIUM LEVEL 139 MMOL/L (136-145)
== END ==
LOC: M WUC 08:04
PROVIDERS: ATTEND Internal Medicine
DX: E87.6 Hypokalemia (principal); J18.9 Pneumonia, unspecified organism

== ENCOUNTER → 2023-12-22 | Outpatient (CLI) | payer MEDICARE | LOC: M WUC 08:04 | PROVIDERS: ATTEND Internal Medicine | DX: R05.9 Cough, unspecified (principal) ==

== ENCOUNTER → 2024-06-01 | Outpatient (CLI) | payer MEDICARE ==
[~2024-06-01] MED LIST changes: +ONDA-282 PO; -ONDA4TAB6 PO
== END ==
LOC: M SOG 07:56
PROVIDERS: ATTEND Physician Assistant
DX: S52.502A Unspecified fracture of the lower end of left radius, initial encounter for closed fracture (principal); Y93.9 Activity, unspecified; Y92.9 Unspecified place or not applicable

== ENCOUNTER → 2024-06-18 | Outpatient (CLI) | payer MEDICARE | LOC: M WUC 14:14 | PROVIDERS: ATTEND Physician Assistant | DX: S52.502A Unspecified fracture of the lower end of left radius, initial encounter for closed fracture (principal); Y93.9 Activity, unspecified; Y92.9 Unspecified place or not applicable ==

== ENCOUNTER → 2024-06-28 | Outpatient (CLI) | payer MEDICARE | LOC: M SOG 07:53 | PROVIDERS: ATTEND Physician Assistant | DX: S52.502A Unspecified fracture of the lower end of left radius, initial encounter for closed fracture (principal); W18.30XA Fall on same level, unspecified, initial encounter; Y92.009 Unspecified place in unspecified non-institutional (private) residence as the place of occurrence of the external cause ==

== ENCOUNTER → 2024-07-04 | Outpatient (CLI) | payer MEDICARE | LOC: M SOG 08:07 | PROVIDERS: ATTEND Physician Assistant | DX: Z53.9 Procedure and treatment not carried out, unspecified reason (principal) ==

== ENCOUNTER → 2024-07-12 | Outpatient (CLI) | payer MEDICARE | LOC: M SOG 07:56 | PROVIDERS: ATTEND Physician Assistant | DX: S52.502A Unspecified fracture of the lower end of left radius, initial encounter for closed fracture (principal); W18.30XA Fall on same level, unspecified, initial encounter; Y92.009 Unspecified place in unspecified non-institutional (private) residence as the place of occurrence of the external cause ==

== ENCOUNTER → 2024-08-14 | Outpatient (CLI) | payer MEDICARE | LOC: M SOG 07:24 | PROVIDERS: ATTEND Physician Assistant | DX: S52.502A Unspecified fracture of the lower end of left radius, initial encounter for closed fracture (principal); W18.30XA Fall on same level, unspecified, initial encounter; Y92.009 Unspecified place in unspecified non-institutional (private) residence as the place of occurrence of the external cause ==

== ENCOUNTER → 2024-09-11 | Outpatient (CLI) | payer MEDICARE | LOC: M SOG 07:48 | PROVIDERS: ATTEND Physician Assistant | DX: S52.502A Unspecified fracture of the lower end of left radius, initial encounter for closed fracture (principal); W18.30XA Fall on same level, unspecified, initial encounter; Y92.009 Unspecified place in unspecified non-institutional (private) residence as the place of occurrence of the external cause ==

== ENCOUNTER → 2025-08-01 | Outpatient (CLI) | payer MEDICARE ==
[~2025-08-01] MED LIST changes: -CYCL5TAB PO; +CYCL5TAB4 PO
== END ==
LOC: M PLAIMG 11:18
PROVIDERS: ATTEND Internal Medicine Pulmonary Disease
DX: R91.8 Other nonspecific abnormal finding of lung field (principal)